=== PATIENT | male | born 1955 | race Two or more races ===

== ENCOUNTER 2019-06-28 13:25 | Inpatient (IN) | payer BC ==
[~2019-06-28] VITALS: Ht 160 cm; Wt 78.9 kg
[2019-06-28] VITALS (7 sets, daily range): BP systolic 96–132; BP diastolic 60–82
[2019-06-28 14:18] LABS: BASO % 0 % (0-3); EOS # 0.1 x10^3/uL (0.0-0.7); EOS % 1 % (0-3); HEMATOCRIT 40.1 % (39.0-53.0); HEMOGLOBIN 13.4 g/dL (13.0-17.5); LYMPH % 8 % (24-48); MEAN CORPUSCULAR HEMOGLOBIN 30 pg (25-35); MEAN CORPUSCULAR HGB CONC 33 g/dL (31-37); MEAN CORPUSCULAR VOLUME 91 fL (79-100); MONO # 0.3 x10^3/uL (0.0-1.1); MONO % 2 % (0-9); NEUT # 10.5 x10^3/uL (1.8-7.7); NEUT % 88 % (31-73); PLATELET COUNT 426 x10^3/uL (140-400); RED BLOOD COUNT 4.42 x10^6/uL (4.30-5.70); RED CELL DISTRIBUTION WIDTH 13.5 % (11.5-14.5); WHITE BLOOD COUNT 11.9 x10^3/uL (4.0-11.0)
[2019-06-28 14:23] LABS: BILIRUBIN,URINE NEGATIVE (NEG); CLARITY,URINE CLEAR; COLOR,URINE AMBER; NITRITE,URINE NEGATIVE (NEG); PH,URINE 5.5; PROTEIN,URINE 100 mg/dL (NEG-TRACE)
[2019-06-28 14:27] LABS: PROTHROMBIN TIME PATIENT 15.9 SEC (11.7-14.0)
[2019-06-28 14:33] LABS: AMORPHOUS SEDIMENT,UR PRESENT /HPF; HYALINE CASTS, URINE FEW /HPF; SQUAMOUS EPITHELIAL CELL,UR FEW /LPF
[2019-06-28 14:34] LABS: GRANULAR CASTS,URINE MODERATE /HPF
[2019-06-28 14:35] LABS: BACTERIA,URINE FEW /HPF (0-FEW)
[2019-06-28 14:42] LABS: CALCIUM 9.1 mg/dL (8.5-10.1); CREATININE 2.1 mg/dL (0.7-1.3); GFR 31.9; POTASSIUM 3.9 mmol/L (3.5-5.1)
[2019-06-28 14:54] LABS: ALBUMIN 2.7 g/dL (3.4-5.0); ALBUMIN/GLOBULIN RATIO 0.5 (1.0-1.7); TOTAL BILIRUBIN 0.9 mg/dL (0.2-1.0); TOTAL PROTEIN 8.5 g/dL (6.4-8.2)
[2019-06-28] MEDS ORDERED: ONDANSETRON PF 4 MG/2 ML VIAL. IV ONE (15:00)
[2019-06-28] MEDS ORDERED: IV NORMAL SALINE 1000ML BAG 1,000 ML IV ONE ×2 (15:00→15:15)
[2019-06-28] MEDS ORDERED: fentaNYL PF VIAL 100 MCG/2 ML VIAL IVP ONE ×2 (15:00→17:00)
[2019-06-28] MEDS ORDERED: VANCOMYCIN 1GM IVPB FOR OMNI 250 ML IV ONE (15:15)
[2019-06-28] MEDS ORDERED: PIPERACILLIN/TAZOBACTAM 3.375 GM in IV NORMAL SALINE 50ML 50 ML IV ONE (15:15)
--- NOTE | 2019-06-28 15:17 | PHYS DOC ---
Past Medical History Past Medical History: Hypertension Past Surgical History: No Surgical History Alcohol Use: None Drug Use: None Adult General Chief Complaint Chief Complaint: ABDOMINAL PAIN HPI HPI Patient is a 63 year old male with history of hypertension who presents with complaining of abdominal pain. Patient complaining of constant and sharp lower abdominal pain for the last 2 weeks that getting worse with movement. Patient denies nausea and vomiting, diarrhea and constipation, urinary symptoms, fever and chills, abdominal distention, anorexia, history of abdominal pain. Review of Systems Review of Systems Constitutional: Denies fever or chills [] Eyes: Denies change in visual acuity, redness, or eye pain [] HENT: Denies nasal congestion or sore throat [] Respiratory: Denies cough or shortness of breath [] Cardiovascular: No additional information not addressed in HPI [] GI: Reports abdominal pain, denies nausea, vomiting, bloody stools or diarrhea [] : Denies dysuria or hematuria [] Musculoskeletal: Denies back pain or joint pain [] Integument: Denies rash or skin lesions [] Neurologic: Denies headache, focal weakness or sensory changes [] Endocrine: Denies polyuria or polydipsia [] All other systems were reviewed and found to be within normal limits, except as documented in this note. Current Medications Current Medications Allergies Allergies Allergies Coded Allergies Type Severity Reaction Last Updated Verified No Known Drug Allergies 06/28/19 No Physical Exam Physical Exam Constitutional: Well developed, well nourished, moderately distress, non-toxic appearance. [] HENT: Normocephalic, atraumatic, dry oral mucosa Eyes: PERRLA, EOMI, conjunctiva normal, no discharge. [] Neck: Normal range of motion, no tenderness, supple, no stridor. [] Cardiovascular: Tachycardia, systolic murmur [] Lungs & Thorax: Bilateral breath sounds clear to auscultation [] Abdomen: Mildly distended abdomen, increased bowel sounds, generalized t enderness with maximum tenderness in right lower quadrant with rebound tenderness. Skin: Warm, dry, no erythema, no rash. [] Back: No tenderness, no CVA tenderness. [] Extremities: No tenderness, no cyanosis, no clubbing, ROM intact, no edema. [] Neurologic: Alert and oriented X 3, normal motor function, normal sensory function, no focal deficits noted. [] Psychologic: Affect normal, judgement normal, mood normal. [] Current Patient Data Vital Signs Vital Signs Date Time Temp Pulse Resp B/P (MAP) Pulse Ox O2 Delivery O2 Flow Rate FiO2 06/28/19 14:45 104 17 102/60 (74) 97 Room Air 06/28/19 13:30 99.0 99.0 Lab Values Laboratory Tests Test 06/28/19 13:36 06/28/19 13:47 Urine Color Angela Urine Clarity Clear Urine pH 5.5 Urine Specific [place] 1.025 Urine Protein 100 mg/dL (NEG-TRACE) Urine Glucose (UA) Negative mg/dL (NEG) Urine Ketones (Stick) Negative mg/dL (NEG) Urine Blood Small (NEG) Urine Nitrite Negative (NEG) Urine Bilirubin Negative (NEG) Urine Urobilinogen Dipstick 1.0 mg/dL (0.2 mg/dL) Urine Leukocyte Esterase Trace (NEG) Urine RBC 3-5 /HPF (0-2) Urine WBC 1-4 /HPF (0-4) Urine Squamous Epithelial Cells Few /LPF Urine Amorphous Sediment Present /HPF Urine Bacteria Few /HPF (0-FEW) Urine Hyaline Casts Few /HPF Urine Granular Casts Moderate /HPF Urine Mucus Marked /LPF White Blood Count 11.9 x10^3/uL (4.0-11.0) H Red Blood Count 4.42 x10^6/uL (4.30-5.70) Hemoglobin 13.4 g/dL (13.0-17.5) Hematocrit 40.1 % (39.0-53.0) Mean Corpuscular Volume 91 fL (79-100) Mean Corpuscular Hemoglobin 30 pg (25-35) Mean Corpuscular Hemoglobin Concent 33 g/dL (31-37) Red Cell Distribution Width 13.5 % (11.5-14.5) Platelet Count 426 x10^3/uL (140-400) H Neutrophils (%) (Auto) 88 % (31-73) H Lymphocytes (%) (Auto) 8 % (24-48) L Monocytes (%) (Auto) 2 % (0-9) Eosinophils (%) (Auto) 1 % (0-3) Basophils (%) (Auto) 0 % (0-3) Neutrophils # (Auto) 10.5 x10^3/uL (1.8-7.7) H Lymphocytes # (Auto) 1.0 x10^3/uL (1.0-4.8) Monocytes # (Auto) 0.3 x10^3/uL (0.0-1.1) Eosinophils # (Auto) 0.1 x10^3/uL (0.0-0.7) Basophils # (Auto) 0.0 x10^3/uL (0.0-0.2) Segmented Neutrophils % 58 % (35-66) Band Neutrophils % 32 % (0-9) H Lymphocytes % 8 % (24-48) L Monocytes % 2 % (0-10) Dohle Bodies Present Platelet Estimate Increased (ADEQUATE) Prothrombin Time 15.9 SEC (11.7-14.0) H Prothrombin Time INR 1.3 (0.8-1.1) H Activated Partial Thromboplast Time 30 SEC (24-38) Sodium Level 133 mmol/L (136-145) L Potassium Level 3.9 mmol/L (3.5-5.1) Chloride Level 93 mmol/L (98-107) L Carbon Dioxide Level 29 mmol/L (21-32) Anion Gap 11 (6-14) Blood Urea Nitrogen 30 mg/dL (8-26) H Creatinine 2.1 mg/dL (0.7-1.3) H Estimated GFR (Cockcroft-Gault) 31.9 BUN/Creatinine Ratio 14 (6-20) Glucose Level 164 mg/dL (70-99) H Lactic Acid Level 7.2 mmol/L (0.4-2.0) *H Calcium Level 9.1 mg/dL (8.5-10.1) Total Bilirubin 0.9 mg/dL (0.2-1.0) Aspartate Amino Transferase (AST) 31 U/L (15-37) Alanine Aminotransferase (ALT) 35 U/L (16-63) Alkaline Phosphatase 202 U/L (46-116) H Troponin I Quantitative < 0.017 ng/mL (0.000-0.055) AP-Vwh-M-Type Natriuretic Peptide 343 pg/mL (0-124) H Total Protein 8.5 g/dL (6.4-8.2) H Albumin 2.7 g/dL (3.4-5.0) L Albumin/Globulin Ratio 0.5 (1.0-1.7) L Lipase 284 U/L (73-393) Laboratory Tests 06/28/19 13:47 Laboratory Tests 06/28/19 13:47 EKG EKG EKG interpreted by me. EKG at 1401 showed sinus tachycardia at rate of 109, normal WA and QT intervals, no acute ST and T-wave elevation. Radiology/Procedures Radiology/Procedures [][facility] [address] [place] [address] IMAGING REPORT Signed PATIENT: JUSTUS JAMESACCOUNT: [id number] : 1955 LOCATION: [facility]TH AGE: 63 SEX: M EXAM STATUS: ADM IN ORD. PHYSICIAN: BRITTA NIETO MD REASON: abdominal pain, X 2 WEEKS WORSE TODDAY PROCEDURE: CT ABD PEL W/ORAL CONTRST ONLY CT ABD PEL W/ORAL CONTRST ONLY dated 06/28/2019 3:27 PM Indication: Abdominal pain for 2 weeks, worse today. Comparison: No comparison is available. Technique: CT images were made following oral contrast ingestion. No IV contrast was given. One or more of the following individualized dose reduction techniques were utilized for this examination: 1. Automated exposure control 2. Adjustment of the mA and/or kV according to patient size 3. Use of iterative reconstruction technique Findings: There is a small right-sided pleural effusion. The lung bases otherwise are clear. The most superior portion of the liver was not entirely included on the exam, but no abnormality is seen within the liver or spleen. Evaluation is limited somewhat by lack of IV contrast. There is a trace of fluid around the liver. There appears to be a small gallstone in the gallbladder. The kidneys show no mass or obstruction. A small cyst is seen in the lower right kidney. The adrenal glands are not enlarged. The pancreas appears normal. No retroperitoneal or mesenteric adenopathy is seen. There is an inflammatory process in the right lower quadrant. This is in the region of the cecum and descending colon. There may be an intramural fluid collection along the margin of the cecum measuring about 6.0 cm AP, 3.8 cm mediolaterally, and 6.4 cm craniocaudally. There is a dense calcification just inferior to this measuring about 2.1 x 1.3 cm. There is some surrounding fat and soft tissue density. The appendix is not clearly discerned separate from this region. There is no bowel obstruction. Images through the pelvis show no abnormality of the distal ureters or bladder. The bladder was not well-distended. No pelvic or inguinal adenopathy is seen. There are fat-containing inguinal hernias bilaterally. There is no separate pelvic mass. A small amount of free fluid is seen on the right. There is no localized collection such as an abscess. No other inflammatory process is seen. IMPRESSION: There is an inflammatory process in the right lower quadrant centered around a large calcification. This is apparently near the cecum. There may be an intramural fluid collection along the right colon wall, possibly indicating an abscess. Findings are most likely related to ruptured appendicitis, although other etiologies are possible. Results were relayed to the ER physician. Electronically signed by: Urmila Silver Jr., MD (06/28/2019 4:07 PM) [facility] [place] DICTATED and SIGNED BY: URMILA SILVER Jr, MD DATE: 06/28/19 0023 Course & Med Decision Making Course & Med Decision Making Pertinent Labs and Imaging studies reviewed. (See chart for details) Evaluation of patient in ER showed 63-year-old male patient with complaining of lower abdominal pain for 2 weeks. Patient had temperature of 99.9, mild tachycardia, generalized abdominal tenderness with more in right lower quadrant tenderness and rebound tenderness of right lower quadrant. CT of abdomen and pelvis showed right lower quadrant abscess and intramural air. On-call surgeon Dr. Umaña consulted at 1614 and plan to take patient to OR. Patient had lactic acid of more than 7 and treated with sepsis protocol with IV fluid and antibiotic. Patient had 2 doses of fentanyl with improvement of his pain. Patient requiring admission for further evaluation and treatment. Discussed with Dr. Kenney who is in agreement with admission. Discussed findings and plan with patient and family, who acknowledge understanding and agreement. Dragon Disclaimer Dragon Disclaimer This electronic medical record was generated, in whole or in part, using a voice recognition dictation system. Departure Departure Impression: Primary Impression: Acute abdomen Additional Impressions: Intra-abdominal abscess Severe sepsis Acute renal insufficiency Disposition: 09 ADMITTED INPATIENT (At 1503) Admitting Physician: [facility] (Dr. Kenney accepted admission at 1502) Condition: GUARDED Referrals: MARELY JARRELL APRN (PCP) Critical Care Time Critical care time was [] minutes exclusive of procedures. Date and Time of Reassessment Date: Jun 28, 2019 Time: 16:30 Fluid Challenge Is the fluid challenge complet: Yes IBW Target Volume Used: Yes BMI > 30: Yes Vital Signs Vital Signs: Vital Signs Date Time Temp Pulse Resp B/P (MAP) Pulse Ox O2 Delivery O2 Flow Rate FiO2 06/28/19 14:45 104 17 102/60 (74) 97 Room Air 06/28/19 13:30 99.0 99.0 Temperature Source: Oral Respirations Respiratory Pattern: Normal Cardiovascular Pulse Rhythm: Regular Heart: Nml rate, reg. rhythm Lung Sounds Breath Sounds: Clear Capillary Refil Capillary Refill: Rt Hand < 3 seconds Peripheral Pulse Pulse Location: Radial Pulse Strength: Normal (2+) Pulse Assessment Method: NIBP Integumentary Skin Moisture: Dry Problem Qualifiers BRITTA NIETO MD Jun 28, 2019 15:17
[2019-06-28 15:40] LABS: % BANDS 32 % (0-9); % LYMPHS 8 % (24-48); % MONOS 2 % (0-10); % SEGS 58 % (35-66); PLT ESTIMATE INCREASED (ADEQUATE)
[2019-06-28] MEDS ORDERED: IOHEXOL 240 MG/ML 50ML VIAL. IV ONE (15:45)
[2019-06-28] MEDS ORDERED: CONTRAST GIVEN. MC PRN (15:45)
--- NOTE | 2019-06-28 16:10 | RAD ---
CT ABD PEL W/ORAL CONTRST ONLY dated 06/28/2019 3:27 PM Indication: Abdominal pain for 2 weeks, worse today. Comparison: No comparison is available. Technique: CT images were made following oral contrast ingestion. No IV contrast was given. One or more of the following individualized dose reduction techniques were utilized for this examination: 1. Automated exposure control 2. Adjustment of the mA and/or kV according to patient size 3. Use of iterative reconstruction technique Findings: There is a small right-sided pleural effusion. The lung bases otherwise are clear. The most superior portion of the liver was not entirely included on the exam, but no abnormality is seen within the liver or spleen. Evaluation is limited somewhat by lack of IV contrast. There is a trace of fluid around the liver. There appears to be a small gallstone in the gallbladder. The kidneys show no mass or obstruction. A small cyst is seen in the lower right kidney. The adrenal glands are not enlarged. The pancreas appears normal. No retroperitoneal or mesenteric adenopathy is seen. There is an inflammatory process in the right lower quadrant. This is in the region of the cecum and descending colon. There may be an intramural fluid collection along the margin of the cecum measuring about 6.0 cm AP, 3.8 cm mediolaterally, and 6.4 cm craniocaudally. There is a dense calcification just inferior to this measuring about 2.1 x 1.3 cm. There is some surrounding fat and soft tissue density. The appendix is not clearly discerned separate from this region. There is no bowel obstruction. Images through the pelvis show no abnormality of the distal ureters or bladder. The bladder was not well-distended. No pelvic or inguinal adenopathy is seen. There are fat-containing inguinal hernias bilaterally. There is no separate pelvic mass. A small amount of free fluid is seen on the right. There is no localized collection such as an abscess. No other inflammatory process is seen. IMPRESSION: There is an inflammatory process in the right lower quadrant centered around a large calcification. This is apparently near the cecum. There may be an intramural fluid collection along the right colon wall, possibly indicating an abscess. Findings are most likely related to ruptured appendicitis, although other etiologies are possible. Results were relayed to the ER physician. Electronically signed by: Iker Silver Jr., MD (06/28/2019 4:07 PM) [facility] [place]
[2019-06-28] MEDS ORDERED: ROCURONIUM 50 MG/5 ML VIAL. ONE (16:46)
[2019-06-28] MEDS ORDERED: fentaNYL PF VIAL 100 MCG/2 ML VIAL ONE ×3 (16:46→20:27)
[2019-06-28] MEDS ORDERED: SUCCINYLCHOLINE 200 MG/10 ML VIAL. ONE (16:46)
[2019-06-28] MEDS ORDERED: PROPOFOL 20 ML IV ONE (16:46)
[2019-06-28] MEDS ORDERED: LIDOCAINE 2% PF 5 ML VIAL. ONE (16:46)
--- NOTE | 2019-06-28 17:28 | PDOC2 ---
CONSULT Date of Consult Date of Consult DATE: 06/28/19 TIME: 17:24 Reason for Consult Reason for Consult: Abdominal pain Referring Physician Referring Physician: Pablito Identification/Chief Complaint Chief Complaint Abdominal pain for 2 weeks Source Source: Chart review, Patient History of Present Illness Reason for Visit: 63-year-old male whose complaint of abdominal pain for proximally 2 weeks unrelenting becoming worse that's why came to the emergency department today. He denies any nausea vomiting fevers or chills but worsening of his abdominal pain. States he's had normal bowel movements. Past Medical History Cardiovascular: HTN Past Surgical History Past Surgical History: Other (back surgery) Family History Family History: Family History Unknown Social History No ALCOHOL: rare Drugs: None Lives: with Family Current Problem List Problem List Problems Medical Problems: (1) Acute abdomen Status: Acute (2) Acute renal insufficiency Status: Acute (3) Intra-abdominal abscess Status: Acute (4) Severe sepsis Status: Acute Current Medications Current Medications Current Medications Sodium Chloride 1,000 ml @ 1,000 mls/hr 1X ONCE IV Last administered on 06/28/19at 14:59; Start 06/28/19 at 15:00; Stop 06/28/19 at 15:59; Status DC Fentanyl Citrate (Fentanyl 2ml Vial) 50 mcg 1X ONCE IVP Last administered on 06/28/19at 15:00; Start 06/28/19 at 15:00; Stop 06/28/19 at 15:01; Status DC Ondansetron HCl (Zofran) 4 mg 1X ONCE IV Last administered on 06/28/19at 14:59; Start 06/28/19 at 15:00; Stop 06/28/19 at 15:01; Status DC Sodium Chloride 1,000 ml @ 1,000 mls/hr 1X ONCE IV Last administered on 06/28/19at 16:32; Start 06/28/19 at 15:15; Stop 06/28/19 at 16:14; Status DC Piperacillin Sod/ Tazobactam Sod 3.375 gm/Sodium Chloride 50 ml @ 100 mls/hr 1X ONCE IV Last administered on 06/28/19at 15:20; Start 06/28/19 at 15:15; Stop 06/28/19 at 15:44; Status DC Vancomycin HCl 250 ml @ 250 mls/hr 1X ONCE IV Last administered on 06/28/19at 16:29; Start 06/28/19 at 15:15; Stop 06/28/19 at 16:14; Status DC Iohexol (Omnipaque 240 Mg/ml) 50 ml 1X ONCE IV Last administered on 06/28/19at 15:20; Start 06/28/19 at 15:45; Stop 06/28/19 at 15:46; Status DC Info (CONTRAST GIVEN -- Rx MONITORING) 1 each PRN DAILY PRN MC SEE COMMENTS; Start 06/28/19 at 15:45; Stop 06/30/19 at 15:44 Sodium Chloride 1,000 ml @ 150 mls/hr Q6H40M IV ; Start 06/28/19 at 16:30; Stop 06/29/19 at 16:29 Propofol 20 ml @ As Directed STK-MED ONCE IV ; Start 06/28/19 at 16:46; Stop 06/28/19 at 16:46; Status DC Lidocaine HCl (Lidocaine Pf 2% Vial) 5 ml STK-MED ONCE .ROUTE ; Start 06/28/19 at 16:46; Stop 06/28/19 at 16:46; Status DC Fentanyl Citrate (Fentanyl 2ml Vial) 100 mcg STK-MED ONCE .ROUTE ; Start 06/28/19 at 16:46; Stop 06/28/19 at 16:46; Status DC Succinylcholine Chloride (Anectine) 200 mg STK-MED ONCE .ROUTE ; Start 06/28/19 at 16:46; Stop 06/28/19 at 16:46; Status DC Rocuronium [place] (Zemuron) 50 mg STK-MED ONCE .ROUTE ; Start 06/28/19 at 16:46; Stop 06/28/19 at 16:46; Status DC Fentanyl Citrate (Fentanyl 2ml Vial) 50 mcg 1X ONCE IVP Last administered on 06/28/19at 16:49; Start 06/28/19 at 17:00; Stop 06/28/19 at 17:01; Status DC Bupivacaine HCl/ Epinephrine Bitart (Sensorcaine-Epi 0.25%-1:779304 Mpf) 30 ml 1X ONCE INJ ; Start 06/28/19 at 18:00; Stop 06/28/19 at 18:01 Allergies Allergies: Coded Allergies: No Known Drug Allergies (Unverified , 06/28/19) ROS Gastrointestinal: Yes Abdominal Pain Physical Exam General: Alert, Oriented X3, Cooperative, moderate distress HEENT: PERRLA, EOMI Lungs: Clear to auscultation, Normal air movement Heart: Regular rate, No murmurs Abdomen: Soft, Other (diffusely tender worse in the right lower quadrant hypoactive bowel sounds mildly distended) Extremities: No edema Skin: No significant lesion Neuro: Normal speech Psych/Mental Status: Mental status NL Vitals VITALS Vital Signs Date Time Temp Pulse Resp B/P (MAP) Pulse Ox O2 Delivery O2 Flow Rate FiO2 06/28/19 16:49 17 96 Room Air 06/28/19 15:00 100 106/64 (78) 06/28/19 13:30 99.0 99.0 Labs Labs Laboratory Tests Test 06/28/19 13:36 06/28/19 13:47 Urine Color Angela Urine Clarity Clear Urine pH 5.5 Urine Specific [place] 1.025 Urine Protein 100 mg/dL (NEG-TRACE) Urine Glucose (UA) Negative mg/dL (NEG) Urine Ketones (Stick) Negative mg/dL (NEG) Urine Blood Small (NEG) Urine Nitrite Negative (NEG) Urine Bilirubin Negative (NEG) Urine Urobilinogen Dipstick 1.0 mg/dL (0.2 mg/dL) Urine Leukocyte Esterase Trace (NEG) Urine RBC 3-5 /HPF (0-2) Urine WBC 1-4 /HPF (0-4) Urine Squamous Epithelial Cells Few /LPF Urine Amorphous Sediment Present /HPF Urine Bacteria Few /HPF (0-FEW) Urine Hyaline Casts Few /HPF Urine Granular Casts Moderate /HPF Urine Mucus Marked /LPF White Blood Count 11.9 x10^3/uL (4.0-11.0) Red Blood Count 4.42 x10^6/uL (4.30-5.70) Hemoglobin 13.4 g/dL (13.0-17.5) Hematocrit 40.1 % (39.0-53.0) Mean Corpuscular Volume 91 fL (79-100) Mean Corpuscular Hemoglobin 30 pg (25-35) Mean Corpuscular Hemoglobin Concent 33 g/dL (31-37) Red Cell Distribution Width 13.5 % (11.5-14.5) Platelet Count 426 x10^3/uL (140-400) Neutrophils (%) (Auto) 88 % (31-73) Lymphocytes (%) (Auto) 8 % (24-48) Monocytes (%) (Auto) 2 % (0-9) Eosinophils (%) (Auto) 1 % (0-3) Basophils (%) (Auto) 0 % (0-3) Neutrophils # (Auto) 10.5 x10^3/uL (1.8-7.7) Lymphocytes # (Auto) 1.0 x10^3/uL (1.0-4.8) Monocytes # (Auto) 0.3 x10^3/uL (0.0-1.1) Eosinophils # (Auto) 0.1 x10^3/uL (0.0-0.7) Basophils # (Auto) 0.0 x10^3/uL (0.0-0.2) Segmented Neutrophils % 58 % (35-66) Band Neutrophils % 32 % (0-9) Lymphocytes % 8 % (24-48) Monocytes % 2 % (0-10) Dohle Bodies Present Platelet Estimate Increased (ADEQUATE) Prothrombin Time 15.9 SEC (11.7-14.0) Prothromb Time International Ratio 1.3 (0.8-1.1) Activated Partial Thromboplast Time 30 SEC (24-38) Sodium Level 133 mmol/L (136-145) Potassium Level 3.9 mmol/L (3.5-5.1) Chloride Level 93 mmol/L (98-107) Carbon Dioxide Level 29 mmol/L (21-32) Anion Gap 11 (6-14) Blood Urea Nitrogen 30 mg/dL (8-26) Creatinine 2.1 mg/dL (0.7-1.3) Estimated GFR (Cockcroft-Gault) 31.9 BUN/Creatinine Ratio 14 (6-20) Glucose Level 164 mg/dL (70-99) Lactic Acid Level 7.2 mmol/L (0.4-2.0) Calcium Level 9.1 mg/dL (8.5-10.1) Total Bilirubin 0.9 mg/dL (0.2-1.0) Aspartate Amino Transf (AST/SGOT) 31 U/L (15-37) Alanine Aminotransferase (ALT/SGPT) 35 U/L (16-63) Alkaline Phosphatase 202 U/L (46-116) Troponin I Quantitative < 0.017 ng/mL (0.000-0.055) JL-Xrt-F-Type Natriuretic Peptide 343 pg/mL (0-124) Total Protein 8.5 g/dL (6.4-8.2) Albumin 2.7 g/dL (3.4-5.0) Albumin/Globulin Ratio 0.5 (1.0-1.7) Lipase 284 U/L (73-393) Laboratory Tests Test 06/28/19 13:36 06/28/19 13:47 Urine Color Angela Urine Clarity Clear Urine pH 5.5 Urine Specific [place] 1.025 Urine Protein 100 mg/dL (NEG-TRACE) Urine Glucose (UA) Negative mg/dL (NEG) Urine Ketones (Stick) Negative mg/dL (NEG) Urine Blood Small (NEG) Urine Nitrite Negative (NEG) Urine Bilirubin Negative (NEG) Urine Urobilinogen Dipstick 1.0 mg/dL (0.2 mg/dL) Urine Leukocyte Esterase Trace (NEG) Urine RBC 3-5 /HPF (0-2) Urine WBC 1-4 /HPF (0-4) Urine Squamous Epithelial Cells Few /LPF Urine Amorphous Sediment Present /HPF Urine Bacteria Few /HPF (0-FEW) Urine Hyaline Casts Few /HPF Urine Granular Casts Moderate /HPF Urine Mucus Marked /LPF White Blood Count 11.9 x10^3/uL (4.0-11.0) Red Blood Count 4.42 x10^6/uL (4.30-5.70) Hemoglobin 13.4 g/dL (13.0-17.5) Hematocrit 40.1 % (39.0-53.0) Mean Corpuscular Volume 91 fL (79-100) Mean Corpuscular Hemoglobin 30 pg (25-35) Mean Corpuscular Hemoglobin Concent 33 g/dL (31-37) Red Cell Distribution Width 13.5 % (11.5-14.5) Platelet Count 426 x10^3/uL (140-400) Neutrophils (%) (Auto) 88 % (31-73) Lymphocytes (%) (Auto) 8 % (24-48) Monocytes (%) (Auto) 2 % (0-9) Eosinophils (%) (Auto) 1 % (0-3) Basophils (%) (Auto) 0 % (0-3) Neutrophils # (Auto) 10.5 x10^3/uL (1.8-7.7) Lymphocytes # (Auto) 1.0 x10^3/uL (1.0-4.8) Monocytes # (Auto) 0.3 x10^3/uL (0.0-1.1) Eosinophils # (Auto) 0.1 x10^3/uL (0.0-0.7) Basophils # (Auto) 0.0 x10^3/uL (0.0-0.2) Segmented Neutrophils % 58 % (35-66) Band Neutrophils % 32 % (0-9) Lymphocytes % 8 % (24-48) Monocytes % 2 % (0-10) Dohle Bodies Present Platelet Estimate Increased (ADEQUATE) Prothrombin Time 15.9 SEC (11.7-14.0) Prothromb Time International Ratio 1.3 (0.8-1.1) Activated Partial Thromboplast Time 30 SEC (24-38) Sodium Level 133 mmol/L (136-145) Potassium Level 3.9 mmol/L (3.5-5.1) Chloride Level 93 mmol/L (98-107) Carbon Dioxide Level 29 mmol/L (21-32) Anion Gap 11 (6-14) Blood Urea Nitrogen 30 mg/dL (8-26) Creatinine 2.1 mg/dL (0.7-1.3) Estimated GFR (Cockcroft-Gault) 31.9 BUN/Creatinine Ratio 14 (6-20) Glucose Level 164 mg/dL (70-99) Lactic Acid Level 7.2 mmol/L (0.4-2.0) Calcium Level 9.1 mg/dL (8.5-10.1) Total Bilirubin 0.9 mg/dL (0.2-1.0) Aspartate Amino Transf (AST/SGOT) 31 U/L (15-37) Alanine Aminotransferase (ALT/SGPT) 35 U/L (16-63) Alkaline Phosphatase 202 U/L (46-116) Troponin I Quantitative < 0.017 ng/mL (0.000-0.055) CB-Fre-F-Type Natriuretic Peptide 343 pg/mL (0-124) Total Protein 8.5 g/dL (6.4-8.2) Albumin 2.7 g/dL (3.4-5.0) Albumin/Globulin Ratio 0.5 (1.0-1.7) Lipase 284 U/L (73-393) Images Images CT scan of the abdomen and pelvis showing marked inflammatory changes in the right lower quadrant most likely related to a perforated appendix. Of note was a large calcification in the right lower quadrant possibly fecalith. CT scan did not show fluid collection consistent with a drainable abscess. Assessment/Plan Assessment/Plan Acute perforated appendix with sepsis Plan laparoscopic appendectomy possible open appendectomy ARELI OBRIEN MD Jun 28, 2019 17:28
[2019-06-28] MEDS ORDERED: ONDANSETRON PF 4 MG/2 ML VIAL. ONE (17:52)
[2019-06-28] MEDS ORDERED: PHENYLEPHRINE in 0.9% NACL PF 1 MG/10 ML SYRINGE. IV ONE (17:52)
[2019-06-28] MEDS ORDERED: DEXAMETHASONE SOD PHOS 4 MG/ML VIAL ONE (17:52)
[2019-06-28] MEDS ORDERED: BUPIVACAINE-EPI 0.25%-1:200000 MPF 30 ML VIAL. INJ ONE (18:00)
[2019-06-28] MEDS ORDERED: NEOSTIGMINE METHYLSULFATE 5 MG/5 ML SYRINGE. ONE (18:04)
[2019-06-28] MEDS ORDERED: GLYCOPYRROLATE 1 MG/5 ML VIAL. ONE (18:05)
[2019-06-28] MEDS ORDERED: IV RINGERS,LACTATED 1000ML 1,000 ML IV SCH (18:22)
[2019-06-28] MEDS ORDERED: fentaNYL PF VIAL 100 MCG/2 ML VIAL IV PRN (18:30)
[2019-06-28] MEDS ORDERED: PROCHLORPERAZINE 10 MG/2 ML VIAL. IV PRN (18:30)
[2019-06-28] MEDS ORDERED: ONDANSETRON PF 4 MG/2 ML VIAL. IV PRN (18:30)
[2019-06-28] MEDS ORDERED: MORPHINE SULFATE 2 MG/ML VIAL. IV PRN (18:30)
[2019-06-28] MEDS ORDERED: 0.9 % SODIUM CHLORIDE 10 ML DISP.SYRIN. IV PRN (19:45)
--- NOTE | 2019-06-28 19:45 | PDOC4 ---
Operative Note Operative Note Date: 06/28/2019 Preoperative diagnosis: Perforated appendicitis Postoperative diagnosis: Perforated appendix and perforated cecum from foreign body Procedure: Diagnostic laparoscopy converted to open laparotomy with resection of cecum and primary anastomosis Specimen: Cecum and terminal ileum appendix and cultures Surgeon: Leeroy Dictation: Patient is a 63-year-old male is better the hospital through the emergency department with abdominal pain for [address] scan showing signs consistent with acute appendicitis with perforation and phlegmon. Procedure of laparoscopic appendectomy was explained to the patient in detail all risks benefits were also discussed including bleeding infection injury to intra- abdominal contents possibly necessitating further open operations alternatives to this procedure also discussed with the patient who seemed to understand and gave both verbal and written consent to have the procedure performed. Patient was taken to the operating room placed in the supine position general anesthesia was initiated once patient was sleep and intubated his abdomen was prepped and draped usual sterile fashion using ChloraPrep and area just below the umbilicus was injected with quarter percent Marcaine with epinephrine incision was made with 11 blade scalpel varies needle was placed within the abdomen creating pneumoperitoneum once this was complete 11 mm port was placed and 5 mill meter camera was placed within the abdomen and inspected was noted there was quite a few loops of dilated small bowel and free cloudy ascites within the abdomen. A 5 mm port was placed in the right upper quadrant a 5 mm port was placed in the high in the midline and one on the mid left abdomen. Working through these ports the appendix was visualized which appeared to be a necrotic stump with pus and feculent material within the abdomen this was all suctioned from the abdomen is also noted that the cecum looked to be compromised with possible perforation within the cecum was at this point is felt to convert to open laparotomy midline incision was made with electrocautery this carried down through the subcutaneous anus tissue using electrocautery divided hemostasis fashion was opened and the abdomen entered there was quite a bit of purulent ascites this was all suctioned from the abdomen. The cecum was visualized definitely had a perforation and appears that a foreign body either a fruit pit or calcified fecalith had perforated through the cecum and was in the abdomen this was removed the white line of Toldt was taken down with electrocautery freeing up the right colon to allow for a resection of the cecum and terminal ileum. The distal small bowel was stapled and transected with a TOSHA stapler the proximal right colon was stapled and transected just beyond the cecum. A [id number] stapled anastomosis was performed with the small bowel and right colon. The enterotomy of the small bowel and colon were closed with a running interlocking 3-0 Vicryl and further closed with 3-0 Vicryl Lembert sutures. The abdomen was irrigated with copious amounts of normal saline and suctioned dry. A 19 Niuean KATHRYN drain was placed in the right lower quadrant along the right lateral gutter of the abdomen and brought out through a separate stab incision in the right lower quadrant this was sewn in place with 2-0 silk sutures. Fascia was then closed with running oh looped PDS skin was closed with kojo leaving a Navdeep drain within the subcutaneous space. The wound was then dressed with 4 x 4's Medipore tape. Patient was awakened and extubated in the operating room taken to recovery in stable condition all sponge instrument needle counts listed as correct estimated blood loss 100 mL ARELI OBRIEN MD Jun 28, 2019 19:44
[2019-06-28] MEDS: fentaNYL PF VIAL 100 MCG/2 ML VIAL IV PRN ×4 (20:07→20:38)
[2019-06-28] MEDS: IV NORMAL SALINE 1000ML BAG 1,000 ML IV SCH ×2 (21:00→23:10)
[2019-06-28] MEDS: IV DEXTROSE 5%-LACT RINGERS 1,000 ML IV SCH (21:52)
[2019-06-28] MEDS: MORPHINE SULFATE 2 MG/ML VIAL. IV PRN (21:59)
[2019-06-28] MEDS: HYDROmorphone 2 MG/ML VIAL IV PRN (22:41)
[2019-06-29] VITALS (9 sets, daily range): BP systolic 105–144; BP diastolic 58–82
[2019-06-29] MEDS ORDERED: LISI-130 PO
[2019-06-29] MEDS: HYDROmorphone 2 MG/ML VIAL IV PRN ×2 (01:25→04:56)
[2019-06-29] MEDS: IV DEXTROSE 5%-LACT RINGERS 1,000 ML IV SCH (04:56)
[2019-06-29 05:20] LABS: BASO % 0 % (0-3); EOS % 0 % (0-3); HEMATOCRIT 35.1 % (39.0-53.0); HEMOGLOBIN 11.7 g/dL (13.0-17.5); LYMPH # 0.5 x10^3/uL (1.0-4.8); LYMPH % 3 % (24-48); MEAN CORPUSCULAR HEMOGLOBIN 30 pg (25-35); MEAN CORPUSCULAR HGB CONC 33 g/dL (31-37); MEAN CORPUSCULAR VOLUME 90 fL (79-100); MONO # 0.6 x10^3/uL (0.0-1.1); MONO % 3 % (0-9); NEUT # 16.3 x10^3/uL (1.8-7.7); NEUT % 94 % (31-73); PLATELET COUNT 366 x10^3/uL (140-400); RED BLOOD COUNT 3.89 x10^6/uL (4.30-5.70); RED CELL DISTRIBUTION WIDTH 13.5 % (11.5-14.5); WHITE BLOOD COUNT 17.4 x10^3/uL (4.0-11.0)
[2019-06-29] MEDS: IV NORMAL SALINE 1000ML BAG 1,000 ML IV SCH ×3 (05:50→14:48)
[2019-06-29] MEDS ORDERED: TEMAZEPAM 7.5 MG CAPSULE PO PRN (07:30)
[2019-06-29] MEDS ORDERED: CALCIUM CARBONATE 500 MG TAB.CHEW PO PRN (07:30)
[2019-06-29] MEDS: oxyCODONE/APAP 5/325 1 TAB TABLET PO PRN (08:39)
--- NOTE | 2019-06-29 09:32 | PDOC1 ---
History and Physical Date of Admission Date of Admission DATE: 06/29/19 TIME: 09:28 Identification/Chief Complaint Chief Complaint abd pain, now post lap appy for perf appy Source Source: Caregiver, Chart review, Patient History of Present Illness History of Present Illness 63 HIsapnic male but can speak some mauritanian, no past medical hx, no home meds to reconcile. last hospitalization was 1997, comes in for perf appy after suffering for 2 week hx abd pain, HE underwent lap appy sunday DR Umaña, now NGT< post op pain, LEukocytosis, no fevers, on flagyl IV per GS and still NPO at bedside HE wants to walk, eager to get better soon Past Medical History Cardiovascular: No pertinent hx Pulmonary: No pertinent hx GI: No pertinent hx Heme/Onc: No pertinent hx Hepatobiliary: No pertinent hx Psych: No pertinent hx Rheumatologic: No pertinent hx Infectious disease: No pertinent hx ENT: No pertinent hx Renal/: No pertinent hx Endocrine: No pertinent hx Dermatology: No pertinent hx Past Surgical History Past Surgical History: Appendectomy, Other (back surgery) Family History Family History: Family History Unknown Social History Smoke: No ALCOHOL: rare Drugs: None Current Problem List Problem List Problems Medical Problems: (1) Acute abdomen Status: Acute (2) Acute renal insufficiency Status: Acute (3) Intra-abdominal abscess Status: Acute (4) Severe sepsis Status: Acute Current Medications Current Medications Current Medications Sodium Chloride 1,000 ml @ 1,000 mls/hr 1X ONCE IV Last administered on 06/28/19at 14:59; Start 06/28/19 at 15:00; Stop 06/28/19 at 15:59; Status DC Fentanyl Citrate (Fentanyl 2ml Vial) 50 mcg 1X ONCE IVP Last administered on 06/28/19at 15:00; Start 06/28/19 at 15:00; Stop 06/28/19 at 15:01; Status DC Ondansetron HCl (Zofran) 4 mg 1X ONCE IV Last administered on 06/28/19at 14:59; Start 06/28/19 at 15:00; Stop 06/28/19 at 15:01; Status DC Sodium Chloride 1,000 ml @ 1,000 mls/hr 1X ONCE IV Last administered on 06/28/19at 16:32; Start 06/28/19 at 15:15; Stop 06/28/19 at 16:14; Status DC Piperacillin Sod/ Tazobactam Sod 3.375 gm/Sodium Chloride 50 ml @ 100 mls/hr 1X ONCE IV Last administered on 06/28/19at 15:20; Start 06/28/19 at 15:15; Stop 06/28/19 at 15:44; Status DC Vancomycin HCl 250 ml @ 250 mls/hr 1X ONCE IV Last administered on 06/28/19at 16:29; Start 06/28/19 at 15:15; Stop 06/28/19 at 16:14; Status DC Iohexol (Omnipaque 240 Mg/ml) 50 ml 1X ONCE IV Last administered on 06/28/19at 15:20; Start 06/28/19 at 15:45; Stop 06/28/19 at 15:46; Status DC Info (CONTRAST GIVEN -- Rx MONITORING) 1 each PRN DAILY PRN MC SEE COMMENTS; S tart 06/28/19 at 15:45; Stop 06/30/19 at 15:44 Sodium Chloride 1,000 ml @ 150 mls/hr Q6H40M IV Last administered on 06/29/19at 08:41; Start 06/28/19 at 16:30; Stop 06/29/19 at 16:29 Propofol 20 ml @ As Directed STK-MED ONCE IV ; Start 06/28/19 at 16:46; Stop 06/28/19 at 16:46; Status DC Lidocaine HCl (Lidocaine Pf 2% Vial) 5 ml STK-MED ONCE .ROUTE ; Start 06/28/19 at 16:46; Stop 06/28/19 at 16:46; Status DC Fentanyl Citrate (Fentanyl 2ml Vial) 100 mcg STK-MED ONCE .ROUTE ; Start 06/28/19 at 16:46; Stop 06/28/19 at 16:46; Status DC Succinylcholine Chloride (Anectine) 200 mg STK-MED ONCE .ROUTE ; Start 06/28/19 at 16:46; Stop 06/28/19 at 16:46; Status DC Rocuronium Norton (Zemuron) 50 mg STK-MED ONCE .ROUTE ; Start 06/28/19 at 16:46; Stop 06/28/19 at 16:46; Status DC Fentanyl Citrate (Fentanyl 2ml Vial) 50 mcg 1X ONCE IVP Last administered on 06/28/19at 16:49; Start 06/28/19 at 17:00; Stop 06/28/19 at 17:01; Status DC Bupivacaine HCl/ Epinephrine Bitart (Sensorcaine-Epi 0.25%-1:193246 Mpf) 30 ml 1X ONCE INJ Last administered on 06/28/19at 17:56; Start 06/28/19 at 18:00; Stop 06/28/19 at 18:01; Status DC Ondansetron HCl (Zofran) 4 mg STK-MED ONCE .ROUTE ; Start 06/28/19 at 17:52; Stop 06/28/19 at 17:53; Status DC Phenylephrine HCl (PHENYLEPHRINE in 0.9% NACL PF) 1 mg STK-MED ONCE IV ; Start 06/28/19 at 17:52; Stop 06/28/19 at 17:53; Status DC Dexamethasone Sodium Phosphate (Decadron) 4 mg STK-MED ONCE .ROUTE ; Start 06/28/19 at 17:52; Stop 06/28/19 at 17:53; Status DC Neostigmine Methylsulfate (Neostigmine Methylsulfate) 5 mg STK-MED ONCE .ROUTE ; Start 06/28/19 at 18:04; Stop 06/28/19 at 18:05; Status DC Glycopyrrolate (Robinul) 1 mg STK-MED ONCE .ROUTE ; Start 06/28/19 at 18:05; Stop 06/28/19 at 18:05; Status DC Ondansetron HCl (Zofran) 4 mg PRN Q6HRS PRN IV NAUSEA/VOMITING Last administered on 06/28/19at 22:40; Start 06/28/19 at 18:30; Stop 06/29/19 at 18:29 Fentanyl Citrate (Fentanyl 2ml Vial) 25 mcg PRN Q5MIN PRN IV MILD PAIN 1-3; Start 06/28/19 at 18:30; Stop 06/29/19 at 09:27; Status DC Fentanyl Citrate (Fentanyl 2ml Vial) 50 mcg PRN Q5MIN PRN IV MODERATE TO SEVERE PAIN Last administered on 06/28/19at 20:38; Start 06/28/19 at 18:30; Stop 06/29/19 at 09:27; Status DC Morphine Sulfate (Morphine Sulfate) 1 mg PRN Q10MIN PRN IV SEVERE PAIN 7-10; Start 06/28/19 at 18:30; Stop 06/29/19 at 09:27; Status DC Ringer's Solution 1,000 ml @ 30 mls/hr Q24H IV Last administered on 06/28/19at 20:10; Start 06/28/19 at 18:22; Stop 06/29/19 at 06:21; Status DC Hydromorphone HCl (Dilaudid) 0.5 mg PRN Q10MIN PRN IV SEV PAIN, Second choice Last administered on 06/29/19 04:56; Start 06/28/19 at 18:30; Stop 06/29/19 at 09:27; Status DC Prochlorperazine Edisylate (Compazine) 5 mg PACU PRN PRN IV NAUSEA, MRX1; Start 06/28/19 at 18:30; Stop 06/29/19 at 18:29 Sodium Chloride (Normal Saline Flush) 3 ml QSHIFT PRN IV AFTER MEDS AND BLOOD DRAWS; Start 06/28/19 at 19:45 Morphine Sulfate (Morphine Sulfate) 2 mg PRN Q3HRS PRN IV PAIN Last administered on 06/28/19at 21:59; Start 06/28/19 at 19:45 Oxycodone/ Acetaminophen (Percocet 5/325) 1 tab PRN Q4HRS PRN PO MILD PAIN, 1ST CHOICE; Start 06/28/19 at 19:45 Oxycodone/ Acetaminophen (Percocet 5/325) 2 tab PRN Q4HRS PRN PO MODERATE PAIN, SEVERE PAIN Last administered on 06/29/19at 08:39; Start 06/28/19 at 19:45 Ondansetron HCl (Zofran) 4 mg PRN Q6HRS PRN IV NAUSEA, 1ST CHOICE; Start 06/28/19 at 19:45 Dextrose/Lactated Ringer's 1,000 ml @ 150 mls/hr Q6H40M IV Last administered on 06/29/19at 04:56; Start 06/28/19 at 19:45; Stop 06/29/19 at 07:26; Status DC Metronidazole 100 ml @ 100 mls/hr Q8HRS IV Last administered on 06/29/19at 05:56; Start 06/28/19 at 21:00 Fentanyl Citrate (Fentanyl 2ml Vial) 100 mcg STK-MED ONCE .ROUTE ; Start 06/28/19 at 20:02; Stop 06/28/19 at 20:02; Status DC Fentanyl Citrate (Fentanyl 2ml Vial) 100 mcg STK-MED ONCE .ROUTE ; Start 06/28/19 at 20:27; Stop 06/28/19 at 20:27; Status DC Calcium Carbonate/ Glycine (Tums) 500 mg PRN AFTMEALHC PRN PO INDIGESTION; Start 06/29/19 at 07:30 Temazepam (Restoril) 7.5 mg PRN QHS PRN PO INSOMNIA; Start 06/29/19 at 07:30 Active Scripts Active Reported Lisinopril 40 Mg Tablet 1 Tab PO DAILY Allergies Allergies: Coded Allergies: No Known Drug Allergies (Unverified , 06/28/19) ROS Review of System post op pain all else is neg Physical Exam General: Alert, Oriented X3, Cooperative, No acute distress HEENT: Atraumatic, PERRLA, EOMI, Other (NGT in place) Lungs: Clear to auscultation, Normal air movement Heart: S1S2, RRR, no thrills, no rubs, no gallops, no murmurs Cardiovascular: S1, S2 Abdomen: Soft, Other (midline dressingm, dry, post op soreness) Male Genitals Exam: normal genitalia, normal prostate Rectal Exam: not examined PELVIC: Nml ext genitalia Extremities: No clubbing, No cyanosis, No edema, Normal pulses, No tenderness/swelling Skin: No rashes, No breakdown, No significant lesion Neuro: Normal gait, Normal speech, Strength at 5/5 X4 ext, Normal tone, Sensation intact, Cranial nerves 3-12 NL, Reflexes 2+ Psych/Mental Status: Mental status NL, Mood NL Vitals Vitals Vital Signs Date Time Temp Pulse Resp B/P (MAP) Pulse Ox O2 Delivery O2 Flow Rate FiO2 06/29/19 08:39 Nasal Cannula 2.0 06/29/19 07:00 97.6 84 18 113/79 (90) 98 97.6 Labs Labs Laboratory Tests Test 06/28/19 13:36 06/28/19 13:47 06/28/19 20:11 06/28/19 20:40 Urine Color Angela Urine Clarity Clear Urine pH 5.5 Urine Specific [place] 1.025 Urine Protein 100 mg/dL (NEG-TRACE) Urine Glucose (UA) Negative mg/dL (NEG) Urine Ketones (Stick) Negative mg/dL (NEG) Urine Blood Small (NEG) Urine Nitrite Negative (NEG) Urine Bilirubin Negative (NEG) Urine Urobilinogen Dipstick 1.0 mg/dL (0.2 mg/dL) Urine Leukocyte Esterase Trace (NEG) Urine RBC 3-5 /HPF (0-2) Urine WBC 1-4 /HPF (0-4) Urine Squamous Epithelial Cells Few /LPF Urine Amorphous Sediment Present /HPF Urine Bacteria Few /HPF (0-FEW) Urine Hyaline Casts Few /HPF Urine Granular Casts Moderate /HPF Urine Mucus Marked /LPF White Blood Count 11.9 x10^3/uL (4.0-11.0) Red Blood Count 4.42 x10^6/uL (4.30-5.70) Hemoglobin 13.4 g/dL (13.0-17.5) Hematocrit 40.1 % (39.0-53.0) Mean Corpuscular Volume 91 fL (79-100) Mean Corpuscular Hemoglobin 30 pg (25-35) Mean Corpuscular Hemoglobin Concent 33 g/dL (31-37) Red Cell Distribution Width 13.5 % (11.5-14.5) Platelet Count 426 x10^3/uL (140-400) Neutrophils (%) (Auto) 88 % (31-73) Lymphocytes (%) (Auto) 8 % (24-48) Monocytes (%) (Auto) 2 % (0-9) Eosinophils (%) (Auto) 1 % (0-3) Basophils (%) (Auto) 0 % (0-3) Neutrophils # (Auto) 10.5 x10^3/uL (1.8-7.7) Lymphocytes # (Auto) 1.0 x10^3/uL (1.0-4.8) Monocytes # (Auto) 0.3 x10^3/uL (0.0-1.1) Eosinophils # (Auto) 0.1 x10^3/uL (0.0-0.7) Basophils # (Auto) 0.0 x10^3/uL (0.0-0.2) Segmented Neutrophils % 58 % (35-66) Band Neutrophils % 32 % (0-9) Lymphocytes % 8 % (24-48) Monocytes % 2 % (0-10) Dohle Bodies Present Platelet Estimate Increased (ADEQUATE) Prothrombin Time 15.9 SEC (11.7-14.0) Prothromb Time International Ratio 1.3 (0.8-1.1) Activated Partial Thromboplast Time 30 SEC (24-38) Sodium Level 133 mmol/L (136-145) Potassium Level 3.9 mmol/L (3.5-5.1) Chloride Level 93 mmol/L (98-107) Carbon Dioxide Level 29 mmol/L (21-32) Anion Gap 11 (6-14) Blood Urea Nitrogen 30 mg/dL (8-26) Creatinine 2.1 mg/dL (0.7-1.3) Estimated GFR (Cockcroft-Gault) 31.9 BUN/Creatinine Ratio 14 (6-20) Glucose Level 164 mg/dL (70-99) Lactic Acid Level 7.2 mmol/L (0.4-2.0) 1.4 mmol/L (0.4-2.0) Calcium Level 9.1 mg/dL (8.5-10.1) Total Bilirubin 0.9 mg/dL (0.2-1.0) Aspartate Amino Transf (AST/SGOT) 31 U/L (15-37) Alanine Aminotransferase (ALT/SGPT) 35 U/L (16-63) Alkaline Phosphatase 202 U/L (46-116) Troponin I Quantitative < 0.017 ng/mL (0.000-0.055) SR-Tin-J-Type Natriuretic Peptide 343 pg/mL (0-124) Total Protein 8.5 g/dL (6.4-8.2) Albumin 2.7 g/dL (3.4-5.0) Albumin/Globulin Ratio 0.5 (1.0-1.7) Lipase 284 U/L (73-393) Glucose (Fingerstick) 128 mg/dL (70-99) Test 06/29/19 04:00 White Blood Count 17.4 x10^3/uL (4.0-11.0) Red Blood Count 3.89 x10^6/uL (4.30-5.70) Hemoglobin 11.7 g/dL (13.0-17.5) Hematocrit 35.1 % (39.0-53.0) Mean Corpuscular Volume 90 fL (79-100) Mean Corpuscular Hemoglobin 30 pg (25-35) Mean Corpuscular Hemoglobin Concent 33 g/dL (31-37) Red Cell Distribution Width 13.5 % (11.5-14.5) Platelet Count 366 x10^3/uL (140-400) Neutrophils (%) (Auto) 94 % (31-73) Lymphocytes (%) (Auto) 3 % (24-48) Monocytes (%) (Auto) 3 % (0-9) Eosinophils (%) (Auto) 0 % (0-3) Basophils (%) (Auto) 0 % (0-3) Neutrophils # (Auto) 16.3 x10^3/uL (1.8-7.7) Lymphocytes # (Auto) 0.5 x10^3/uL (1.0-4.8) Monocytes # (Auto) 0.6 x10^3/uL (0.0-1.1) Eosinophils # (Auto) 0.0 x10^3/uL (0.0-0.7) Basophils # (Auto) 0.0 x10^3/uL (0.0-0.2) Laboratory Tests Test 06/28/19 13:36 06/28/19 13:47 06/28/19 20:11 06/28/19 20:40 Urine Color Angela Urine Clarity Clear Urine pH 5.5 Urine Specific [place] 1.025 Urine Protein 100 mg/dL (NEG-TRACE) Urine Glucose (UA) Negative mg/dL (NEG) Urine Ketones (Stick) Negative mg/dL (NEG) Urine Blood Small (NEG) Urine Nitrite Negative (NEG) Urine Bilirubin Negative (NEG) Urine Urobilinogen Dipstick 1.0 mg/dL (0.2 mg/dL) Urine Leukocyte Esterase Trace (NEG) Urine RBC 3-5 /HPF (0-2) Urine WBC 1-4 /HPF (0-4) Urine Squamous Epithelial Cells Few /LPF Urine Amorphous Sediment Present /HPF Urine Bacteria Few /HPF (0-FEW) Urine Hyaline Casts Few /HPF Urine Granular Casts Moderate /HPF Urine Mucus Marked /LPF White Blood Count 11.9 x10^3/uL (4.0-11.0) Red Blood Count 4.42 x10^6/uL (4.30-5.70) Hemoglobin 13.4 g/dL (13.0-17.5) Hematocrit 40.1 % (39.0-53.0) Mean Corpuscular Volume 91 fL (79-100) Mean Corpuscular Hemoglobin 30 pg (25-35) Mean Corpuscular Hemoglobin Concent 33 g/dL (31-37) Red Cell Distribution Width 13.5 % (11.5-14.5) Platelet Count 426 x10^3/uL (140-400) Neutrophils (%) (Auto) 88 % (31-73) Lymphocytes (%) (Auto) 8 % (24-48) Monocytes (%) (Auto) 2 % (0-9) Eosinophils (%) (Auto) 1 % (0-3) Basophils (%) (Auto) 0 % (0-3) Neutrophils # (Auto) 10.5 x10^3/uL (1.8-7.7) Lymphocytes # (Auto) 1.0 x10^3/uL (1.0-4.8) Monocytes # (Auto) 0.3 x10^3/uL (0.0-1.1) Eosinophils # (Auto) 0.1 x10^3/uL (0.0-0.7) Basophils # (Auto) 0.0 x10^3/uL (0.0-0.2) Segmented Neutrophils % 58 % (35-66) Band Neutrophils % 32 % (0-9) Lymphocytes % 8 % (24-48) Monocytes % 2 % (0-10) Dohle Bodies Present Platelet Estimate Increased (ADEQUATE) Prothrombin Time 15.9 SEC (11.7-14.0) Prothromb Time International Ratio 1.3 (0.8-1.1) Activated Partial Thromboplast Time 30 SEC (24-38) Sodium Level 133 mmol/L (136-145) Potassium Level 3.9 mmol/L (3.5-5.1) Chloride Level 93 mmol/L (98-107) Carbon Dioxide Level 29 mmol/L (21-32) Anion Gap 11 (6-14) Blood Urea Nitrogen 30 mg/dL (8-26) Creatinine 2.1 mg/dL (0.7-1.3) Estimated GFR (Cockcroft-Gault) 31.9 BUN/Creatinine Ratio 14 (6-20) Glucose Level 164 mg/dL (70-99) Lactic Acid Level 7.2 mmol/L (0.4-2.0) 1.4 mmol/L (0.4-2.0) Calcium Level 9.1 mg/dL (8.5-10.1) Total Bilirubin 0.9 mg/dL (0.2-1.0) Aspartate Amino Transf (AST/SGOT) 31 U/L (15-37) Alanine Aminotransferase (ALT/SGPT) 35 U/L (16-63) Alkaline Phosphatase 202 U/L (46-116) Troponin I Quantitative < 0.017 ng/mL (0.000-0.055) FS-Vox-O-Type Natriuretic Peptide 343 pg/mL (0-124) Total Protein 8.5 g/dL (6.4-8.2) Albumin 2.7 g/dL (3.4-5.0) Albumin/Globulin Ratio 0.5 (1.0-1.7) Lipase 284 U/L (73-393) Glucose (Fingerstick) 128 mg/dL (70-99) Test 06/29/19 04:00 White Blood Count 17.4 x10^3/uL (4.0-11.0) Red Blood Count 3.89 x10^6/uL (4.30-5.70) Hemoglobin 11.7 g/dL (13.0-17.5) Hematocrit 35.1 % (39.0-53.0) Mean Corpuscular Volume 90 fL (79-100) Mean Corpuscular Hemoglobin 30 pg (25-35) Mean Corpuscular Hemoglobin Concent 33 g/dL (31-37) Red Cell Distribution Width 13.5 % (11.5-14.5) Platelet Count 366 x10^3/uL (140-400) Neutrophils (%) (Auto) 94 % (31-73) Lymphocytes (%) (Auto) 3 % (24-48) Monocytes (%) (Auto) 3 % (0-9) Eosinophils (%) (Auto) 0 % (0-3) Basophils (%) (Auto) 0 % (0-3) Neutrophils # (Auto) 16.3 x10^3/uL (1.8-7.7) Lymphocytes # (Auto) 0.5 x10^3/uL (1.0-4.8) Monocytes # (Auto) 0.6 x10^3/uL (0.0-1.1) Eosinophils # (Auto) 0.0 x10^3/uL (0.0-0.7) Basophils # (Auto) 0.0 x10^3/uL (0.0-0.2) VTE Prophylaxis Ordered VTE Prophylaxis Devices: Yes VTE Pharmacological Prophylaxi: Yes Assessment/Plan Assessment/Plan s.p perf appy LEukocytosis NO past medical ,elevated BP, no dx htn PLAN: NPO, NGT per GS Flagyl started per GS PAin control CAN ambulate CAn transfer to 4 N clonidine prn EILEEN PETTY MD Jun 29, 2019 09:32
--- NOTE | 2019-06-29 09:56 | PDOC ---
SURGICAL PROGRESS NOTE Subjective Patient doing well this morning complains of some abdominal soreness no nausea Vital Signs Vital Signs Date Time Temp Pulse Resp B/P (MAP) Pulse Ox O2 Delivery O2 Flow Rate FiO2 06/29/19 08:39 Nasal Cannula 2.0 06/29/19 07:00 97.6 84 18 113/79 (90) 98 97.6 I&O Intake and Output 06/29/19 07:00 Intake Total 4300 ml Output Total 840 ml Balance 3460 ml Intake Oral 0 ml IV Total 4300 ml Output Urine Total 550 ml Gastric Drainage Total 0 ml Drainage Total 190 ml Estimated Blood Loss 100 ml PATIENT HAS A MENON: Yes General: Alert, Oriented X3, Cooperative, mild distress Abdomen: Soft, Other (mildly distended mild incisional tenderness KATHRYN drain was serosanguineous output) Labs Laboratory Tests Test 06/28/19 13:36 06/28/19 13:47 06/28/19 20:11 06/28/19 20:40 Urine Color Angela Urine Clarity Clear Urine pH 5.5 Urine Specific [place] 1.025 Urine Protein 100 mg/dL (NEG-TRACE) Urine Glucose (UA) Negative mg/dL (NEG) Urine Ketones (Stick) Negative mg/dL (NEG) Urine Blood Small (NEG) Urine Nitrite Negative (NEG) Urine Bilirubin Negative (NEG) Urine Urobilinogen Dipstick 1.0 mg/dL (0.2 mg/dL) Urine Leukocyte Esterase Trace (NEG) Urine RBC 3-5 /HPF (0-2) Urine WBC 1-4 /HPF (0-4) Urine Squamous Epithelial Cells Few /LPF Urine Amorphous Sediment Present /HPF Urine Bacteria Few /HPF (0-FEW) Urine Hyaline Casts Few /HPF Urine Granular Casts Moderate /HPF Urine Mucus Marked /LPF White Blood Count 11.9 x10^3/uL (4.0-11.0) Red Blood Count 4.42 x10^6/uL (4.30-5.70) Hemoglobin 13.4 g/dL (13.0-17.5) Hematocrit 40.1 % (39.0-53.0) Mean Corpuscular Volume 91 fL (79-100) Mean Corpuscular Hemoglobin 30 pg (25-35) Mean Corpuscular Hemoglobin Concent 33 g/dL (31-37) Red Cell Distribution Width 13.5 % (11.5-14.5) Platelet Count 426 x10^3/uL (140-400) Neutrophils (%) (Auto) 88 % (31-73) Lymphocytes (%) (Auto) 8 % (24-48) Monocytes (%) (Auto) 2 % (0-9) Eosinophils (%) (Auto) 1 % (0-3) Basophils (%) (Auto) 0 % (0-3) Neutrophils # (Auto) 10.5 x10^3/uL (1.8-7.7) Lymphocytes # (Auto) 1.0 x10^3/uL (1.0-4.8) Monocytes # (Auto) 0.3 x10^3/uL (0.0-1.1) Eosinophils # (Auto) 0.1 x10^3/uL (0.0-0.7) Basophils # (Auto) 0.0 x10^3/uL (0.0-0.2) Segmented Neutrophils % 58 % (35-66) Band Neutrophils % 32 % (0-9) Lymphocytes % 8 % (24-48) Monocytes % 2 % (0-10) Dohle Bodies Present Platelet Estimate Increased (ADEQUATE) Prothrombin Time 15.9 SEC (11.7-14.0) Prothromb Time International Ratio 1.3 (0.8-1.1) Activated Partial Thromboplast Time 30 SEC (24-38) Sodium Level 133 mmol/L (136-145) Potassium Level 3.9 mmol/L (3.5-5.1) Chloride Level 93 mmol/L (98-107) Carbon Dioxide Level 29 mmol/L (21-32) Anion Gap 11 (6-14) Blood Urea Nitrogen 30 mg/dL (8-26) Creatinine 2.1 mg/dL (0.7-1.3) Estimated GFR (Cockcroft-Gault) 31.9 BUN/Creatinine Ratio 14 (6-20) Glucose Level 164 mg/dL (70-99) Lactic Acid Level 7.2 mmol/L (0.4-2.0) 1.4 mmol/L (0.4-2.0) Calcium Level 9.1 mg/dL (8.5-10.1) Total Bilirubin 0.9 mg/dL (0.2-1.0) Aspartate Amino Transf (AST/SGOT) 31 U/L (15-37) Alanine Aminotransferase (ALT/SGPT) 35 U/L (16-63) Alkaline Phosphatase 202 U/L (46-116) Troponin I Quantitative < 0.017 ng/mL (0.000-0.055) EU-Iqk-M-Type Natriuretic Peptide 343 pg/mL (0-124) Total Protein 8.5 g/dL (6.4-8.2) Albumin 2.7 g/dL (3.4-5.0) Albumin/Globulin Ratio 0.5 (1.0-1.7) Lipase 284 U/L (73-393) Glucose (Fingerstick) 128 mg/dL (70-99) Test 06/29/19 04:00 White Blood Count 17.4 x10^3/uL (4.0-11.0) Red Blood Count 3.89 x10^6/uL (4.30-5.70) Hemoglobin 11.7 g/dL (13.0-17.5) Hematocrit 35.1 % (39.0-53.0) Mean Corpuscular Volume 90 fL (79-100) Mean Corpuscular Hemoglobin 30 pg (25-35) Mean Corpuscular Hemoglobin Concent 33 g/dL (31-37) Red Cell Distribution Width 13.5 % (11.5-14.5) Platelet Count 366 x10^3/uL (140-400) Neutrophils (%) (Auto) 94 % (31-73) Lymphocytes (%) (Auto) 3 % (24-48) Monocytes (%) (Auto) 3 % (0-9) Eosinophils (%) (Auto) 0 % (0-3) Basophils (%) (Auto) 0 % (0-3) Neutrophils # (Auto) 16.3 x10^3/uL (1.8-7.7) Lymphocytes # (Auto) 0.5 x10^3/uL (1.0-4.8) Monocytes # (Auto) 0.6 x10^3/uL (0.0-1.1) Eosinophils # (Auto) 0.0 x10^3/uL (0.0-0.7) Basophils # (Auto) 0.0 x10^3/uL (0.0-0.2) Laboratory Tests Test 06/28/19 13:36 06/28/19 13:47 06/28/19 20:11 06/28/19 20:40 Urine Color Angela Urine Clarity Clear Urine pH 5.5 Urine Specific [place] 1.025 Urine Protein 100 mg/dL (NEG-TRACE) Urine Glucose (UA) Negative mg/dL (NEG) Urine Ketones (Stick) Negative mg/dL (NEG) Urine Blood Small (NEG) Urine Nitrite Negative (NEG) Urine Bilirubin Negative (NEG) Urine Urobilinogen Dipstick 1.0 mg/dL (0.2 mg/dL) Urine Leukocyte Esterase Trace (NEG) Urine RBC 3-5 /HPF (0-2) Urine WBC 1-4 /HPF (0-4) Urine Squamous Epithelial Cells Few /LPF Urine Amorphous Sediment Present /HPF Urine Bacteria Few /HPF (0-FEW) Urine Hyaline Casts Few /HPF Urine Granular Casts Moderate /HPF Urine Mucus Marked /LPF White Blood Count 11.9 x10^3/uL (4.0-11.0) Red Blood Count 4.42 x10^6/uL (4.30-5.70) Hemoglobin 13.4 g/dL (13.0-17.5) Hematocrit 40.1 % (39.0-53.0) Mean Corpuscular Volume 91 fL (79-100) Mean Corpuscular Hemoglobin 30 pg (25-35) Mean Corpuscular Hemoglobin Concent 33 g/dL (31-37) Red Cell Distribution Width 13.5 % (11.5-14.5) Platelet Count 426 x10^3/uL (140-400) Neutrophils (%) (Auto) 88 % (31-73) Lymphocytes (%) (Auto) 8 % (24-48) Monocytes (%) (Auto) 2 % (0-9) Eosinophils (%) (Auto) 1 % (0-3) Basophils (%) (Auto) 0 % (0-3) Neutrophils # (Auto) 10.5 x10^3/uL (1.8-7.7) Lymphocytes # (Auto) 1.0 x10^3/uL (1.0-4.8) Monocytes # (Auto) 0.3 x10^3/uL (0.0-1.1) Eosinophils # (Auto) 0.1 x10^3/uL (0.0-0.7) Basophils # (Auto) 0.0 x10^3/uL (0.0-0.2) Segmented Neutrophils % 58 % (35-66) Band Neutrophils % 32 % (0-9) Lymphocytes % 8 % (24-48) Monocytes % 2 % (0-10) Dohle Bodies Present Platelet Estimate Increased (ADEQUATE) Prothrombin Time 15.9 SEC (11.7-14.0) Prothromb Time International Ratio 1.3 (0.8-1.1) Activated Partial Thromboplast Time 30 SEC (24-38) Sodium Level 133 mmol/L (136-145) Potassium Level 3.9 mmol/L (3.5-5.1) Chloride Level 93 mmol/L (98-107) Carbon Dioxide Level 29 mmol/L (21-32) Anion Gap 11 (6-14) Blood Urea Nitrogen 30 mg/dL (8-26) Creatinine 2.1 mg/dL (0.7-1.3) Estimated GFR (Cockcroft-Gault) 31.9 BUN/Creatinine Ratio 14 (6-20) Glucose Level 164 mg/dL (70-99) Lactic Acid Level 7.2 mmol/L (0.4-2.0) 1.4 mmol/L (0.4-2.0) Calcium Level 9.1 mg/dL (8.5-10.1) Total Bilirubin 0.9 mg/dL (0.2-1.0) Aspartate Amino Transf (AST/SGOT) 31 U/L (15-37) Alanine Aminotransferase (ALT/SGPT) 35 U/L (16-63) Alkaline Phosphatase 202 U/L (46-116) Troponin I Quantitative < 0.017 ng/mL (0.000-0.055) XZ-Bup-Z-Type Natriuretic Peptide 343 pg/mL (0-124) Total Protein 8.5 g/dL (6.4-8.2) Albumin 2.7 g/dL (3.4-5.0) Albumin/Globulin Ratio 0.5 (1.0-1.7) Lipase 284 U/L (73-393) Glucose (Fingerstick) 128 mg/dL (70-99) Test 06/29/19 04:00 White Blood Count 17.4 x10^3/uL (4.0-11.0) Red Blood Count 3.89 x10^6/uL (4.30-5.70) Hemoglobin 11.7 g/dL (13.0-17.5) Hematocrit 35.1 % (39.0-53.0) Mean Corpuscular Volume 90 fL (79-100) Mean Corpuscular Hemoglobin 30 pg (25-35) Mean Corpuscular Hemoglobin Concent 33 g/dL (31-37) Red Cell Distribution Width 13.5 % (11.5-14.5) Platelet Count 366 x10^3/uL (140-400) Neutrophils (%) (Auto) 94 % (31-73) Lymphocytes (%) (Auto) 3 % (24-48) Monocytes (%) (Auto) 3 % (0-9) Eosinophils (%) (Auto) 0 % (0-3) Basophils (%) (Auto) 0 % (0-3) Neutrophils # (Auto) 16.3 x10^3/uL (1.8-7.7) Lymphocytes # (Auto) 0.5 x10^3/uL (1.0-4.8) Monocytes # (Auto) 0.6 x10^3/uL (0.0-1.1) Eosinophils # (Auto) 0.0 x10^3/uL (0.0-0.7) Basophils # (Auto) 0.0 x10^3/uL (0.0-0.2) Problem List Problems Medical Problems: (1) Acute abdomen Status: Acute (2) Acute renal insufficiency Status: Acute (3) Intra-abdominal abscess Status: Acute (4) Severe sepsis Status: Acute Assessment/Plan Status post expiratory laparotomy with cecal resection for perforation. Much improved this morning normal heart rate afebrile better urine output Continue supportive care IV antibiotics maintain NG tube and Menon catheter for fluid management. ARELI OBRIEN MD Jun 29, 2019 09:56
[2019-06-29] MEDS: KETOROLAC 15 MG/ML VIAL. IVP SCH ×3 (11:40→23:50)
[2019-06-30 03:00] VITALS: BP 130/85
[2019-06-30 05:23] LABS: BASO % 0 % (0-3); EOS % 0 % (0-3); HEMATOCRIT 32.7 % (39.0-53.0); HEMOGLOBIN 10.8 g/dL (13.0-17.5); LYMPH # 0.5 x10^3/uL (1.0-4.8); LYMPH % 3 % (24-48); MEAN CORPUSCULAR HEMOGLOBIN 30 pg (25-35); MEAN CORPUSCULAR HGB CONC 33 g/dL (31-37); MEAN CORPUSCULAR VOLUME 90 fL (79-100); MONO # 0.7 x10^3/uL (0.0-1.1); MONO % 4 % (0-9); NEUT # 17.6 x10^3/uL (1.8-7.7); NEUT % 94 % (31-73); PLATELET COUNT 359 x10^3/uL (140-400); RED BLOOD COUNT 3.63 x10^6/uL (4.30-5.70); RED CELL DISTRIBUTION WIDTH 13.5 % (11.5-14.5); WHITE BLOOD COUNT 18.8 x10^3/uL (4.0-11.0)
[2019-06-30] MEDS: KETOROLAC 15 MG/ML VIAL. IVP SCH ×3 (05:46→18:00)
[2019-06-30 06:13] LABS: CALCIUM 8.2 mg/dL (8.5-10.1); CREATININE 1.4 mg/dL (0.7-1.3); GFR 50.9; POTASSIUM 4.8 mmol/L (3.5-5.1)
--- NOTE | 2019-06-30 06:55 | EKG ---
[facility] [address] [place] [address] Test Date: 2019-06-28 Test Time: 14:01:00 Pat Name: JUSTUS JAMESDepartment: Room: 442 Gender: M [employer] Consultant: : [id number] Requested By: FUAD GARCIA Order Number: [id number] Reading MD: Jeff Garg MD Measurements Intervals [place] Rate: 108 P: -10 DE: 136 QRS: 4 QRSD: 82 T: 15 QT: 296 QTc: 400 Interpretive Statements SINUS TACHYCARDIA NON-SPECIFIC ST/T CHANGES Electronically Signed On 07-01-2019 14:14:22 [employer] by Jeff Garg MD
[2019-06-30 07:00] VITALS: BP 155/72
--- NOTE | 2019-06-30 08:36 | PDOC ---
SONIA PEACE OCCUPATIONAL HEALTH NURSE SUPERVISOR 06/30/19 0836: SURGICAL PROGRESS NOTE Subjective up to chair pain about a 6 no flatus some bloating Vital Signs Vital Signs Date Time Temp Pulse Resp B/P (MAP) Pulse Ox O2 Delivery O2 Flow Rate FiO2 06/30/19 07:00 97.8 77 16 155/72 (99) 94 Room Air 97.8 06/29/19 15:00 2.5 I&O Intake and Output 06/30/19 07:00 Intake Total 2420 ml Output Total 1900 ml Balance 520 ml Intake Oral 120 ml IV Total 2300 ml Output Urine Total 1750 ml Gastric Drainage Total 120 ml Drainage Total 30 ml PATIENT HAS A SHEPARD: Yes (dc today) General: Alert, Oriented X3, Cooperative HEENT: Other (ng in place) Abdomen: Soft, Other (distended, drain serosang, dressing dry) Labs Laboratory Tests Test 06/28/19 13:36 06/28/19 13:47 06/28/19 20:11 06/28/19 20:40 Urine Color Angela Urine Clarity Clear Urine pH 5.5 Urine Specific [place] 1.025 Urine Protein 100 mg/dL (NEG-TRACE) Urine Glucose (UA) Negative mg/dL (NEG) Urine Ketones (Stick) Negative mg/dL (NEG) Urine Blood Small (NEG) Urine Nitrite Negative (NEG) Urine Bilirubin Negative (NEG) Urine Urobilinogen Dipstick 1.0 mg/dL (0.2 mg/dL) Urine Leukocyte Esterase Trace (NEG) Urine RBC 3-5 /HPF (0-2) Urine WBC 1-4 /HPF (0-4) Urine Squamous Epithelial Cells Few /LPF Urine Amorphous Sediment Present /HPF Urine Bacteria Few /HPF (0-FEW) Urine Hyaline Casts Few /HPF Urine Granular Casts Moderate /HPF Urine Mucus Marked /LPF White Blood Count 11.9 x10^3/uL (4.0-11.0) Red Blood Count 4.42 x10^6/uL (4.30-5.70) Hemoglobin 13.4 g/dL (13.0-17.5) Hematocrit 40.1 % (39.0-53.0) Mean Corpuscular Volume 91 fL (79-100) Mean Corpuscular Hemoglobin 30 pg (25-35) Mean Corpuscular Hemoglobin Concent 33 g/dL (31-37) Red Cell Distribution Width 13.5 % (11.5-14.5) Platelet Count 426 x10^3/uL (140-400) Neutrophils (%) (Auto) 88 % (31-73) Lymphocytes (%) (Auto) 8 % (24-48) Monocytes (%) (Auto) 2 % (0-9) Eosinophils (%) (Auto) 1 % (0-3) Basophils (%) (Auto) 0 % (0-3) Neutrophils # (Auto) 10.5 x10^3/uL (1.8-7.7) Lymphocytes # (Auto) 1.0 x10^3/uL (1.0-4.8) Monocytes # (Auto) 0.3 x10^3/uL (0.0-1.1) Eosinophils # (Auto) 0.1 x10^3/uL (0.0-0.7) Basophils # (Auto) 0.0 x10^3/uL (0.0-0.2) Segmented Neutrophils % 58 % (35-66) Band Neutrophils % 32 % (0-9) Lymphocytes % 8 % (24-48) Monocytes % 2 % (0-10) Dohle Bodies Present Platelet Estimate Increased (ADEQUATE) Prothrombin Time 15.9 SEC (11.7-14.0) Prothromb Time International Ratio 1.3 (0.8-1.1) Activated Partial Thromboplast Time 30 SEC (24-38) Sodium Level 133 mmol/L (136-145) Potassium Level 3.9 mmol/L (3.5-5.1) Chloride Level 93 mmol/L (98-107) Carbon Dioxide Level 29 mmol/L (21-32) Anion Gap 11 (6-14) Blood Urea Nitrogen 30 mg/dL (8-26) Creatinine 2.1 mg/dL (0.7-1.3) Estimated GFR (Cockcroft-Gault) 31.9 BUN/Creatinine Ratio 14 (6-20) Glucose Level 164 mg/dL (70-99) Lactic Acid Level 7.2 mmol/L (0.4-2.0) 1.4 mmol/L (0.4-2.0) Calcium Level 9.1 mg/dL (8.5-10.1) Total Bilirubin 0.9 mg/dL (0.2-1.0) Aspartate Amino Transf (AST/SGOT) 31 U/L (15-37) Alanine Aminotransferase (ALT/SGPT) 35 U/L (16-63) Alkaline Phosphatase 202 U/L (46-116) Troponin I Quantitative < 0.017 ng/mL (0.000-0.055) BI-Dxm-V-Type Natriuretic Peptide 343 pg/mL (0-124) Total Protein 8.5 g/dL (6.4-8.2) Albumin 2.7 g/dL (3.4-5.0) Albumin/Globulin Ratio 0.5 (1.0-1.7) Lipase 284 U/L (73-393) Glucose (Fingerstick) 128 mg/dL (70-99) Test 06/29/19 04:00 06/30/19 04:50 White Blood Count 17.4 x10^3/uL (4.0-11.0) 18.8 x10^3/uL (4.0-11.0) Red Blood Count 3.89 x10^6/uL (4.30-5.70) 3.63 x10^6/uL (4.30-5.70) Hemoglobin 11.7 g/dL (13.0-17.5) 10.8 g/dL (13.0-17.5) Hematocrit 35.1 % (39.0-53.0) 32.7 % (39.0-53.0) Mean Corpuscular Volume 90 fL (79-100) 90 fL (79-100) Mean Corpuscular Hemoglobin 30 pg (25-35) 30 pg (25-35) Mean Corpuscular Hemoglobin Concent 33 g/dL (31-37) 33 g/dL (31-37) Red Cell Distribution Width 13.5 % (11.5-14.5) 13.5 % (11.5-14.5) Platelet Count 366 x10^3/uL (140-400) 359 x10^3/uL (140-400) Neutrophils (%) (Auto) 94 % (31-73) 94 % (31-73) Lymphocytes (%) (Auto) 3 % (24-48) 3 % (24-48) Monocytes (%) (Auto) 3 % (0-9) 4 % (0-9) Eosinophils (%) (Auto) 0 % (0-3) 0 % (0-3) Basophils (%) (Auto) 0 % (0-3) 0 % (0-3) Neutrophils # (Auto) 16.3 x10^3/uL (1.8-7.7) 17.6 x10^3/uL (1.8-7.7) Lymphocytes # (Auto) 0.5 x10^3/uL (1.0-4.8) 0.5 x10^3/uL (1.0-4.8) Monocytes # (Auto) 0.6 x10^3/uL (0.0-1.1) 0.7 x10^3/uL (0.0-1.1) Eosinophils # (Auto) 0.0 x10^3/uL (0.0-0.7) 0.0 x10^3/uL (0.0-0.7) Basophils # (Auto) 0.0 x10^3/uL (0.0-0.2) 0.0 x10^3/uL (0.0-0.2) Sodium Level 133 mmol/L (136-145) Potassium Level 4.8 mmol/L (3.5-5.1) Chloride Level 104 mmol/L (98-107) Carbon Dioxide Level 24 mmol/L (21-32) Anion Gap 5 (6-14) Blood Urea Nitrogen 36 mg/dL (8-26) Creatinine 1.4 mg/dL (0.7-1.3) Estimated GFR (Cockcroft-Gault) 50.9 Glucose Level 117 mg/dL (70-99) Calcium Level 8.2 mg/dL (8.5-10.1) Laboratory Tests Test 06/30/19 04:50 White Blood Count 18.8 x10^3/uL (4.0-11.0) Red Blood Count 3.63 x10^6/uL (4.30-5.70) Hemoglobin 10.8 g/dL (13.0-17.5) Hematocrit 32.7 % (39.0-53.0) Mean Corpuscular Volume 90 fL (79-100) Mean Corpuscular Hemoglobin 30 pg (25-35) Mean Corpuscular Hemoglobin Concent 33 g/dL (31-37) Red Cell Distribution Width 13.5 % (11.5-14.5) Platelet Count 359 x10^3/uL (140-400) Neutrophils (%) (Auto) 94 % (31-73) Lymphocytes (%) (Auto) 3 % (24-48) Monocytes (%) (Auto) 4 % (0-9) Eosinophils (%) (Auto) 0 % (0-3) Basophils (%) (Auto) 0 % (0-3) Neutrophils # (Auto) 17.6 x10^3/uL (1.8-7.7) Lymphocytes # (Auto) 0.5 x10^3/uL (1.0-4.8) Monocytes # (Auto) 0.7 x10^3/uL (0.0-1.1) Eosinophils # (Auto) 0.0 x10^3/uL (0.0-0.7) Basophils # (Auto) 0.0 x10^3/uL (0.0-0.2) Sodium Level 133 mmol/L (136-145) Potassium Level 4.8 mmol/L (3.5-5.1) Chloride Level 104 mmol/L (98-107) Carbon Dioxide Level 24 mmol/L (21-32) Anion Gap 5 (6-14) Blood Urea Nitrogen 36 mg/dL (8-26) Creatinine 1.4 mg/dL (0.7-1.3) Estimated GFR (Cockcroft-Gault) 50.9 Glucose Level 117 mg/dL (70-99) Calcium Level 8.2 mg/dL (8.5-10.1) Problem List Problems Medical Problems: (1) Acute abdomen Status: Acute (2) Acute renal insufficiency Status: Acute (3) Intra-abdominal abscess Status: Acute (4) Severe sepsis Status: Acute Assessment/Plan POD# 2 xlap, cecal resection dc shepard--cr improved, good UOP add lovenox continue NG--await improved bowel function ARELI OBRIEN MD 06/30/19 1017: SURGICAL PROGRESS NOTE Assessment/Plan Patient doing well. Agree with D/C shepard and NGT. Would not adv diet at this time. Agree with Benita's assessment and plan. SONIA PEACE APRN Jun 30, 2019 08:36 ARELI OBRIEN MD Jun 30, 2019 10:17
[2019-06-30] MEDS: MORPHINE SULFATE 2 MG/ML VIAL. IV PRN (08:49)
[2019-06-30 11:00] VITALS: BP 127/75
[2019-06-30] MEDS: AMINO AC 3%/ELECTROLYTE/GLYCER 1,000 ML IV SCH (11:25)
--- NOTE | 2019-06-30 11:58 | PDOC ---
[employer] PROGRESS NOTE Chief Complaint Chief Complaint Post-op day 2 laparotomy for perforated appendix and cecum Sepsis, resolving Abd pain History of Present Illness History of Present Illness 06/30/19 Pt seen and examined Pt was standing up and appeared in good spirits DW pt and pt's regarding their care DW RN Reviewed pt's chart Vitals/I&O Vitals/I&O: Vital Signs Date Time Temp Pulse Resp B/P (MAP) Pulse Ox O2 Delivery O2 Flow Rate FiO2 06/30/19 09:19 Room Air 06/30/19 07:00 97.8 77 16 155/72 (99) 94 97.8 06/29/19 15:00 2.5 I & O 06/29/19 06/29/19 06/30/19 15:00 23:00 07:00 Intake Total 2420 ml Output Total 300 ml 520 ml 1080 ml Balance -300 ml -520 ml 1340 ml Physical Exam General: Alert, Oriented X3, Cooperative, Other (NG tube on LIS. Robles to bedside drainage) Heart: Regular rate, Normal S1, Normal S2, No murmurs Lungs: Clear Abdomen: Soft, Other (distended. KATHRYN drain to RLQ. Clean, dry, intact ventral dressings) Extremities: No clubbing, No cyanosis, No edema, Normal pulses, No tenderness/swelling Skin: No rashes, No breakdown, No significant lesion Labs Labs: Laboratory Tests Test 06/30/19 04:50 White Blood Count 18.8 x10^3/uL (4.0-11.0) Red Blood Count 3.63 x10^6/uL (4.30-5.70) Hemoglobin 10.8 g/dL (13.0-17.5) Hematocrit 32.7 % (39.0-53.0) Mean Corpuscular Volume 90 fL (79-100) Mean Corpuscular Hemoglobin 30 pg (25-35) Mean Corpuscular Hemoglobin Concent 33 g/dL (31-37) Red Cell Distribution Width 13.5 % (11.5-14.5) Platelet Count 359 x10^3/uL (140-400) Neutrophils (%) (Auto) 94 % (31-73) Lymphocytes (%) (Auto) 3 % (24-48) Monocytes (%) (Auto) 4 % (0-9) Eosinophils (%) (Auto) 0 % (0-3) Basophils (%) (Auto) 0 % (0-3) Neutrophils # (Auto) 17.6 x10^3/uL (1.8-7.7) Lymphocytes # (Auto) 0.5 x10^3/uL (1.0-4.8) Monocytes # (Auto) 0.7 x10^3/uL (0.0-1.1) Eosinophils # (Auto) 0.0 x10^3/uL (0.0-0.7) Basophils # (Auto) 0.0 x10^3/uL (0.0-0.2) Sodium Level 133 mmol/L (136-145) Potassium Level 4.8 mmol/L (3.5-5.1) Chloride Level 104 mmol/L (98-107) Carbon Dioxide Level 24 mmol/L (21-32) Anion Gap 5 (6-14) Blood Urea Nitrogen 36 mg/dL (8-26) Creatinine 1.4 mg/dL (0.7-1.3) Estimated GFR (Cockcroft-Gault) 50.9 Glucose Level 117 mg/dL (70-99) Calcium Level 8.2 mg/dL (8.5-10.1) Review of Systems Review of Systems: Pt denies any headache Pt denies any CP Assessment and Plan Assessmemt and Plan Problems Medical Problems: (1) Acute abdomen Status: Acute (2) Acute renal insufficiency Status: Acute (3) Intra-abdominal abscess Status: Acute (4) Severe sepsis Status: Acute Assessment Post-op day 2 laparotomy for perforated appendix and cecum Sepsis, resolving Abd pain Plan IV Abx NG tube on LIS Robles to bedside drain Full code Labs Home meds PRN narcotics and zofran PT/OT DVT Prophylaxis Procalamine 75/hr PPN Appreciate subspecialist input Comment Review of Relevant I have reviewed the following items butch (where applicable) has been applied. Medications: Current Medications Medications (Trade) Dose Ordered Sig/Jamison Route PRN Reason Start Time Stop Time Status Last Admin Dose Admin Amino Acids/ Glycerin/ Electrolytes 1,000 ml @ 80 mls/hr [id number] IV 06/30/19 11:00 06/30/19 11:25 FUAD GARCIA III DO Jun 30, 2019 11:58
[2019-06-30] MEDS: ENOXAPARIN 40 MG/0.4 ML SYRINGE. SQ SCH (12:43)
--- NOTE | 2019-06-30 12:47 | NUR ---
SS following for discharge planning. SS reviewed pt chart. Pt is from home with spouse and is currently on room air. PT/OT ordered and recommended home at discharge. SS will continue to follow for discharge planning.
[2019-06-30 15:00] VITALS: BP 147/78
[2019-06-30 19:42] VITALS: BP 160/89
[2019-06-30 22:27] VITALS: BP 137/81
[2019-07-01] MEDS: KETOROLAC 15 MG/ML VIAL. IVP SCH ×4 (00:26→17:21)
[2019-07-01] MEDS: AMINO AC 3%/ELECTROLYTE/GLYCER 1,000 ML IV SCH ×2 (00:29→11:43)
[2019-07-01 03:30] VITALS: BP 162/90
[2019-07-01 04:50] LABS: BASO % 0 % (0-3); EOS % 0 % (0-3); HEMATOCRIT 33.2 % (39.0-53.0); LYMPH # 0.7 x10^3/uL (1.0-4.8); LYMPH % 4 % (24-48); MEAN CORPUSCULAR HEMOGLOBIN 30 pg (25-35); MEAN CORPUSCULAR HGB CONC 33 g/dL (31-37); MEAN CORPUSCULAR VOLUME 90 fL (79-100); MONO # 0.7 x10^3/uL (0.0-1.1); MONO % 4 % (0-9); NEUT # 16.4 x10^3/uL (1.8-7.7); NEUT % 92 % (31-73); PLATELET COUNT 392 x10^3/uL (140-400); RED BLOOD COUNT 3.69 x10^6/uL (4.30-5.70); RED CELL DISTRIBUTION WIDTH 13.8 % (11.5-14.5)
[2019-07-01 04:59] LABS: CALCIUM 8.2 mg/dL (8.5-10.1); CREATININE 1.2 mg/dL (0.7-1.3); GFR 60.8; POTASSIUM 4.7 mmol/L (3.5-5.1)
[2019-07-01 07:00] VITALS: BP 158/93
[2019-07-01] MEDS: oxyCODONE/APAP 5/325 1 TAB TABLET PO PRN ×2 (09:17→23:32)
--- NOTE | 2019-07-01 09:21 | PDOC ---
SURGICAL PROGRESS NOTE Subjective flatus x 3 no nausea pain managed Vital Signs Vital Signs Date Time Temp Pulse Resp B/P (MAP) Pulse Ox O2 Delivery O2 Flow Rate FiO2 07/01/19 09:17 Room Air 07/01/19 07:00 98.1 74 16 158/93 (114) 97 98.1 I&O Intake and Output 07/01/19 07:00 Output Total 475 ml Balance -475 ml Output Urine Total 400 ml Drainage Total 75 ml General: Alert, Oriented X3, Cooperative Abdomen: Soft, Other (mildly distended, dressing dry, KATHRYN serosang ) Labs Laboratory Tests Test 06/30/19 04:50 07/01/19 04:00 White Blood Count 18.8 x10^3/uL (4.0-11.0) 18.0 x10^3/uL (4.0-11.0) Red Blood Count 3.63 x10^6/uL (4.30-5.70) 3.69 x10^6/uL (4.30-5.70) Hemoglobin 10.8 g/dL (13.0-17.5) 11.0 g/dL (13.0-17.5) Hematocrit 32.7 % (39.0-53.0) 33.2 % (39.0-53.0) Mean Corpuscular Volume 90 fL (79-100) 90 fL (79-100) Mean Corpuscular Hemoglobin 30 pg (25-35) 30 pg (25-35) Mean Corpuscular Hemoglobin Concent 33 g/dL (31-37) 33 g/dL (31-37) Red Cell Distribution Width 13.5 % (11.5-14.5) 13.8 % (11.5-14.5) Platelet Count 359 x10^3/uL (140-400) 392 x10^3/uL (140-400) Neutrophils (%) (Auto) 94 % (31-73) 92 % (31-73) Lymphocytes (%) (Auto) 3 % (24-48) 4 % (24-48) Monocytes (%) (Auto) 4 % (0-9) 4 % (0-9) Eosinophils (%) (Auto) 0 % (0-3) 0 % (0-3) Basophils (%) (Auto) 0 % (0-3) 0 % (0-3) Neutrophils # (Auto) 17.6 x10^3/uL (1.8-7.7) 16.4 x10^3/uL (1.8-7.7) Lymphocytes # (Auto) 0.5 x10^3/uL (1.0-4.8) 0.7 x10^3/uL (1.0-4.8) Monocytes # (Auto) 0.7 x10^3/uL (0.0-1.1) 0.7 x10^3/uL (0.0-1.1) Eosinophils # (Auto) 0.0 x10^3/uL (0.0-0.7) 0.0 x10^3/uL (0.0-0.7) Basophils # (Auto) 0.0 x10^3/uL (0.0-0.2) 0.0 x10^3/uL (0.0-0.2) Sodium Level 133 mmol/L (136-145) 137 mmol/L (136-145) Potassium Level 4.8 mmol/L (3.5-5.1) 4.7 mmol/L (3.5-5.1) Chloride Level 104 mmol/L (98-107) 104 mmol/L (98-107) Carbon Dioxide Level 24 mmol/L (21-32) 27 mmol/L (21-32) Anion Gap 5 (6-14) 6 (6-14) Blood Urea Nitrogen 36 mg/dL (8-26) 40 mg/dL (8-26) Creatinine 1.4 mg/dL (0.7-1.3) 1.2 mg/dL (0.7-1.3) Estimated GFR (Cockcroft-Gault) 50.9 60.8 Glucose Level 117 mg/dL (70-99) 99 mg/dL (70-99) Calcium Level 8.2 mg/dL (8.5-10.1) 8.2 mg/dL (8.5-10.1) Laboratory Tests Test 07/01/19 04:00 White Blood Count 18.0 x10^3/uL (4.0-11.0) Red Blood Count 3.69 x10^6/uL (4.30-5.70) Hemoglobin 11.0 g/dL (13.0-17.5) Hematocrit 33.2 % (39.0-53.0) Mean Corpuscular Volume 90 fL (79-100) Mean Corpuscular Hemoglobin 30 pg (25-35) Mean Corpuscular Hemoglobin Concent 33 g/dL (31-37) Red Cell Distribution Width 13.8 % (11.5-14.5) Platelet Count 392 x10^3/uL (140-400) Neutrophils (%) (Auto) 92 % (31-73) Lymphocytes (%) (Auto) 4 % (24-48) Monocytes (%) (Auto) 4 % (0-9) Eosinophils (%) (Auto) 0 % (0-3) Basophils (%) (Auto) 0 % (0-3) Neutrophils # (Auto) 16.4 x10^3/uL (1.8-7.7) Lymphocytes # (Auto) 0.7 x10^3/uL (1.0-4.8) Monocytes # (Auto) 0.7 x10^3/uL (0.0-1.1) Eosinophils # (Auto) 0.0 x10^3/uL (0.0-0.7) Basophils # (Auto) 0.0 x10^3/uL (0.0-0.2) Sodium Level 137 mmol/L (136-145) Potassium Level 4.7 mmol/L (3.5-5.1) Chloride Level 104 mmol/L (98-107) Carbon Dioxide Level 27 mmol/L (21-32) Anion Gap 6 (6-14) Blood Urea Nitrogen 40 mg/dL (8-26) Creatinine 1.2 mg/dL (0.7-1.3) Estimated GFR (Cockcroft-Gault) 60.8 Glucose Level 99 mg/dL (70-99) Calcium Level 8.2 mg/dL (8.5-10.1) Problem List Problems Medical Problems: (1) Acute abdomen Status: Acute (2) Acute renal insufficiency Status: Acute (3) Intra-abdominal abscess Status: Acute (4) Severe sepsis Status: Acute Assessment/Plan s/p xlap sips of clears, await improved bowel function ambulate SONIA PEACE APRN Jul 01, 2019 09:21
[2019-07-01 11:00] VITALS: BP 134/84
[2019-07-01] MEDS: ENOXAPARIN 40 MG/0.4 ML SYRINGE. SQ SCH (11:46)
--- NOTE | 2019-07-01 12:00 | PDOC ---
PROGRESS NOTES Chief Complaint Chief Complaint Post-op day 2 laparotomy for perforated appendix and cecum Sepsis, resolving Abd pain History of Present Illness History of Present Illness walking well with PT has flatus will try one jello, if OK with get clear tray DW pt and pt's regarding their care DW RN Reviewed pt's chart Vitals Vitals Vital Signs Date Time Temp Pulse Resp B/P (MAP) Pulse Ox O2 Delivery O2 Flow Rate FiO2 07/01/19 10:20 Room Air 07/01/19 07:00 98.1 74 16 158/93 (114) 97 98.1 Physical Exam General: Alert, Oriented X3, Cooperative Heart: Regular rate, Normal S1, Normal S2, No murmurs Lungs: Clear Abdomen: Soft, Other (mildly distended, dressing dry, KATHRYN serosang ) Extremities: No clubbing, No cyanosis, No edema, Normal pulses, No tenderness/swelling Skin: No rashes, No breakdown, No significant lesion Labs LABS Laboratory Tests Test 07/01/19 04:00 White Blood Count 18.0 x10^3/uL (4.0-11.0) Red Blood Count 3.69 x10^6/uL (4.30-5.70) Hemoglobin 11.0 g/dL (13.0-17.5) Hematocrit 33.2 % (39.0-53.0) Mean Corpuscular Volume 90 fL (79-100) Mean Corpuscular Hemoglobin 30 pg (25-35) Mean Corpuscular Hemoglobin Concent 33 g/dL (31-37) Red Cell Distribution Width 13.8 % (11.5-14.5) Platelet Count 392 x10^3/uL (140-400) Neutrophils (%) (Auto) 92 % (31-73) Lymphocytes (%) (Auto) 4 % (24-48) Monocytes (%) (Auto) 4 % (0-9) Eosinophils (%) (Auto) 0 % (0-3) Basophils (%) (Auto) 0 % (0-3) Neutrophils # (Auto) 16.4 x10^3/uL (1.8-7.7) Lymphocytes # (Auto) 0.7 x10^3/uL (1.0-4.8) Monocytes # (Auto) 0.7 x10^3/uL (0.0-1.1) Eosinophils # (Auto) 0.0 x10^3/uL (0.0-0.7) Basophils # (Auto) 0.0 x10^3/uL (0.0-0.2) Sodium Level 137 mmol/L (136-145) Potassium Level 4.7 mmol/L (3.5-5.1) Chloride Level 104 mmol/L (98-107) Carbon Dioxide Level 27 mmol/L (21-32) Anion Gap 6 (6-14) Blood Urea Nitrogen 40 mg/dL (8-26) Creatinine 1.2 mg/dL (0.7-1.3) Estimated GFR (Cockcroft-Gault) 60.8 Glucose Level 99 mg/dL (70-99) Calcium Level 8.2 mg/dL (8.5-10.1) Review of Systems Review of Systems pain OK, slpet OK Assessment and Plan Assessmemt and Plan Problems Medical Problems: (1) Acute abdomen Status: Acute (2) Acute renal insufficiency Status: Acute (3) Intra-abdominal abscess Status: Acute (4) Severe sepsis Status: Acute Comment Review of Relevant I have reviewed the following items butch (where applicable) has been applied. Labs Laboratory Tests Test 06/30/19 04:50 07/01/19 04:00 White Blood Count 18.8 x10^3/uL (4.0-11.0) 18.0 x10^3/uL (4.0-11.0) Red Blood Count 3.63 x10^6/uL (4.30-5.70) 3.69 x10^6/uL (4.30-5.70) Hemoglobin 10.8 g/dL (13.0-17.5) 11.0 g/dL (13.0-17.5) Hematocrit 32.7 % (39.0-53.0) 33.2 % (39.0-53.0) Mean Corpuscular Volume 90 fL (79-100) 90 fL (79-100) Mean Corpuscular Hemoglobin 30 pg (25-35) 30 pg (25-35) Mean Corpuscular Hemoglobin Concent 33 g/dL (31-37) 33 g/dL (31-37) Red Cell Distribution Width 13.5 % (11.5-14.5) 13.8 % (11.5-14.5) Platelet Count 359 x10^3/uL (140-400) 392 x10^3/uL (140-400) Neutrophils (%) (Auto) 94 % (31-73) 92 % (31-73) Lymphocytes (%) (Auto) 3 % (24-48) 4 % (24-48) Monocytes (%) (Auto) 4 % (0-9) 4 % (0-9) Eosinophils (%) (Auto) 0 % (0-3) 0 % (0-3) Basophils (%) (Auto) 0 % (0-3) 0 % (0-3) Neutrophils # (Auto) 17.6 x10^3/uL (1.8-7.7) 16.4 x10^3/uL (1.8-7.7) Lymphocytes # (Auto) 0.5 x10^3/uL (1.0-4.8) 0.7 x10^3/uL (1.0-4.8) Monocytes # (Auto) 0.7 x10^3/uL (0.0-1.1) 0.7 x10^3/uL (0.0-1.1) Eosinophils # (Auto) 0.0 x10^3/uL (0.0-0.7) 0.0 x10^3/uL (0.0-0.7) Basophils # (Auto) 0.0 x10^3/uL (0.0-0.2) 0.0 x10^3/uL (0.0-0.2) Sodium Level 133 mmol/L (136-145) 137 mmol/L (136-145) Potassium Level 4.8 mmol/L (3.5-5.1) 4.7 mmol/L (3.5-5.1) Chloride Level 104 mmol/L (98-107) 104 mmol/L (98-107) Carbon Dioxide Level 24 mmol/L (21-32) 27 mmol/L (21-32) Anion Gap 5 (6-14) 6 (6-14) Blood Urea Nitrogen 36 mg/dL (8-26) 40 mg/dL (8-26) Creatinine 1.4 mg/dL (0.7-1.3) 1.2 mg/dL (0.7-1.3) Estimated GFR (Cockcroft-Gault) 50.9 60.8 Glucose Level 117 mg/dL (70-99) 99 mg/dL (70-99) Calcium Level 8.2 mg/dL (8.5-10.1) 8.2 mg/dL (8.5-10.1) Laboratory Tests Test 07/01/19 04:00 White Blood Count 18.0 x10^3/uL (4.0-11.0) Red Blood Count 3.69 x10^6/uL (4.30-5.70) Hemoglobin 11.0 g/dL (13.0-17.5) Hematocrit 33.2 % (39.0-53.0) Mean Corpuscular Volume 90 fL (79-100) Mean Corpuscular Hemoglobin 30 pg (25-35) Mean Corpuscular Hemoglobin Concent 33 g/dL (31-37) Red Cell Distribution Width 13.8 % (11.5-14.5) Platelet Count 392 x10^3/uL (140-400) Neutrophils (%) (Auto) 92 % (31-73) Lymphocytes (%) (Auto) 4 % (24-48) Monocytes (%) (Auto) 4 % (0-9) Eosinophils (%) (Auto) 0 % (0-3) Basophils (%) (Auto) 0 % (0-3) Neutrophils # (Auto) 16.4 x10^3/uL (1.8-7.7) Lymphocytes # (Auto) 0.7 x10^3/uL (1.0-4.8) Monocytes # (Auto) 0.7 x10^3/uL (0.0-1.1) Eosinophils # (Auto) 0.0 x10^3/uL (0.0-0.7) Basophils # (Auto) 0.0 x10^3/uL (0.0-0.2) Sodium Level 137 mmol/L (136-145) Potassium Level 4.7 mmol/L (3.5-5.1) Chloride Level 104 mmol/L (98-107) Carbon Dioxide Level 27 mmol/L (21-32) Anion Gap 6 (6-14) Blood Urea Nitrogen 40 mg/dL (8-26) Creatinine 1.2 mg/dL (0.7-1.3) Estimated GFR (Cockcroft-Gault) 60.8 Glucose Level 99 mg/dL (70-99) Calcium Level 8.2 mg/dL (8.5-10.1) Microbiology 06/28/19 Blood Culture - Preliminary, Resulted NO GROWTH AFTER 2 DAYS Medications Current Medications Sodium Chloride 1,000 ml @ 1,000 mls/hr 1X ONCE IV Last administered on 06/28/19at 14:59; Start 06/28/19 at 15:00; Stop 06/28/19 at 15:59; Status DC Fentanyl Citrate (Fentanyl 2ml Vial) 50 mcg 1X ONCE IVP Last administered on 06/28/19at 15:00; Start 06/28/19 at 15:00; Stop 06/28/19 at 15:01; Status DC Ondansetron HCl (Zofran) 4 mg 1X ONCE IV Last administered on 06/28/19at 14:59; Start 06/28/19 at 15:00; Stop 06/28/19 at 15:01; Status DC Sodium Chloride 1,000 ml @ 1,000 mls/hr 1X ONCE IV Last administered on 06/28/19at 16:32; Start 06/28/19 at 15:15; Stop 06/28/19 at 16:14; Status DC Piperacillin Sod/ Tazobactam Sod 3.375 gm/Sodium Chloride 50 ml @ 100 mls/hr 1X ONCE IV Last administered on 06/28/19at 15:20; Start 06/28/19 at 15:15; Stop 06/28/19 at 15:44; Status DC Vancomycin HCl 250 ml @ 250 mls/hr 1X ONCE IV Last administered on 06/28/19at 16:29; Start 06/28/19 at 15:15; Stop 06/28/19 at 16:14; Status DC Iohexol (Omnipaque 240 Mg/ml) 50 ml 1X ONCE IV Last administered on 06/28/19at 15:20; Start 06/28/19 at 15:45; Stop 06/28/19 at 15:46; Status DC Info (CONTRAST GIVEN -- Rx MONITORING) 1 each PRN DAILY PRN MC SEE COMMENTS; Start 06/28/19 at 15:45; Stop 06/30/19 at 15:44; Status DC Sodium Chloride 1,000 ml @ 150 mls/hr Q6H40M IV Last administered on 06/29/19at 14:48; Start 06/28/19 at 16:30; Stop 06/29/19 at 16:29; Status DC Propofol 20 ml @ As Directed STK-MED ONCE IV ; Start 06/28/19 at 16:46; Stop 06/28/19 at 16:46; Status DC Lidocaine HCl (Lidocaine Pf 2% Vial) 5 ml STK-MED ONCE .ROUTE ; Start 06/28/19 at 16:46; Stop 06/28/19 at 16:46; Status DC Fentanyl Citrate (Fentanyl 2ml Vial) 100 mcg STK-MED ONCE .ROUTE ; Start 06/28/19 at 16:46; Stop 06/28/19 at 16:46; Status DC Succinylcholine Chloride (Anectine) 200 mg STK-MED ONCE .ROUTE ; Start 06/28/19 at 16:46; Stop 06/28/19 at 16:46; Status DC Rocuronium Locke (Zemuron) 50 mg STK-MED ONCE .ROUTE ; Start 06/28/19 at 16:46; Stop 06/28/19 at 16:46; Status DC Fentanyl Citrate (Fentanyl 2ml Vial) 50 mcg 1X ONCE IVP Last administered on 06/28/19at 16:49; Start 06/28/19 at 17:00; Stop 06/28/19 at 17:01; Status DC Bupivacaine HCl/ Epinephrine Bitart (Sensorcaine-Epi 0.25%-1:067370 Mpf) 30 ml 1X ONCE INJ Last administered on 06/28/19at 17:56; Start 06/28/19 at 18:00; Stop 06/28/19 at 18:01; Status DC Ondansetron HCl (Zofran) 4 mg STK-MED ONCE .ROUTE ; Start 06/28/19 at 17:52; Stop 06/28/19 at 17:53; Status DC Phenylephrine HCl (PHENYLEPHRINE in 0.9% NACL PF) 1 mg STK-MED ONCE IV ; Start 06/28/19 at 17:52; Stop 06/28/19 at 17:53; Status DC Dexamethasone Sodium Phosphate (Decadron) 4 mg STK-MED ONCE .ROUTE ; Start 06/28/19 at 17:52; Stop 06/28/19 at 17:53; Status DC Neostigmine Methylsulfate (Neostigmine Methylsulfate) 5 mg STK-MED ONCE .ROUTE ; Start 06/28/19 at 18:04; Stop 06/28/19 at 18:05; Status DC Glycopyrrolate (Robinul) 1 mg STK-MED ONCE .ROUTE ; Start 06/28/19 at 18:05; Stop 06/28/19 at 18:05; Status DC Ondansetron HCl (Zofran) 4 mg PRN Q6HRS PRN IV NAUSEA/VOMITING Last administered on 06/28/19at 22:40; Start 06/28/19 at 18:30; Stop 06/29/19 at 18:29; Status DC Fentanyl Citrate (Fentanyl 2ml Vial) 25 mcg PRN Q5MIN PRN IV MILD PAIN 1-3; Start 06/28/19 at 18:30; Stop 06/29/19 at 09:27; Status DC Fentanyl Citrate (Fentanyl 2ml Vial) 50 mcg PRN Q5MIN PRN IV MODERATE TO SEVERE PAIN Last administered on 06/28/19at 20:38; Start 06/28/19 at 18:30; Stop 06/29/19 at 09:27; Status DC Morphine Sulfate (Morphine Sulfate) 1 mg PRN Q10MIN PRN IV SEVERE PAIN 7-10; Start 06/28/19 at 18:30; Stop 06/29/19 at 09:27; Status DC Ringer's Solution 1,000 ml @ 30 mls/hr Q24H IV Last administered on 06/28/19at 20:10; Start 06/28/19 at 18:22; Stop 06/29/19 at 06:21; Status DC Hydromorphone HCl (Dilaudid) 0.5 mg PRN Q10MIN PRN IV SEV PAIN, Second choice Last administered on 06/29/19at 04:56; Start 06/28/19 at 18:30; Stop 06/29/19 at 09:27; Status DC Prochlorperazine Edisylate (Compazine) 5 mg PACU PRN PRN IV NAUSEA, MRX1; Start 06/28/19 at 18:30; Stop 06/29/19 at 18:29; Status DC Sodium Chloride (Normal Saline Flush) 3 ml QSHIFT PRN IV AFTER MEDS AND BLOOD DRAWS; Start 06/28/19 at 19:45 Morphine Sulfate (Morphine Sulfate) 2 mg PRN Q3HRS PRN IV PAIN Last administered on 06/30/19at 08:49; Start 06/28/19 at 19:45 Oxycodone/ Acetaminophen (Percocet 5/325) 1 tab PRN Q4HRS PRN PO MILD PAIN, 1ST CHOICE Last administered on 07/01/19at 09:17; Start 06/28/19 at 19:45 Oxycodone/ Acetaminophen (Percocet 5/325) 2 tab PRN Q4HRS PRN PO MODERATE PAIN, SEVERE PAIN Last administered on 06/29/19at 08:39; Start 06/28/19 at 19:45 Ondansetron HCl (Zofran) 4 mg PRN Q6HRS PRN IV NAUSEA, 1ST CHOICE; Start 06/28/19 at 19:45 Dextrose/Lactated Ringer's 1,000 ml @ 150 mls/hr Q6H40M IV Last administered on 06/29/19at 04:56; Start 06/28/19 at 19:45; Stop 06/29/19 at 07:26; Status DC Metronidazole 100 ml @ 100 mls/hr Q8HRS IV Last administered on 07/01/19at 06 :02; Start 06/28/19 at 21:00 Fentanyl Citrate (Fentanyl 2ml Vial) 100 mcg STK-MED ONCE .ROUTE ; Start 06/28/19 at 20:02; Stop 06/28/19 at 20:02; Status DC Fentanyl Citrate (Fentanyl 2ml Vial) 100 mcg STK-MED ONCE .ROUTE ; Start 06/28/19 at 20:27; Stop 06/28/19 at 20:27; Status DC Calcium Carbonate/ Glycine (Tums) 500 mg PRN AFTMEALHC PRN PO INDIGESTION; Start 06/29/19 at 07:30 Temazepam (Restoril) 7.5 mg PRN QHS PRN PO INSOMNIA; Start 06/29/19 at 07:30 Ketorolac Tromethamine (Toradol 15mg Vial) 15 mg Q6HRS IVP Last administered on 07/01/19at 11:43; Start 06/29/19 at 10:30; Stop 07/04/19 at 10:29 Enoxaparin Sodium (Lovenox 40mg Syringe) 40 mg Q24H SQ Last administered on 07/01/19at 11:46; Start 06/30/19 at 12:00 Amino Acids/ Glycerin/ Electrolytes 1,000 ml @ 80 mls/hr [id number] IV Last administered on 07/01/19at 11:43; Start 06/30/19 at 11:00 Active Scripts Active Reported Lisinopril 40 Mg Tablet 1 Tab PO DAILY Vitals/I & O Vital Sign - Last 24 Hours 06/30/19 06/30/19 06/30/19 06/30/19 15:00 19:42 20:00 22:27 Temp 97.8 98.0 98.2 97.8 98.0 98.2 Pulse 73 72 73 Resp 16 18 16 B/P (MAP) 147/78 (101) 160/89 (112) 137/81 (99) Pulse Ox 92 94 96 O2 Delivery Room Air Room Air Room Air Room Air 07/01/19 07/01/19 07/01/19 07/01/19 03:30 07:00 09:17 09:18 Temp 98.1 98.1 98.1 98.1 Pulse 70 74 Resp 18 16 B/P (MAP) 162/90 (114) 158/93 (114) Pulse Ox 96 97 O2 Delivery Room Air Room Air Room Air Room Air 07/01/19 10:20 O2 Delivery Room Air Intake and Output 06/30/19 06/30/19 07/01/19 15:00 23:00 07:00 Output Total 75 ml 400 ml Balance -75 ml -400 ml MIKE BEAL MD Jul 01, 2019 12:00
[2019-07-01 15:00] VITALS: BP 125/83
[2019-07-01 19:00] VITALS: BP 151/84
[2019-07-01 23:00] VITALS: BP 154/93
[2019-07-02] MEDS: KETOROLAC 15 MG/ML VIAL. IVP SCH ×5 (00:10→23:54)
[2019-07-02] MEDS: AMINO AC 3%/ELECTROLYTE/GLYCER 1,000 ML IV SCH (00:30)
[2019-07-02 03:00] VITALS: BP_SYST 161; BP_SYST 95; BP_DIAS 48; BP_DIAS 96
[2019-07-02 03:07] LABS: BASO # 0.1 x10^3/uL (0.0-0.2); BASO % 1 % (0-3); EOS # 0.1 x10^3/uL (0.0-0.7); EOS % 0 % (0-3); HEMATOCRIT 36.4 % (39.0-53.0); HEMOGLOBIN 12.3 g/dL (13.0-17.5); LYMPH # 0.8 x10^3/uL (1.0-4.8); LYMPH % 4 % (24-48); MEAN CORPUSCULAR HEMOGLOBIN 30 pg (25-35); MEAN CORPUSCULAR HGB CONC 34 g/dL (31-37); MEAN CORPUSCULAR VOLUME 89 fL (79-100); MONO % 6 % (0-9); NEUT # 15.7 x10^3/uL (1.8-7.7); NEUT % 89 % (31-73); PLATELET COUNT 473 x10^3/uL (140-400); RED BLOOD COUNT 4.08 x10^6/uL (4.30-5.70); WHITE BLOOD COUNT 17.6 x10^3/uL (4.0-11.0)
[2019-07-02 03:15] LABS: CALCIUM 8.6 mg/dL (8.5-10.1); CREATININE 1.4 mg/dL (0.7-1.3); GFR 50.9
[2019-07-02 07:00] VITALS: BP 138/84
--- NOTE | 2019-07-02 07:08 | NUR ---
cleared eMAR from material handler 2nd shift. and there is a new bottle of ppn hanging so no need for this bottle at this time
[2019-07-02 11:00] VITALS: BP 164/97
[2019-07-02] MEDS ORDERED: IV NORMAL SALINE 1000ML BAG 1,000 ML IV ONE (11:00)
[2019-07-02] MEDS: ENOXAPARIN 40 MG/0.4 ML SYRINGE. SQ SCH (11:46)
--- NOTE | 2019-07-02 12:04 | PDOC ---
PROGRESS NOTES Chief Complaint Chief Complaint Post-op laparotomy for perforated appendix and cecum Sepsis, resolving Abd pain and distention, post op ileus History of Present Illness History of Present Illness walking well with PT has flatus will try one jello again, still distended, has had more gas passed overnight, no stool, but he says he hasnt eaten anything to make stool DW pt and pt's regarding their care DW RN Reviewed pt's chart Vitals Vitals Vital Signs Date Time Temp Pulse Resp B/P (MAP) Pulse Ox O2 Delivery O2 Flow Rate FiO2 07/02/19 11:00 97.2 76 18 164/97 (119) 95 Room Air 97.2 Physical Exam General: Alert, Oriented X3, Cooperative Heart: Regular rate, Normal S1, Normal S2, No murmurs Lungs: Clear Abdomen: Soft, Other (mildly distended, dressing dry, KATHRYN serosang ) Extremities: No clubbing, No cyanosis, No edema, Normal pulses, No tend erness/swelling Skin: No rashes, No breakdown, No significant lesion Labs LABS Laboratory Tests Test 07/02/19 02:45 White Blood Count 17.6 x10^3/uL (4.0-11.0) Red Blood Count 4.08 x10^6/uL (4.30-5.70) Hemoglobin 12.3 g/dL (13.0-17.5) Hematocrit 36.4 % (39.0-53.0) Mean Corpuscular Volume 89 fL (79-100) Mean Corpuscular Hemoglobin 30 pg (25-35) Mean Corpuscular Hemoglobin Concent 34 g/dL (31-37) Red Cell Distribution Width 14.0 % (11.5-14.5) Platelet Count 473 x10^3/uL (140-400) Neutrophils (%) (Auto) 89 % (31-73) Lymphocytes (%) (Auto) 4 % (24-48) Monocytes (%) (Auto) 6 % (0-9) Eosinophils (%) (Auto) 0 % (0-3) Basophils (%) (Auto) 1 % (0-3) Neutrophils # (Auto) 15.7 x10^3/uL (1.8-7.7) Lymphocytes # (Auto) 0.8 x10^3/uL (1.0-4.8) Monocytes # (Auto) 1.0 x10^3/uL (0.0-1.1) Eosinophils # (Auto) 0.1 x10^3/uL (0.0-0.7) Basophils # (Auto) 0.1 x10^3/uL (0.0-0.2) Sodium Level 137 mmol/L (136-145) Potassium Level 5.0 mmol/L (3.5-5.1) Chloride Level 102 mmol/L (98-107) Carbon Dioxide Level 28 mmol/L (21-32) Anion Gap 7 (6-14) Blood Urea Nitrogen 61 mg/dL (8-26) Creatinine 1.4 mg/dL (0.7-1.3) Estimated GFR (Cockcroft-Gault) 50.9 Glucose Level 139 mg/dL (70-99) Calcium Level 8.6 mg/dL (8.5-10.1) Assessment and Plan Assessmemt and Plan Problems Medical Problems: (1) Acute abdomen Status: Acute (2) Acute renal insufficiency Status: Acute (3) Intra-abdominal abscess Status: Acute (4) Severe sepsis Status: Acute Comment Review of Relevant I have reviewed the following items butch (where applicable) has been applied. Labs Laboratory Tests Test 07/01/19 04:00 07/02/19 02:45 White Blood Count 18.0 x10^3/uL (4.0-11.0) 17.6 x10^3/uL (4.0-11.0) Red Blood Count 3.69 x10^6/uL (4.30-5.70) 4.08 x10^6/uL (4.30-5.70) Hemoglobin 11.0 g/dL (13.0-17.5) 12.3 g/dL (13.0-17.5) Hematocrit 33.2 % (39.0-53.0) 36.4 % (39.0-53.0) Mean Corpuscular Volume 90 fL (79-100) 89 fL (79-100) Mean Corpuscular Hemoglobin 30 pg (25-35) 30 pg (25-35) Mean Corpuscular Hemoglobin Concent 33 g/dL (31-37) 34 g/dL (31-37) Red Cell Distribution Width 13.8 % (11.5-14.5) 14.0 % (11.5-14.5) Platelet Count 392 x10^3/uL (140-400) 473 x10^3/uL (140-400) Neutrophils (%) (Auto) 92 % (31-73) 89 % (31-73) Lymphocytes (%) (Auto) 4 % (24-48) 4 % (24-48) Monocytes (%) (Auto) 4 % (0-9) 6 % (0-9) Eosinophils (%) (Auto) 0 % (0-3) 0 % (0-3) Basophils (%) (Auto) 0 % (0-3) 1 % (0-3) Neutrophils # (Auto) 16.4 x10^3/uL (1.8-7.7) 15.7 x10^3/uL (1.8-7.7) Lymphocytes # (Auto) 0.7 x10^3/uL (1.0-4.8) 0.8 x10^3/uL (1.0-4.8) Monocytes # (Auto) 0.7 x10^3/uL (0.0-1.1) 1.0 x10^3/uL (0.0-1.1) Eosinophils # (Auto) 0.0 x10^3/uL (0.0-0.7) 0.1 x10^3/uL (0.0-0.7) Basophils # (Auto) 0.0 x10^3/uL (0.0-0.2) 0.1 x10^3/uL (0.0-0.2) Sodium Level 137 mmol/L (136-145) 137 mmol/L (136-145) Potassium Level 4.7 mmol/L (3.5-5.1) 5.0 mmol/L (3.5-5.1) Chloride Level 104 mmol/L (98-107) 102 mmol/L (98-107) Carbon Dioxide Level 27 mmol/L (21-32) 28 mmol/L (21-32) Anion Gap 6 (6-14) 7 (6-14) Blood Urea Nitrogen 40 mg/dL (8-26) 61 mg/dL (8-26) Creatinine 1.2 mg/dL (0.7-1.3) 1.4 mg/dL (0.7-1.3) Estimated GFR (Cockcroft-Gault) 60.8 50.9 Glucose Level 99 mg/dL (70-99) 139 mg/dL (70-99) Calcium Level 8.2 mg/dL (8.5-10.1) 8.6 mg/dL (8.5-10.1) Laboratory Tests Test 07/02/19 02:45 White Blood Count 17.6 x10^3/uL (4.0-11.0) Red Blood Count 4.08 x10^6/uL (4.30-5.70) Hemoglobin 12.3 g/dL (13.0-17.5) Hematocrit 36.4 % (39.0-53.0) Mean Corpuscular Volume 89 fL (79-100) Mean Corpuscular Hemoglobin 30 pg (25-35) Mean Corpuscular Hemoglobin Concent 34 g/dL (31-37) Red Cell Distribution Width 14.0 % (11.5-14.5) Platelet Count 473 x10^3/uL (140-400) Neutrophils (%) (Auto) 89 % (31-73) Lymphocytes (%) (Auto) 4 % (24-48) Monocytes (%) (Auto) 6 % (0-9) Eosinophils (%) (Auto) 0 % (0-3) Basophils (%) (Auto) 1 % (0-3) Neutrophils # (Auto) 15.7 x10^3/uL (1.8-7.7) Lymphocytes # (Auto) 0.8 x10^3/uL (1.0-4.8) Monocytes # (Auto) 1.0 x10^3/uL (0.0-1.1) Eosinophils # (Auto) 0.1 x10^3/uL (0.0-0.7) Basophils # (Auto) 0.1 x10^3/uL (0.0-0.2) Sodium Level 137 mmol/L (136-145) Potassium Level 5.0 mmol/L (3.5-5.1) Chloride Level 102 mmol/L (98-107) Carbon Dioxide Level 28 mmol/L (21-32) Anion Gap 7 (6-14) Blood Urea Nitrogen 61 mg/dL (8-26) Creatinine 1.4 mg/dL (0.7-1.3) Estimated GFR (Cockcroft-Gault) 50.9 Glucose Level 139 mg/dL (70-99) Calcium Level 8.6 mg/dL (8.5-10.1) Microbiology 06/28/19 Anaerobic/Aerobic Culture, Resulted Pending 06/28/19 Anaerobic Culture Result 1 (JOANN), Resulted Pending 06/28/19 Aerobic Culture, Resulted Pending 06/28/19 Aerobic Culture Result 1 (JOANN), Resulted Pending 06/28/19 Gram Stain - Final, Resulted 06/28/19 Gram Stain Result 1 (JOANN) - Final, Resulted 06/28/19 Gram Stain Result 2 (JOANN) - Final, Resulted 06/28/19 Blood Culture - Preliminary, Resulted NO GROWTH AFTER 3 DAYS 06/28/19 Urine Culture - Final, Complete 06/28/19 Urine Culture Result 1 (JOANN) - Final, Complete Medications Current Medications Sodium Chloride 1,000 ml @ 1,000 mls/hr 1X ONCE IV Last administered on 06/28/19at 14:59; Start 06/28/19 at 15:00; Stop 06/28/19 at 15:59; Status DC Fentanyl Citrate (Fentanyl 2ml Vial) 50 mcg 1X ONCE IVP Last administered on 06/28/19at 15:00; Start 06/28/19 at 15:00; Stop 06/28/19 at 15:01; Status DC Ondansetron HCl (Zofran) 4 mg 1X ONCE IV Last administered on 06/28/19at 14:59; Start 06/28/19 at 15:00; Stop 06/28/19 at 15:01; Status DC Sodium Chloride 1,000 ml @ 1,000 mls/hr 1X ONCE IV Last administered on 06/28/19at 16:32; Start 06/28/19 at 15:15; Stop 06/28/19 at 16:14; Status DC Piperacillin Sod/ Tazobactam Sod 3.375 gm/Sodium Chloride 50 ml @ 100 mls/hr 1X ONCE IV Last administered on 06/28/19at 15:20; Start 06/28/19 at 15:15; Stop 06/28/19 at 15:44; Status DC Vancomycin HCl 250 ml @ 250 mls/hr 1X ONCE IV Last administered on 06/28/19at 16:29; Start 06/28/19 at 15:15; Stop 06/28/19 at 16:14; Status DC Iohexol (Omnipaque 240 Mg/ml) 50 ml 1X ONCE IV Last administered on 06/28/19at 15:20; Start 06/28/19 at 15:45; Stop 06/28/19 at 15:46; Status DC Info (CONTRAST GIVEN -- Rx MONITORING) 1 each PRN DAILY PRN MC SEE COMMENTS; Start 06/28/19 at 15:45; Stop 06/30/19 at 15:44; Status DC Sodium Chloride 1,000 ml @ 150 mls/hr Q6H40M IV Last administered on 06/29/19at 14:48; Start 06/28/19 at 16:30; Stop 06/29/19 at 16:29; Status DC Propofol 20 ml @ As Directed STK-MED ONCE IV ; Start 06/28/19 at 16:46; Stop 06/28/19 at 16:46; Status DC Lidocaine HCl (Lidocaine Pf 2% Vial) 5 ml STK-MED ONCE .ROUTE ; Start 06/28/19 at 16:46; Stop 06/28/19 at 16:46; Status DC Fentanyl Citrate (Fentanyl 2ml Vial) 100 mcg STK-MED ONCE .ROUTE ; Start 06/28/19 at 16:46; Stop 06/28/19 at 16:46; Status DC Succinylcholine Chloride (Anectine) 200 mg STK-MED ONCE .ROUTE ; Start 06/28/19 at 16:46; Stop 06/28/19 at 16:46; Status DC Rocuronium [place] (Zemuron) 50 mg STK-MED ONCE .ROUTE ; Start 06/28/19 at 16:46; Stop 06/28/19 at 16:46; Status DC Fentanyl Citrate (Fentanyl 2ml Vial) 50 mcg 1X ONCE IVP Last administered on 06/28/19at 16:49; Start 06/28/19 at 17:00; Stop 06/28/19 at 17:01; Status DC Bupivacaine HCl/ Epinephrine Bitart (Sensorcaine-Epi 0.25%-1:526932 Mpf) 30 ml 1X ONCE INJ Last administered on 06/28/19at 17:56; Start 06/28/19 at 18:00; Stop 06/28/19 at 18:01; Status DC Ondansetron HCl (Zofran) 4 mg STK-MED ONCE .ROUTE ; Start 06/28/19 at 17:52; Stop 06/28/19 at 17:53; Status DC Phenylephrine HCl (PHENYLEPHRINE in 0.9% NACL PF) 1 mg STK-MED ONCE IV ; Start 06/28/19 at 17:52; Stop 06/28/19 at 17:53; Status DC Dexamethasone Sodium Phosphate (Decadron) 4 mg STK-MED ONCE .ROUTE ; Start 06/28/19 at 17:52; Stop 06/28/19 at 17:53; Status DC Neostigmine Methylsulfate (Neostigmine Methylsulfate) 5 mg STK-MED ONCE .ROUTE ; Start 06/28/19 at 18:04; Stop 06/28/19 at 18:05; Status DC Glycopyrrolate (Robinul) 1 mg STK-MED ONCE .ROUTE ; Start 06/28/19 at 18:05; Stop 06/28/19 at 18:05; Status DC Ondansetron HCl (Zofran) 4 mg PRN Q6HRS PRN IV NAUSEA/VOMITING Last administered on 06/28/19at 22:40; Start 06/28/19 at 18:30; Stop 06/29/19 at 18:29; Status DC Fentanyl Citrate (Fentanyl 2ml Vial) 25 mcg PRN Q5MIN PRN IV MILD PAIN 1-3; Start 06/28/19 at 18:30; Stop 06/29/19 at 09:27; Status DC Fentanyl Citrate (Fentanyl 2ml Vial) 50 mcg PRN Q5MIN PRN IV MODERATE TO SEVERE PAIN Last administered on 06/28/19at 20:38; Start 06/28/19 at 18:30; Stop 06/29/19 at 09:27; Status DC Morphine Sulfate (Morphine Sulfate) 1 mg PRN Q10MIN PRN IV SEVERE PAIN 7-10; Start 06/28/19 at 18:30; Stop 06/29/19 at 09:27; Status DC Ringer's Solution 1,000 ml @ 30 mls/hr Q24H IV Last administered on 06/28/19at 20:10; Start 06/28/19 at 18:22; Stop 06/29/19 at 06:21; Status DC Hydromorphone HCl (Dilaudid) 0.5 mg PRN Q10MIN PRN IV SEV PAIN, Second choice Last administered on 06/29/19at 04:56; Start 06/28/19 at 18:30; Stop 06/29/19 at 09:27; Status DC Prochlorperazine Edisylate (Compazine) 5 mg PACU PRN PRN IV NAUSEA, MRX1; St art 06/28/19 at 18:30; Stop 06/29/19 at 18:29; Status DC Sodium Chloride (Normal Saline Flush) 3 ml QSHIFT PRN IV AFTER MEDS AND BLOOD DRAWS; Start 06/28/19 at 19:45 Morphine Sulfate (Morphine Sulfate) 2 mg PRN Q3HRS PRN IV PAIN Last administered on 06/30/19at 08:49; Start 06/28/19 at 19:45 Oxycodone/ Acetaminophen (Percocet 5/325) 1 tab PRN Q4HRS PRN PO MILD PAIN, 1ST CHOICE Last administered on 07/01/19at 23:32; Start 06/28/19 at 19:45 Oxycodone/ Acetaminophen (Percocet 5/325) 2 tab PRN Q4HRS PRN PO MODERATE PAIN, SEVERE PAIN Last administered on 06/29/19at 08:39; Start 06/28/19 at 19:45 Ondansetron HCl (Zofran) 4 mg PRN Q6HRS PRN IV NAUSEA, 1ST CHOICE; Start 06/28/19 at 19:45 Dextrose/Lactated Ringer's 1,000 ml @ 150 mls/hr Q6H40M IV Last administered on 06/29/19at 04:56; Start 06/28/19 at 19:45; Stop 06/29/19 at 07:26; Status DC Metronidazole 100 ml @ 100 mls/hr Q8HRS IV Last administered on 07/02/19at 05:59; Start 06/28/19 at 21:00 Fentanyl Citrate (Fentanyl 2ml Vial) 100 mcg STK-MED ONCE .ROUTE ; Start 06/28/19 at 20:02; Stop 06/28/19 at 20:02; Status DC Fentanyl Citrate (Fentanyl 2ml Vial) 100 mcg STK-MED ONCE .ROUTE ; Start 06/28/19 at 20:27; Stop 06/28/19 at 20:27; Status DC Calcium Carbonate/ Glycine (Tums) 500 mg PRN AFTMEALHC PRN PO INDIGESTION; Start 06/29/19 at 07:30 Temazepam (Restoril) 7.5 mg PRN QHS PRN PO INSOMNIA; Start 06/29/19 at 07:30 Ketorolac Tromethamine (Toradol 15mg Vial) 15 mg Q6HRS IVP Last administered on 07/02/19at 11:43; Start 06/29/19 at 10:30; Stop 07/04/19 at 10:29 Enoxaparin Sodium (Lovenox 40mg Syringe) 40 mg Q24H SQ Last administered on 07/02/19at 11:46; Start 06/30/19 at 12:00 Amino Acids/ Glycerin/ Electrolytes 1,000 ml @ 80 mls/hr [id number] IV Last administered on 07/01/19at 11:43; Start 06/30/19 at 11:00 Sodium Chloride 1,000 ml @ 150 mls/hr 1X ONCE IV Last administered on 07/02/19at 11:42; Start 07/02/19 at 11:00; Stop 07/02/19 at 17:39 Active Scripts Active Reported Lisinopril 40 Mg Tablet 1 Tab PO DAILY Vitals/I & O Vital Sign - Last 24 Hours 07/01/19 07/01/19 07/01/19 07/01/19 15:00 19:00 20:10 23:00 Temp 97.7 98.1 97.9 97.7 98.1 97.9 Pulse 73 67 68 Resp 16 16 16 B/P (MAP) 125/83 (97) 151/84 (106) 154/93 (113) Pulse Ox 96 96 96 O2 Delivery Room Air Room Air Room Air Room Air 07/01/19 07/02/19 07/02/19 07/02/19 23:32 00:32 03:00 07:00 Temp 97.7 98.2 97.7 98.2 Pulse 72 84 Resp 20 20 16 16 B/P (MAP) 161/96 (117) 138/84 (102) Pulse Ox 96 97 O2 Delivery Nasal Cannula Room Air Room Air Room Air 07/02/19 07/02/19 07:55 11:00 Temp 97.2 97.2 Pulse 76 Resp 18 B/P (MAP) 164/97 (119) Pulse Ox 95 O2 Delivery Room Air Room Air Intake and Output 07/01/19 07/01/19 07/02/19 15:00 23:00 07:00 Intake Total 1220 ml 340 ml 2020 ml Output Total 190 ml 275 ml 110 ml Balance 1030 ml 65 ml 1910 ml MIKE BEAL MD Jul 02, 2019 12:04
--- NOTE | 2019-07-02 13:05 | NUR ---
SW following for discharge planning. Chart reviewed, discussed with RN. Pt is from home, currently NPO. SW will continue to follow for any discharge planning needs.
--- NOTE | 2019-07-02 15:03 | PDOC ---
SURGICAL PROGRESS NOTE Subjective Patient doing quite well denies any nausea vomiting is passing flatus no bowel movement yet minimal pain Vital Signs Vital Signs Date Time Temp Pulse Resp B/P (MAP) Pulse Ox O2 Delivery O2 Flow Rate FiO2 07/02/19 11:00 97.2 76 18 164/97 (119) 95 Room Air 97.2 I&O Intake and Output 07/02/19 07:00 Intake Total 3580 ml Output Total 575 ml Balance 3005 ml Intake Oral 360 ml IV Total 2260 ml Other 960 ml Output Urine Total 150 ml Stool Total 200 ml Drainage Total 225 ml PATIENT HAS A MENON: No General: Alert, Oriented X3, Cooperative, mild distress Abdomen: Normal bowel sounds, Soft, Other (mild midline incisional tenderness KATHRYN drain intact with cloudy drainage) Labs Laboratory Tests Test 07/01/19 04:00 07/02/19 02:45 White Blood Count 18.0 x10^3/uL (4.0-11.0) 17.6 x10^3/uL (4.0-11.0) Red Blood Count 3.69 x10^6/uL (4.30-5.70) 4.08 x10^6/uL (4.30-5.70) Hemoglobin 11.0 g/dL (13.0-17.5) 12.3 g/dL (13.0-17.5) Hematocrit 33.2 % (39.0-53.0) 36.4 % (39.0-53.0) Mean Corpuscular Volume 90 fL (79-100) 89 fL (79-100) Mean Corpuscular Hemoglobin 30 pg (25-35) 30 pg (25-35) Mean Corpuscular Hemoglobin Concent 33 g/dL (31-37) 34 g/dL (31-37) Red Cell Distribution Width 13.8 % (11.5-14.5) 14.0 % (11.5-14.5) Platelet Count 392 x10^3/uL (140-400) 473 x10^3/uL (140-400) Neutrophils (%) (Auto) 92 % (31-73) 89 % (31-73) Lymphocytes (%) (Auto) 4 % (24-48) 4 % (24-48) Monocytes (%) (Auto) 4 % (0-9) 6 % (0-9) Eosinophils (%) (Auto) 0 % (0-3) 0 % (0-3) Basophils (%) (Auto) 0 % (0-3) 1 % (0-3) Neutrophils # (Auto) 16.4 x10^3/uL (1.8-7.7) 15.7 x10^3/uL (1.8-7.7) Lymphocytes # (Auto) 0.7 x10^3/uL (1.0-4.8) 0.8 x10^3/uL (1.0-4.8) Monocytes # (Auto) 0.7 x10^3/uL (0.0-1.1) 1.0 x10^3/uL (0.0-1.1) Eosinophils # (Auto) 0.0 x10^3/uL (0.0-0.7) 0.1 x10^3/uL (0.0-0.7) Basophils # (Auto) 0.0 x10^3/uL (0.0-0.2) 0.1 x10^3/uL (0.0-0.2) Sodium Level 137 mmol/L (136-145) 137 mmol/L (136-145) Potassium Level 4.7 mmol/L (3.5-5.1) 5.0 mmol/L (3.5-5.1) Chloride Level 104 mmol/L (98-107) 102 mmol/L (98-107) Carbon Dioxide Level 27 mmol/L (21-32) 28 mmol/L (21-32) Anion Gap 6 (6-14) 7 (6-14) Blood Urea Nitrogen 40 mg/dL (8-26) 61 mg/dL (8-26) Creatinine 1.2 mg/dL (0.7-1.3) 1.4 mg/dL (0.7-1.3) Estimated GFR (Cockcroft-Gault) 60.8 50.9 Glucose Level 99 mg/dL (70-99) 139 mg/dL (70-99) Calcium Level 8.2 mg/dL (8.5-10.1) 8.6 mg/dL (8.5-10.1) Laboratory Tests Test 07/02/19 02:45 White Blood Count 17.6 x10^3/uL (4.0-11.0) Red Blood Count 4.08 x10^6/uL (4.30-5.70) Hemoglobin 12.3 g/dL (13.0-17.5) Hematocrit 36.4 % (39.0-53.0) Mean Corpuscular Volume 89 fL (79-100) Mean Corpuscular Hemoglobin 30 pg (25-35) Mean Corpuscular Hemoglobin Concent 34 g/dL (31-37) Red Cell Distribution Width 14.0 % (11.5-14.5) Platelet Count 473 x10^3/uL (140-400) Neutrophils (%) (Auto) 89 % (31-73) Lymphocytes (%) (Auto) 4 % (24-48) Monocytes (%) (Auto) 6 % (0-9) Eosinophils (%) (Auto) 0 % (0-3) Basophils (%) (Auto) 1 % (0-3) Neutrophils # (Auto) 15.7 x10^3/uL (1.8-7.7) Lymphocytes # (Auto) 0.8 x10^3/uL (1.0-4.8) Monocytes # (Auto) 1.0 x10^3/uL (0.0-1.1) Eosinophils # (Auto) 0.1 x10^3/uL (0.0-0.7) Basophils # (Auto) 0.1 x10^3/uL (0.0-0.2) Sodium Level 137 mmol/L (136-145) Potassium Level 5.0 mmol/L (3.5-5.1) Chloride Level 102 mmol/L (98-107) Carbon Dioxide Level 28 mmol/L (21-32) Anion Gap 7 (6-14) Blood Urea Nitrogen 61 mg/dL (8-26) Creatinine 1.4 mg/dL (0.7-1.3) Estimated GFR (Cockcroft-Gault) 50.9 Glucose Level 139 mg/dL (70-99) Calcium Level 8.6 mg/dL (8.5-10.1) Problem List Problems Medical Problems: (1) Acute abdomen Status: Acute (2) Acute renal insufficiency Status: Acute (3) Intra-abdominal abscess Status: Acute (4) Severe sepsis Status: Acute Assessment/Plan Status post right colon resection for perforated cecum and appendicitis Is doing quite well awaiting return of normal bowel function Continue supportive care and antibiotics ARELI OBRIEN MD Jul 02, 2019 15:03
[2019-07-02 15:30] VITALS: BP 150/80
[2019-07-02] MEDS: oxyCODONE/APAP 5/325 1 TAB TABLET PO PRN (16:49)
[2019-07-02 19:00] VITALS: BP 172/94
[2019-07-02] MEDS ORDERED: hydrALAZINE 20 MG/ML VIAL. IVP PRN (21:45)
[2019-07-02 23:00] VITALS: BP 138/76
[2019-07-03] MEDS: AMINO AC 3%/ELECTROLYTE/GLYCER 1,000 ML IV SCH ×4 (01:30→17:41)
[2019-07-03 03:00] VITALS: BP 142/86
[2019-07-03 05:31] LABS: BASO % 0 % (0-3); EOS % 0 % (0-3); HEMATOCRIT 36.1 % (39.0-53.0); HEMOGLOBIN 11.9 g/dL (13.0-17.5); LYMPH # 0.7 x10^3/uL (1.0-4.8); LYMPH % 5 % (24-48); MEAN CORPUSCULAR HEMOGLOBIN 30 pg (25-35); MEAN CORPUSCULAR HGB CONC 33 g/dL (31-37); MEAN CORPUSCULAR VOLUME 90 fL (79-100); MONO # 1.3 x10^3/uL (0.0-1.1); MONO % 9 % (0-9); NEUT # 12.8 x10^3/uL (1.8-7.7); NEUT % 86 % (31-73); PLATELET COUNT 539 x10^3/uL (140-400); RED BLOOD COUNT 4.03 x10^6/uL (4.30-5.70); RED CELL DISTRIBUTION WIDTH 14.3 % (11.5-14.5); WHITE BLOOD COUNT 14.8 x10^3/uL (4.0-11.0)
[2019-07-03 05:49] LABS: CALCIUM 8.6 mg/dL (8.5-10.1); CREATININE 1.3 mg/dL (0.7-1.3); GFR 55.4; POTASSIUM 4.5 mmol/L (3.5-5.1)
[2019-07-03] MEDS: KETOROLAC 15 MG/ML VIAL. IVP SCH ×4 (05:50→23:34)
[2019-07-03 07:00] VITALS: BP 146/86
--- NOTE | 2019-07-03 09:57 | PDOC ---
[facility] [employer] 07/03/19 0957: SURGICAL PROGRESS NOTE Subjective emesis x 1 last night does feel bloated small stool this AM Vital Signs Vital Signs Date Time Temp Pulse Resp B/P (MAP) Pulse Ox O2 Delivery O2 Flow Rate FiO2 07/03/19 07:00 97.8 94 18 146/86 (106) 96 Room Air 97.8 07/02/19 20:20 2.0 I&O Intake and Output 07/03/19 07:00 Intake Total 1710 ml Output Total 500 ml Balance 1210 ml Intake Oral 1610 ml IV Total 100 ml Output Urine Total 450 ml Drainage Total 50 ml General: Alert, Oriented X3, Cooperative Abdomen: Soft, Other (distended, incision intact some drainage from mariam, drain sero cloudy) Labs Laboratory Tests Test 07/02/19 02:45 07/03/19 04:22 White Blood Count 17.6 x10^3/uL (4.0-11.0) 14.8 x10^3/uL (4.0-11.0) Red Blood Count 4.08 x10^6/uL (4.30-5.70) 4.03 x10^6/uL (4.30-5.70) Hemoglobin 12.3 g/dL (13.0-17.5) 11.9 g/dL (13.0-17.5) Hematocrit 36.4 % (39.0-53.0) 36.1 % (39.0-53.0) Mean Corpuscular Volume 89 fL (79-100) 90 fL (79-100) Mean Corpuscular Hemoglobin 30 pg (25-35) 30 pg (25-35) Mean Corpuscular Hemoglobin Concent 34 g/dL (31-37) 33 g/dL (31-37) Red Cell Distribution Width 14.0 % (11.5-14.5) 14.3 % (11.5-14.5) Platelet Count 473 x10^3/uL (140-400) 539 x10^3/uL (140-400) Neutrophils (%) (Auto) 89 % (31-73) 86 % (31-73) Lymphocytes (%) (Auto) 4 % (24-48) 5 % (24-48) Monocytes (%) (Auto) 6 % (0-9) 9 % (0-9) Eosinophils (%) (Auto) 0 % (0-3) 0 % (0-3) Basophils (%) (Auto) 1 % (0-3) 0 % (0-3) Neutrophils # (Auto) 15.7 x10^3/uL (1.8-7.7) 12.8 x10^3/uL (1.8-7.7) Lymphocytes # (Auto) 0.8 x10^3/uL (1.0-4.8) 0.7 x10^3/uL (1.0-4.8) Monocytes # (Auto) 1.0 x10^3/uL (0.0-1.1) 1.3 x10^3/uL (0.0-1.1) Eosinophils # (Auto) 0.1 x10^3/uL (0.0-0.7) 0.0 x10^3/uL (0.0-0.7) Basophils # (Auto) 0.1 x10^3/uL (0.0-0.2) 0.0 x10^3/uL (0.0-0.2) Sodium Level 137 mmol/L (136-145) 139 mmol/L (136-145) Potassium Level 5.0 mmol/L (3.5-5.1) 4.5 mmol/L (3.5-5.1) Chloride Level 102 mmol/L (98-107) 104 mmol/L (98-107) Carbon Dioxide Level 28 mmol/L (21-32) 29 mmol/L (21-32) Anion Gap 7 (6-14) 6 (6-14) Blood Urea Nitrogen 61 mg/dL (8-26) 68 mg/dL (8-26) Creatinine 1.4 mg/dL (0.7-1.3) 1.3 mg/dL (0.7-1.3) Estimated GFR (Cockcroft-Gault) 50.9 55.4 Glucose Level 139 mg/dL (70-99) 147 mg/dL (70-99) Calcium Level 8.6 mg/dL (8.5-10.1) 8.6 mg/dL (8.5-10.1) Laboratory Tests Test 07/03/19 04:22 White Blood Count 14.8 x10^3/uL (4.0-11.0) Red Blood Count 4.03 x10^6/uL (4.30-5.70) Hemoglobin 11.9 g/dL (13.0-17.5) Hematocrit 36.1 % (39.0-53.0) Mean Corpuscular Volume 90 fL (79-100) Mean Corpuscular Hemoglobin 30 pg (25-35) Mean Corpuscular Hemoglobin Concent 33 g/dL (31-37) Red Cell Distribution Width 14.3 % (11.5-14.5) Platelet Count 539 x10^3/uL (140-400) Neutrophils (%) (Auto) 86 % (31-73) Lymphocytes (%) (Auto) 5 % (24-48) Monocytes (%) (Auto) 9 % (0-9) Eosinophils (%) (Auto) 0 % (0-3) Basophils (%) (Auto) 0 % (0-3) Neutrophils # (Auto) 12.8 x10^3/uL (1.8-7.7) Lymphocytes # (Auto) 0.7 x10^3/uL (1.0-4.8) Monocytes # (Auto) 1.3 x10^3/uL (0.0-1.1) Eosinophils # (Auto) 0.0 x10^3/uL (0.0-0.7) Basophils # (Auto) 0.0 x10^3/uL (0.0-0.2) Sodium Level 139 mmol/L (136-145) Potassium Level 4.5 mmol/L (3.5-5.1) Chloride Level 104 mmol/L (98-107) Carbon Dioxide Level 29 mmol/L (21-32) Anion Gap 6 (6-14) Blood Urea Nitrogen 68 mg/dL (8-26) Creatinine 1.3 mg/dL (0.7-1.3) Estimated GFR (Cockcroft-Gault) 55.4 Glucose Level 147 mg/dL (70-99) Calcium Level 8.6 mg/dL (8.5-10.1) Problem List Problems Medical Problems: (1) Acute abdomen Status: Acute (2) Acute renal insufficiency Status: Acute (3) Intra-abdominal abscess Status: Acute (4) Severe sepsis Status: Acute Assessment/Plan npo, bowel rest OBRIEN,ARELI W MD 07/03/19 1313: SURGICAL PROGRESS NOTE Assessment/Plan Bowel function slowed will revert back to nothing by mouth for 24 hours see if he improves agree with Jazmin assessment and plan SONIA PEACE APRN Jul 03, 2019 09:57 ARELI OBRIEN MD Jul 03, 2019 13:13
[2019-07-03 11:00] VITALS: BP 144/84
[2019-07-03] MEDS: ONDANSETRON PF 4 MG/2 ML VIAL. IV PRN ×2 (11:40→17:48)
--- NOTE | 2019-07-03 11:40 | PDOC ---
PROGRESS NOTES Chief Complaint Chief Complaint Post-op laparotomy for perforated appendix and cecum Sepsis, resolving Abd pain and distention, post op ileus History of Present Illness History of Present Illness no abd pain, distended, has vomited, now NPO, will start biotene for symptoms improvement, he is in good spirits despite lack of improvement in gut function, had a very small bowel movement this AM, DW pt and pt's regarding their care DW RN Reviewed pt's chart Vitals Vitals Vital Signs Date Time Temp Pulse Resp B/P (MAP) Pulse Ox O2 Delivery O2 Flow Rate FiO2 07/03/19 07:30 Room Air 07/03/19 07:00 97.8 94 18 146/86 (106) 96 97.8 07/02/19 20:20 2.0 Physical Exam General: Alert, Oriented X3, Cooperative Heart: Regular rate, Normal S1, Normal S2, No murmurs Lungs: Clear Abdomen: Other (distended, some sounds but underactive, and sounds are distant in abd) Extremities: No clubbing, No cyanosis, No edema, Normal pulses, No tenderness/swelling Skin: No rashes, No breakdown, No significant lesion Labs LABS Laboratory Tests Test 07/03/19 04:22 White Blood Count 14.8 x10^3/uL (4.0-11.0) Red Blood Count 4.03 x10^6/uL (4.30-5.70) Hemoglobin 11.9 g/dL (13.0-17.5) Hematocrit 36.1 % (39.0-53.0) Mean Corpuscular Volume 90 fL (79-100) Mean Corpuscular Hemoglobin 30 pg (25-35) Mean Corpuscular Hemoglobin Concent 33 g/dL (31-37) Red Cell Distribution Width 14.3 % (11.5-14.5) Platelet Count 539 x10^3/uL (140-400) Neutrophils (%) (Auto) 86 % (31-73) Lymphocytes (%) (Auto) 5 % (24-48) Monocytes (%) (Auto) 9 % (0-9) Eosinophils (%) (Auto) 0 % (0-3) Basophils (%) (Auto) 0 % (0-3) Neutrophils # (Auto) 12.8 x10^3/uL (1.8-7.7) Lymphocytes # (Auto) 0.7 x10^3/uL (1.0-4.8) Monocytes # (Auto) 1.3 x10^3/uL (0.0-1.1) Eosinophils # (Auto) 0.0 x10^3/uL (0.0-0.7) Basophils # (Auto) 0.0 x10^3/uL (0.0-0.2) Sodium Level 139 mmol/L (136-145) Potassium Level 4.5 mmol/L (3.5-5.1) Chloride Level 104 mmol/L (98-107) Carbon Dioxide Level 29 mmol/L (21-32) Anion Gap 6 (6-14) Blood Urea Nitrogen 68 mg/dL (8-26) Creatinine 1.3 mg/dL (0.7-1.3) Estimated GFR (Cockcroft-Gault) 55.4 Glucose Level 147 mg/dL (70-99) Calcium Level 8.6 mg/dL (8.5-10.1) Assessment and Plan Assessmemt and Plan Problems Medical Problems: (1) Acute abdomen Status: Acute (2) Acute renal insufficiency Status: Acute (3) Intra-abdominal abscess Status: Acute (4) Severe sepsis Status: Acute Comment Review of Relevant I have reviewed the following items butch (where applicable) has been applied. Labs Laboratory Tests Test 07/02/19 02:45 07/03/19 04:22 White Blood Count 17.6 x10^3/uL (4.0-11.0) 14.8 x10^3/uL (4.0-11.0) Red Blood Count 4.08 x10^6/uL (4.30-5.70) 4.03 x10^6/uL (4.30-5.70) Hemoglobin 12.3 g/dL (13.0-17.5) 11.9 g/dL (13.0-17.5) Hematocrit 36.4 % (39.0-53.0) 36.1 % (39.0-53.0) Mean Corpuscular Volume 89 fL (79-100) 90 fL (79-100) Mean Corpuscular Hemoglobin 30 pg (25-35) 30 pg (25-35) Mean Corpuscular Hemoglobin Concent 34 g/dL (31-37) 33 g/dL (31-37) Red Cell Distribution Width 14.0 % (11.5-14.5) 14.3 % (11.5-14.5) Platelet Count 473 x10^3/uL (140-400) 539 x10^3/uL (140-400) Neutrophils (%) (Auto) 89 % (31-73) 86 % (31-73) Lymphocytes (%) (Auto) 4 % (24-48) 5 % (24-48) Monocytes (%) (Auto) 6 % (0-9) 9 % (0-9) Eosinophils (%) (Auto) 0 % (0-3) 0 % (0-3) Basophils (%) (Auto) 1 % (0-3) 0 % (0-3) Neutrophils # (Auto) 15.7 x10^3/uL (1.8-7.7) 12.8 x10^3/uL (1.8-7.7) Lymphocytes # (Auto) 0.8 x10^3/uL (1.0-4.8) 0.7 x10^3/uL (1.0-4.8) Monocytes # (Auto) 1.0 x10^3/uL (0.0-1.1) 1.3 x10^3/uL (0.0-1.1) Eosinophils # (Auto) 0.1 x10^3/uL (0.0-0.7) 0.0 x10^3/uL (0.0-0.7) Basophils # (Auto) 0.1 x10^3/uL (0.0-0.2) 0.0 x10^3/uL (0.0-0.2) Sodium Level 137 mmol/L (136-145) 139 mmol/L (136-145) Potassium Level 5.0 mmol/L (3.5-5.1) 4.5 mmol/L (3.5-5.1) Chloride Level 102 mmol/L (98-107) 104 mmol/L (98-107) Carbon Dioxide Level 28 mmol/L (21-32) 29 mmol/L (21-32) Anion Gap 7 (6-14) 6 (6-14) Blood Urea Nitrogen 61 mg/dL (8-26) 68 mg/dL (8-26) Creatinine 1.4 mg/dL (0.7-1.3) 1.3 mg/dL (0.7-1.3) Estimated GFR (Cockcroft-Gault) 50.9 55.4 Glucose Level 139 mg/dL (70-99) 147 mg/dL (70-99) Calcium Level 8.6 mg/dL (8.5-10.1) 8.6 mg/dL (8.5-10.1) Laboratory Tests Test 07/03/19 04:22 White Blood Count 14.8 x10^3/uL (4.0-11.0) Red Blood Count 4.03 x10^6/uL (4.30-5.70) Hemoglobin 11.9 g/dL (13.0-17.5) Hematocrit 36.1 % (39.0-53.0) Mean Corpuscular Volume 90 fL (79-100) Mean Corpuscular Hemoglobin 30 pg (25-35) Mean Corpuscular Hemoglobin Concent 33 g/dL (31-37) Red Cell Distribution Width 14.3 % (11.5-14.5) Platelet Count 539 x10^3/uL (140-400) Neutrophils (%) (Auto) 86 % (31-73) Lymphocytes (%) (Auto) 5 % (24-48) Monocytes (%) (Auto) 9 % (0-9) Eosinophils (%) (Auto) 0 % (0-3) Basophils (%) (Auto) 0 % (0-3) Neutrophils # (Auto) 12.8 x10^3/uL (1.8-7.7) Lymphocytes # (Auto) 0.7 x10^3/uL (1.0-4.8) Monocytes # (Auto) 1.3 x10^3/uL (0.0-1.1) Eosinophils # (Auto) 0.0 x10^3/uL (0.0-0.7) Basophils # (Auto) 0.0 x10^3/uL (0.0-0.2) Sodium Level 139 mmol/L (136-145) Potassium Level 4.5 mmol/L (3.5-5.1) Chloride Level 104 mmol/L (98-107) Carbon Dioxide Level 29 mmol/L (21-32) Anion Gap 6 (6-14) Blood Urea Nitrogen 68 mg/dL (8-26) Creatinine 1.3 mg/dL (0.7-1.3) Estimated GFR (Cockcroft-Gault) 55.4 Glucose Level 147 mg/dL (70-99) Calcium Level 8.6 mg/dL (8.5-10.1) Microbiology 06/28/19 Anaerobic/Aerobic Culture, Resulted Pending 06/28/19 Anaerobic Culture Result 1 (JOANN), Resulted Pending 06/28/19 Aerobic Culture - Preliminary, Resulted 06/28/19 Aerobic Culture Result 1 (JOANN) - Preliminary, Resulted 06/28/19 Gram Stain - Final, Resulted 06/28/19 Gram Stain Result 1 (JOANN) - Final, Resulted 06/28/19 Gram Stain Result 2 (JOANN) - Final, Resulted 06/28/19 Blood Culture - Preliminary, Resulted NO GROWTH AFTER 4 DAYS 06/28/19 Urine Culture - Final, Complete 06/28/19 Urine Culture Result 1 (JOANN) - Final, Complete Medications Current Medications Sodium Chloride 1,000 ml @ 1,000 mls/hr 1X ONCE IV Last administered on 06/28/19at 14:59; Start 06/28/19 at 15:00; Stop 06/28/19 at 15:59; Status DC Fentanyl Citrate (Fentanyl 2ml Vial) 50 mcg 1X ONCE IVP Last administered on 06/28/19at 15:00; Start 06/28/19 at 15:00; Stop 06/28/19 at 15:01; Status DC Ondansetron HCl (Zofran) 4 mg 1X ONCE IV Last administered on 06/28/19at 14:59; Start 06/28/19 at 15:00; Stop 06/28/19 at 15:01; Status DC Sodium Chloride 1,000 ml @ 1,000 mls/hr 1X ONCE IV Last administered on 06/28/19at 16:32; Start 06/28/19 at 15:15; Stop 06/28/19 at 16:14; Status DC Piperacillin Sod/ Tazobactam Sod 3.375 gm/Sodium Chloride 50 ml @ 100 mls/hr 1X ONCE IV Last administered on 06/28/19at 15:20; Start 06/28/19 at 15:15; Stop 06/28/19 at 15:44; Status DC Vancomycin HCl 250 ml @ 250 mls/hr 1X ONCE IV Last administered on 06/28/19at 16:29; Start 06/28/19 at 15:15; Stop 06/28/19 at 16:14; Status DC Iohexol (Omnipaque 240 Mg/ml) 50 ml 1X ONCE IV Last administered on 06/28/19at 15:20; Start 06/28/19 at 15:45; Stop 06/28/19 at 15:46; Status DC Info (CONTRAST GIVEN -- Rx MONITORING) 1 each PRN DAILY PRN MC SEE COMMENTS; Start 06/28/19 at 15:45; Stop 06/30/19 at 15:44; Status DC Sodium Chloride 1,000 ml @ 150 mls/hr Q6H40M IV Last administered on 06/29/19at 14:48; Start 06/28/19 at 16:30; Stop 06/29/19 at 16:29; Status DC Propofol 20 ml @ As Directed STK-MED ONCE IV ; Start 06/28/19 at 16:46; Stop 06/28/19 at 16:46; Status DC Lidocaine HCl (Lidocaine Pf 2% Vial) 5 ml STK-MED ONCE .ROUTE ; Start 06/28/19 at 16:46; Stop 06/28/19 at 16:46; Status DC Fentanyl Citrate (Fentanyl 2ml Vial) 100 mcg STK-MED ONCE .ROUTE ; Start 06/28/19 at 16:46; Stop 06/28/19 at 16:46; Status DC Succinylcholine Chloride (Anectine) 200 mg STK-MED ONCE .ROUTE ; Start 06/28/19 at 16:46; Stop 06/28/19 at 16:46; Status DC Rocuronium [place] (Zemuron) 50 mg STK-MED ONCE .ROUTE ; Start 06/28/19 at 16:46; Stop 06/28/19 at 16:46; Status DC Fentanyl Citrate (Fentanyl 2ml Vial) 50 mcg 1X ONCE IVP Last administered on 06/28/19at 16:49; Start 06/28/19 at 17:00; Stop 06/28/19 at 17:01; Status DC Bupivacaine HCl/ Epinephrine Bitart (Sensorcaine-Epi 0.25%-1:122433 Mpf) 30 ml 1X ONCE INJ Last administered on 06/28/19at 17:56; Start 06/28/19 at 18:00; Stop 06/28/19 at 18:01; Status DC Ondansetron HCl (Zofran) 4 mg STK-MED ONCE .ROUTE ; Start 06/28/19 at 17:52; Stop 06/28/19 at 17:53; Status DC Phenylephrine HCl (PHENYLEPHRINE in 0.9% NACL PF) 1 mg STK-MED ONCE IV ; Start 06/28/19 at 17:52; Stop 06/28/19 at 17:53; Status DC Dexamethasone Sodium Phosphate (Decadron) 4 mg STK-MED ONCE .ROUTE ; Start 06/28/19 at 17:52; Stop 06/28/19 at 17:53; Status DC Neostigmine Methylsulfate (Neostigmine Methylsulfate) 5 mg STK-MED ONCE .ROUTE ; Start 06/28/19 at 18:04; Stop 06/28/19 at 18:05; Status DC Glycopyrrolate (Robinul) 1 mg STK-MED ONCE .ROUTE ; Start 06/28/19 at 18:05; Stop 06/28/19 at 18:05; Status DC Ondansetron HCl (Zofran) 4 mg PRN Q6HRS PRN IV NAUSEA/VOMITING Last administered on 06/28/19at 22:40; Start 06/28/19 at 18:30; Stop 06/29/19 at 18:29; Status DC Fentanyl Citrate (Fentanyl 2ml Vial) 25 mcg PRN Q5MIN PRN IV MILD PAIN 1-3; Start 06/28/19 at 18:30; Stop 06/29/19 at 09:27; Status DC Fentanyl Citrate (Fentanyl 2ml Vial) 50 mcg PRN Q5MIN PRN IV MODERATE TO SEVERE PAIN Last administered on 06/28/19at 20:38; Start 06/28/19 at 18:30; Stop 06/29/19 at 09:27; Status DC Morphine Sulfate (Morphine Sulfate) 1 mg PRN Q10MIN PRN IV SEVERE PAIN 7-10; Start 06/28/19 at 18:30; Stop 06/29/19 at 09:27; Status DC Ringer's Solution 1,000 ml @ 30 mls/hr Q24H IV Last administered on 06/28/19at 20:10; Start 06/28/19 at 18:22; Stop 06/29/19 at 06:21; Status DC Hydromorphone HCl (Dilaudid) 0.5 mg PRN Q10MIN PRN IV SEV PAIN, Second choice Last administered on 06/29/19 04:56; Start 06/28/19 at 18:30; Stop 06/29/19 at 09:27; Status DC Prochlorperazine Edisylate (Compazine) 5 mg PACU PRN PRN IV NAUSEA, MRX1; St art 06/28/19 at 18:30; Stop 06/29/19 at 18:29; Status DC Sodium Chloride (Normal Saline Flush) 3 ml QSHIFT PRN IV AFTER MEDS AND BLOOD DRAWS; Start 06/28/19 at 19:45 Morphine Sulfate (Morphine Sulfate) 2 mg PRN Q3HRS PRN IV PAIN Last administered on 06/30/19 08:49; Start 06/28/19 at 19:45 Oxycodone/ Acetaminophen (Percocet 5/325) 1 tab PRN Q4HRS PRN PO MILD PAIN, 1ST CHOICE Last administered on 07/02/19at 16:49; Start 06/28/19 at 19:45 Oxycodone/ Acetaminophen (Percocet 5/325) 2 tab PRN Q4HRS PRN PO MODERATE PAIN, SEVERE PAIN Last administered on 06/29/19at 08:39; Start 06/28/19 at 19:45 Ondansetron HCl (Zofran) 4 mg PRN Q6HRS PRN IV NAUSEA, 1ST CHOICE; Start 06/28/19 at 19:45 Dextrose/Lactated Ringer's 1,000 ml @ 150 mls/hr Q6H40M IV Last administered on 06/29/19 04:56; Start 06/28/19 at 19:45; Stop 06/29/19 at 07:26; Status DC Metronidazole 100 ml @ 100 mls/hr Q8HRS IV Last administered on 07/03/19at 05:50; Start 06/28/19 at 21:00 Fentanyl Citrate (Fentanyl 2ml Vial) 100 mcg STK-MED ONCE .ROUTE ; Start 06/28/19 at 20:02; Stop 06/28/19 at 20:02; Status DC Fentanyl Citrate (Fentanyl 2ml Vial) 100 mcg STK-MED ONCE .ROUTE ; Start 06/28/19 at 20:27; Stop 06/28/19 at 20:27; Status DC Calcium Carbonate/ Glycine (Tums) 500 mg PRN AFTMEALHC PRN PO INDIGESTION; Start 06/29/19 at 07:30 Temazepam (Restoril) 7.5 mg PRN QHS PRN PO INSOMNIA; Start 06/29/19 at 07:30 Ketorolac Tromethamine (Toradol 15mg Vial) 15 mg Q6HRS IVP Last administered on 07/03/19at 05:50; Start 06/29/19 at 10:30; Stop 07/04/19 at 10:29 Enoxaparin Sodium (Lovenox 40mg Syringe) 40 mg Q24H SQ Last administered on 07/02/19at 11:46; Start 06/30/19 at 12:00 Amino Acids/ Glycerin/ Electrolytes 1,000 ml @ 80 mls/hr [id number] IV Last administered on 07/03/19at 03:03; Start 06/30/19 at 11:00 Sodium Chloride 1,000 ml @ 150 mls/hr 1X ONCE IV Last administered on 07/02/19at 11:42; Start 07/02/19 at 11:00; Stop 07/02/19 at 17:39; Status DC Hydralazine HCl (Apresoline Inj) 10 mg PRN Q4HRS PRN IVP ELEVATED BP, SEE COMMENTS Last administered on 07/02/19at 21:52; Start 07/02/19 at 21:45 Active Scripts Active Reported Lisinopril 40 Mg Tablet 1 Tab PO DAILY Vitals/I & O Vital Sign - Last 24 Hours 07/02/19 07/02/19 07/02/19 07/02/19 15:30 16:49 18:00 19:00 Temp 98.2 98.1 98.2 98.1 Pulse 78 68 Resp 18 20 B/P (MAP) 150/80 (103) 172/94 (120) Pulse Ox 96 96 O2 Delivery Room Air Room Air Room Air Room Air 07/02/19 07/02/19 07/02/19 07/03/19 20:20 21:52 23:00 03:00 Temp 97.9 97.6 97.9 97.6 Pulse 70 85 89 Resp 20 22 B/P (MAP) 178/92 138/76 (96) 142/86 (104) Pulse Ox 94 96 O2 Delivery Room Air Room Air Room Air O2 Flow Rate 2.0 07/03/19 07/03/19 07:00 07:30 Temp 97.8 97.8 Pulse 94 Resp 18 B/P (MAP) 146/86 (106) Pulse Ox 96 O2 Delivery Room Air Room Air Intake and Output 07/02/19 07/02/19 07/03/19 15:00 23:00 07:00 Intake Total 60 ml 1050 ml 600 ml Output Total 300 ml 200 ml Balance 60 ml 750 ml 400 ml MIKE BEAL MD Jul 03, 2019 11:40
[2019-07-03] MEDS: ENOXAPARIN 40 MG/0.4 ML SYRINGE. SQ SCH (11:42)
[2019-07-03] MEDS ORDERED: SALIVA STIMULANT AGENT 44ML SPRAY BOTTLE. PO PRN ×2 (11:45)
--- NOTE | 2019-07-03 14:07 | PATHOLOGY ---
[facility] Accession Number: [id number] . 01 Material submitted: . cecum - APPENDIX, CECUM FOREIGN BODY . 01 Clinical history: . Possible ruptured appendix versus fruit pit . 02 Diagnosis: Appendix, cecum, and portion of terminal ileum, right hemicolectomy and appendectomy: - Acute appendicitis and periappendicitis with two areas of perforation with associated acute abscess. 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 - Adenomatous polyp, cecum, 0.5 cm. - Six regional lymph nodes with no evidence of carcinoma. - Foreign body consistent with possible fruit pit. (SKM:rainer; 07/03/2019) S 07/03/2019 0912 Local . 02 Electronically signed: . Ezra Shelley MD, Pathologist NPI- [id number] . 01 Gross description: . The specimen is received in formalin, labeled "Emanuel Moreno Vallesteros, appendix, cecum, foreign body". Received is a right hemicolectomy specimen consisting of a segment of small bowel measuring 7.5 cm in length by 2.2 cm in diameter attached to a segment of cecum measuring 7.8 cm in length by 5.5 cm in diameter. Both margins are stapled closed. The serosal surface of the small bowel is pink-tim in appearance. The serosal surface of the colon is pink-jimenez to dusky jimenez-brown in appearance and covered and a slight amount of overlying exudate. The appendix is identified, which is severely perforated and necrotic in appearance, measuring 8.5 cm in length by up to 3.5 cm with a large amount of exudate surrounding the perforation, which measures 3.0 x 2.5 cm. At the distal tip of the appendix, there is a second area of perforation. The attached pericolic and mesenteric fat measures up to 4.3 cm in thickness. The specimen is opened along the antimesenteric line to reveal light tim mucosa within the small bowel, with a moderate amount of Peyer's patches identified ranging in size from 0.1 to 0.5 cm. The ileocecal valve is pink-tim to light tim and grossly unremarkable. The colonic mucosa is light tim with moderate mucosal folds. The mucosa surrounding the appendiceal orifice is inflamed and slightly granular in appearance. A single pink-tim polyp is identified adjacent to the appendiceal orifice measuring 0.5 cm in maximum dimensions. Sectioning through the appendix reveals a dilated lumen surrounded by necrotic-appearing appendiceal wall. Sectioning through the attached pericolic fat reveals six readily identifiable lymph nodes ranging in size from 0.5 to 0.7 cm in maximum dimensions. The specimen is submitted representatively as follows: . A1 proximal margin, en face A2 distal margin, en face A3-A5 provider relations representative sections through primary perforation of appendix A6 provider relations representative sections of distal aspect of the appendix through area of perforation, serially sectioned A7-A8 provider relations representative sections of non-perforated appendix A9 small bowel mucosa A10 ileocecal valve A11 colonic polyp A12 uninvolved colonic mucosa A13-A14 provider relations representative section from each lymph node. . Also received within the specimen container is a foreign body, consistent with a possible fruit pit measuring 2.3 x 1.3 x 1.3 cm in greatest dimensions. Gross photographs are taken. (CAA; 07/01/2019) [facility] 07/03/2019 0914 Local . 02 Pathologist provided ICD-10: K65.8, D12.0, K35.80 . 02 CPT . 562012 Specimen Comment: A courtesy copy of this report has been sent to [phone] Specimen Comment: Report sent to Performed at: [facility] [address], [place], [place] [id number] MD Vladimir Mcneil MD Phone: [phone] Performed at: [facility] [address] [place], [place] [id number] MD Gilbert Taylor MD Phone: [phone]
[2019-07-03 15:00] VITALS: BP 142/82
[2019-07-03] MEDS ORDERED: VANCOMYCIN 2 GM in IV NORMAL SALINE 500ML BAG 500 ML IV ONE (15:00)
--- NOTE | 2019-07-03 16:29 | NUR ---
SW following. Pt on full liquid diet, still very distended. PT/OT recommending home. SW will continue to follow.
--- NOTE | 2019-07-03 16:33 | NUR ---
Pt. vomited x 2 per family, emesis not assessed by staff. Pt. given basin and notified to alert staff if he vomited. Abd distended and firm, pt denies pain or SOB. Will continue to monitor.
--- NOTE | 2019-07-03 18:31 | NUR ---
Pt vomited, admitted to self inducing vomiting. 150cc. Pt. educated to not induce vomiting, verbalized understanding.
[2019-07-03 19:00] VITALS: BP 143/72
[2019-07-03 23:00] VITALS: BP 130/72
--- NOTE | 2019-07-03 23:47 | NUR ---
Patient vomited 210 cc, RN will continue to monitor patient closely.
[2019-07-04 03:00] VITALS: BP 154/83
[2019-07-04] MEDS: KETOROLAC 15 MG/ML VIAL. IVP SCH (06:07)
--- NOTE | 2019-07-04 06:20 | NUR ---
Patient vomited 180cc and brown in color.
[2019-07-04 07:00] VITALS: BP 143/86
[2019-07-04 08:39] LABS: BASO % 0 % (0-3); EOS # 0.1 x10^3/uL (0.0-0.7); EOS % 0 % (0-3); HEMATOCRIT 37.3 % (39.0-53.0); HEMOGLOBIN 12.3 g/dL (13.0-17.5); LYMPH # 1.1 x10^3/uL (1.0-4.8); LYMPH % 7 % (24-48); MEAN CORPUSCULAR HEMOGLOBIN 29 pg (25-35); MEAN CORPUSCULAR HGB CONC 33 g/dL (31-37); MEAN CORPUSCULAR VOLUME 89 fL (79-100); MONO # 1.5 x10^3/uL (0.0-1.1); MONO % 9 % (0-9); NEUT # 13.3 x10^3/uL (1.8-7.7); NEUT % 83 % (31-73); PLATELET COUNT 662 x10^3/uL (140-400); RED BLOOD COUNT 4.19 x10^6/uL (4.30-5.70); RED CELL DISTRIBUTION WIDTH 14.3 % (11.5-14.5)
[2019-07-04 08:49] LABS: CALCIUM 8.5 mg/dL (8.5-10.1); CREATININE 1.8 mg/dL (0.7-1.3); GFR 38.1; POTASSIUM 4.4 mmol/L (3.5-5.1)
--- NOTE | 2019-07-04 08:58 | PDOC ---
SURGICAL PROGRESS NOTE Subjective Doing okay does state he feels with bloated passing flatus had a small bowel movement yesterday would like to have something to drink Vital Signs Vital Signs Date Time Temp Pulse Resp B/P (MAP) Pulse Ox O2 Delivery O2 Flow Rate FiO2 07/04/19 07:25 Room Air 07/04/19 07:00 98.1 84 16 143/86 (105) 95 98.1 I&O Intake and Output 07/04/19 07:00 Intake Total 0 ml Output Total 280 ml Balance -280 ml Intake Oral 0 ml Emesis 150 ml Drainage Total 130 ml # Voids 4 PATIENT HAS A MENON: No General: Alert, Oriented X3, Cooperative, mild distress Abdomen: Normal bowel sounds, Soft, Other (moderately distended nontender to palpation KATHRYN drain intact with serosanguineous drainage) Labs Laboratory Tests Test 07/03/19 04:22 07/04/19 08:20 White Blood Count 14.8 x10^3/uL (4.0-11.0) 16.0 x10^3/uL (4.0-11.0) Red Blood Count 4.03 x10^6/uL (4.30-5.70) 4.19 x10^6/uL (4.30-5.70) Hemoglobin 11.9 g/dL (13.0-17.5) 12.3 g/dL (13.0-17.5) Hematocrit 36.1 % (39.0-53.0) 37.3 % (39.0-53.0) Mean Corpuscular Volume 90 fL (79-100) 89 fL (79-100) Mean Corpuscular Hemoglobin 30 pg (25-35) 29 pg (25-35) Mean Corpuscular Hemoglobin Concent 33 g/dL (31-37) 33 g/dL (31-37) Red Cell Distribution Width 14.3 % (11.5-14.5) 14.3 % (11.5-14.5) Platelet Count 539 x10^3/uL (140-400) 662 x10^3/uL (140-400) Neutrophils (%) (Auto) 86 % (31-73) 83 % (31-73) Lymphocytes (%) (Auto) 5 % (24-48) 7 % (24-48) Monocytes (%) (Auto) 9 % (0-9) 9 % (0-9) Eosinophils (%) (Auto) 0 % (0-3) 0 % (0-3) Basophils (%) (Auto) 0 % (0-3) 0 % (0-3) Neutrophils # (Auto) 12.8 x10^3/uL (1.8-7.7) 13.3 x10^3/uL (1.8-7.7) Lymphocytes # (Auto) 0.7 x10^3/uL (1.0-4.8) 1.1 x10^3/uL (1.0-4.8) Monocytes # (Auto) 1.3 x10^3/uL (0.0-1.1) 1.5 x10^3/uL (0.0-1.1) Eosinophils # (Auto) 0.0 x10^3/uL (0.0-0.7) 0.1 x10^3/uL (0.0-0.7) Basophils # (Auto) 0.0 x10^3/uL (0.0-0.2) 0.0 x10^3/uL (0.0-0.2) Sodium Level 139 mmol/L (136-145) 139 mmol/L (136-145) Potassium Level 4.5 mmol/L (3.5-5.1) 4.4 mmol/L (3.5-5.1) Chloride Level 104 mmol/L (98-107) 100 mmol/L (98-107) Carbon Dioxide Level 29 mmol/L (21-32) 33 mmol/L (21-32) Anion Gap 6 (6-14) 6 (6-14) Blood Urea Nitrogen 68 mg/dL (8-26) 92 mg/dL (8-26) Creatinine 1.3 mg/dL (0.7-1.3) 1.8 mg/dL (0.7-1.3) Estimated GFR (Cockcroft-Gault) 55.4 38.1 Glucose Level 147 mg/dL (70-99) 155 mg/dL (70-99) Calcium Level 8.6 mg/dL (8.5-10.1) 8.5 mg/dL (8.5-10.1) Laboratory Tests Test 07/04/19 08:20 White Blood Count 16.0 x10^3/uL (4.0-11.0) Red Blood Count 4.19 x10^6/uL (4.30-5.70) Hemoglobin 12.3 g/dL (13.0-17.5) Hematocrit 37.3 % (39.0-53.0) Mean Corpuscular Volume 89 fL (79-100) Mean Corpuscular Hemoglobin 29 pg (25-35) Mean Corpuscular Hemoglobin Concent 33 g/dL (31-37) Red Cell Distribution Width 14.3 % (11.5-14.5) Platelet Count 662 x10^3/uL (140-400) Neutrophils (%) (Auto) 83 % (31-73) Lymphocytes (%) (Auto) 7 % (24-48) Monocytes (%) (Auto) 9 % (0-9) Eosinophils (%) (Auto) 0 % (0-3) Basophils (%) (Auto) 0 % (0-3) Neutrophils # (Auto) 13.3 x10^3/uL (1.8-7.7) Lymphocytes # (Auto) 1.1 x10^3/uL (1.0-4.8) Monocytes # (Auto) 1.5 x10^3/uL (0.0-1.1) Eosinophils # (Auto) 0.1 x10^3/uL (0.0-0.7) Basophils # (Auto) 0.0 x10^3/uL (0.0-0.2) Sodium Level 139 mmol/L (136-145) Potassium Level 4.4 mmol/L (3.5-5.1) Chloride Level 100 mmol/L (98-107) Carbon Dioxide Level 33 mmol/L (21-32) Anion Gap 6 (6-14) Blood Urea Nitrogen 92 mg/dL (8-26) Creatinine 1.8 mg/dL (0.7-1.3) Estimated GFR (Cockcroft-Gault) 38.1 Glucose Level 155 mg/dL (70-99) Calcium Level 8.5 mg/dL (8.5-10.1) Problem List Problems Medical Problems: (1) Acute abdomen Status: Acute (2) Acute renal insufficiency Status: Acute (3) Intra-abdominal abscess Status: Acute (4) Severe sepsis Status: Acute Assessment/Plan Status post right colon resection for perforated cecum and appendicitis Awaiting return of bowel function Continue supportive care ARELI OBRIEN MD Jul 04, 2019 08:58
[2019-07-04] MEDS: AMINO AC 3%/ELECTROLYTE/GLYCER 1,000 ML IV SCH (10:39)
[2019-07-04 11:00] VITALS: BP 129/70
--- NOTE | 2019-07-04 11:21 | NUR ---
SW following for discharge planning. Chart reviewed. Discussed with RN. Pt is NPO today and has been vomiting. Not ready for discharge at this time. SW will continue to follow.
[2019-07-04] MEDS: ONDANSETRON PF 4 MG/2 ML VIAL. IV PRN (11:25)
[2019-07-04] MEDS: MORPHINE SULFATE 2 MG/ML VIAL. IV PRN ×3 (11:26→20:43)
--- NOTE | 2019-07-04 12:23 | PDOC ---
[facility] PROGRESS NOTE Chief Complaint Chief Complaint Post-op laparotomy for perforated appendix and cecum Sepsis, resolving DEDRICK Abd pain and distention, post op ileus History of Present Illness History of Present Illness 07/04/19 Pt seen and examined DW pt and pt's DW RN Pt is in good spirits and sitting up in bed Reviewed pt's chart 06/30/19 Pt seen and examined DW pt and pt's regarding their care DW RN Reviewed pt's chart Vitals/I&O Vitals/I&O: Vital Signs Date Time Temp Pulse Resp B/P (MAP) Pulse Ox O2 Delivery O2 Flow Rate FiO2 07/04/19 11:26 Room Air 07/04/19 11:00 97.8 76 16 129/70 (89) 91 97.8 l I & O 07/03/19 07/03/19 07/04/19 15:00 23:00 07:00 Intake Total 0 ml Output Total 200 ml 80 ml Balance -200 ml -80 ml Physical Exam General: Alert, Oriented X3, Cooperative, mild distress Heart: Regular rate, Normal S1, Normal S2, No murmurs Lungs: Clear Abdomen: Normal bowel sounds, Soft, Other (moderately distended nontender to palpation KATHRYN drain intact with serosanguineous drainage) Extremities: No clubbing, No cyanosis, No edema, Normal pulses, No tenderness/s welling Skin: No rashes, No breakdown, No significant lesion Labs Labs: Laboratory Tests Test 07/04/19 08:20 White Blood Count 16.0 x10^3/uL (4.0-11.0) Red Blood Count 4.19 x10^6/uL (4.30-5.70) Hemoglobin 12.3 g/dL (13.0-17.5) Hematocrit 37.3 % (39.0-53.0) Mean Corpuscular Volume 89 fL (79-100) Mean Corpuscular Hemoglobin 29 pg (25-35) Mean Corpuscular Hemoglobin Concent 33 g/dL (31-37) Red Cell Distribution Width 14.3 % (11.5-14.5) Platelet Count 662 x10^3/uL (140-400) Neutrophils (%) (Auto) 83 % (31-73) Lymphocytes (%) (Auto) 7 % (24-48) Monocytes (%) (Auto) 9 % (0-9) Eosinophils (%) (Auto) 0 % (0-3) Basophils (%) (Auto) 0 % (0-3) Neutrophils # (Auto) 13.3 x10^3/uL (1.8-7.7) Lymphocytes # (Auto) 1.1 x10^3/uL (1.0-4.8) Monocytes # (Auto) 1.5 x10^3/uL (0.0-1.1) Eosinophils # (Auto) 0.1 x10^3/uL (0.0-0.7) Basophils # (Auto) 0.0 x10^3/uL (0.0-0.2) Sodium Level 139 mmol/L (136-145) Potassium Level 4.4 mmol/L (3.5-5.1) Chloride Level 100 mmol/L (98-107) Carbon Dioxide Level 33 mmol/L (21-32) Anion Gap 6 (6-14) Blood Urea Nitrogen 92 mg/dL (8-26) Creatinine 1.8 mg/dL (0.7-1.3) Estimated GFR (Cockcroft-Gault) 38.1 Glucose Level 155 mg/dL (70-99) Calcium Level 8.5 mg/dL (8.5-10.1) Review of Systems Review of Systems: No c/o of headache No c/o CP Assessment and Plan Assessmemt and Plan Problems Medical Problems: (1) Acute abdomen Status: Acute (2) Acute renal insufficiency Status: Acute (3) Intra-abdominal abscess Status: Acute (4) Severe sepsis Status: Acute Assessment Post-op laparotomy for perforated appendix and cecum Sepsis, resolving DEDRICK Abd pain and distention, post op ileus Plan PPN Continue Flagyl. Adding Cipro Labs DVT prophylaxis Home meds PT/OT Full code Appreciate subspecialist input Comment Review of Relevant I have reviewed the following items butch (where applicable) has been applied. FUAD GARCIA III DO Jul 04, 2019 12:23
[2019-07-04] MEDS: ENOXAPARIN 40 MG/0.4 ML SYRINGE. SQ SCH (13:26)
[2019-07-04 14:52] VITALS: BP 147/83
[2019-07-04 19:30] VITALS: BP 139/83
[2019-07-04] MEDS: CIPROFLOXACIN HCL 250 MG TABLET. PO SCH (21:00)
[2019-07-04 23:27] VITALS: BP 134/80
[2019-07-05 03:18] VITALS: BP 130/88
[2019-07-05] MEDS: AMINO AC 3%/ELECTROLYTE/GLYCER 1,000 ML IV SCH ×3 (03:30→20:08)
[2019-07-05 07:00] VITALS: BP 143/76
[2019-07-05 07:01] LABS: BASO % 0 % (0-3); EOS # 0.1 x10^3/uL (0.0-0.7); EOS % 1 % (0-3); HEMATOCRIT 35.4 % (39.0-53.0); HEMOGLOBIN 11.7 g/dL (13.0-17.5); LYMPH # 1.3 x10^3/uL (1.0-4.8); LYMPH % 9 % (24-48); MEAN CORPUSCULAR HEMOGLOBIN 30 pg (25-35); MEAN CORPUSCULAR HGB CONC 33 g/dL (31-37); MEAN CORPUSCULAR VOLUME 90 fL (79-100); MONO # 1.3 x10^3/uL (0.0-1.1); MONO % 9 % (0-9); NEUT # 11.5 x10^3/uL (1.8-7.7); NEUT % 81 % (31-73); PLATELET COUNT 625 x10^3/uL (140-400); RED BLOOD COUNT 3.93 x10^6/uL (4.30-5.70); RED CELL DISTRIBUTION WIDTH 14.3 % (11.5-14.5); WHITE BLOOD COUNT 14.2 x10^3/uL (4.0-11.0)
[2019-07-05 07:03] LABS: CALCIUM 8.5 mg/dL (8.5-10.1); CREATININE 1.7 mg/dL (0.7-1.3); GFR 40.7; POTASSIUM 4.4 mmol/L (3.5-5.1)
[2019-07-05] MEDS: MORPHINE SULFATE 2 MG/ML VIAL. IV PRN (08:00)
[2019-07-05] MEDS: CIPROFLOXACIN HCL 250 MG TABLET. PO SCH ×2 (08:40→20:08)
--- NOTE | 2019-07-05 09:50 | PDOC ---
SURGICAL PROGRESS NOTE Subjective Pt sitting up in chair, no pain, but bloated Vital Signs Vital Signs Date Time Temp Pulse Resp B/P (MAP) Pulse Ox O2 Delivery O2 Flow Rate FiO2 07/05/19 08:30 Room Air 07/05/19 07:00 97.9 71 18 143/76 (98) 98 97.9 07/04/19 21:15 2.0 I&O Intake and Output 07/05/19 07:00 Intake Total 360 ml Output Total 420 ml Balance -60 ml Intake Oral 360 ml Emesis 390 ml Drainage Total 30 ml # Voids 3 General: Alert, Cooperative, No acute distress Abdomen: Soft, Other (distended, NTTP) Labs Laboratory Tests Test 07/04/19 08:20 07/05/19 05:40 White Blood Count 16.0 x10^3/uL (4.0-11.0) 14.2 x10^3/uL (4.0-11.0) Red Blood Count 4.19 x10^6/uL (4.30-5.70) 3.93 x10^6/uL (4.30-5.70) Hemoglobin 12.3 g/dL (13.0-17.5) 11.7 g/dL (13.0-17.5) Hematocrit 37.3 % (39.0-53.0) 35.4 % (39.0-53.0) Mean Corpuscular Volume 89 fL (79-100) 90 fL (79-100) Mean Corpuscular Hemoglobin 29 pg (25-35) 30 pg (25-35) Mean Corpuscular Hemoglobin Concent 33 g/dL (31-37) 33 g/dL (31-37) Red Cell Distribution Width 14.3 % (11.5-14.5) 14.3 % (11.5-14.5) Platelet Count 662 x10^3/uL (140-400) 625 x10^3/uL (140-400) Neutrophils (%) (Auto) 83 % (31-73) 81 % (31-73) Lymphocytes (%) (Auto) 7 % (24-48) 9 % (24-48) Monocytes (%) (Auto) 9 % (0-9) 9 % (0-9) Eosinophils (%) (Auto) 0 % (0-3) 1 % (0-3) Basophils (%) (Auto) 0 % (0-3) 0 % (0-3) Neutrophils # (Auto) 13.3 x10^3/uL (1.8-7.7) 11.5 x10^3/uL (1.8-7.7) Lymphocytes # (Auto) 1.1 x10^3/uL (1.0-4.8) 1.3 x10^3/uL (1.0-4.8) Monocytes # (Auto) 1.5 x10^3/uL (0.0-1.1) 1.3 x10^3/uL (0.0-1.1) Eosinophils # (Auto) 0.1 x10^3/uL (0.0-0.7) 0.1 x10^3/uL (0.0-0.7) Basophils # (Auto) 0.0 x10^3/uL (0.0-0.2) 0.0 x10^3/uL (0.0-0.2) Sodium Level 139 mmol/L (136-145) 139 mmol/L (136-145) Potassium Level 4.4 mmol/L (3.5-5.1) 4.4 mmol/L (3.5-5.1) Chloride Level 100 mmol/L (98-107) 100 mmol/L (98-107) Carbon Dioxide Level 33 mmol/L (21-32) 35 mmol/L (21-32) Anion Gap 6 (6-14) 4 (6-14) Blood Urea Nitrogen 92 mg/dL (8-26) 95 mg/dL (8-26) Creatinine 1.8 mg/dL (0.7-1.3) 1.7 mg/dL (0.7-1.3) Estimated GFR (Cockcroft-Gault) 38.1 40.7 Glucose Level 155 mg/dL (70-99) 131 mg/dL (70-99) Calcium Level 8.5 mg/dL (8.5-10.1) 8.5 mg/dL (8.5-10.1) Laboratory Tests Test 07/05/19 05:40 White Blood Count 14.2 x10^3/uL (4.0-11.0) Red Blood Count 3.93 x10^6/uL (4.30-5.70) Hemoglobin 11.7 g/dL (13.0-17.5) Hematocrit 35.4 % (39.0-53.0) Mean Corpuscular Volume 90 fL (79-100) Mean Corpuscular Hemoglobin 30 pg (25-35) Mean Corpuscular Hemoglobin Concent 33 g/dL (31-37) Red Cell Distribution Width 14.3 % (11.5-14.5) Platelet Count 625 x10^3/uL (140-400) Neutrophils (%) (Auto) 81 % (31-73) Lymphocytes (%) (Auto) 9 % (24-48) Monocytes (%) (Auto) 9 % (0-9) Eosinophils (%) (Auto) 1 % (0-3) Basophils (%) (Auto) 0 % (0-3) Neutrophils # (Auto) 11.5 x10^3/uL (1.8-7.7) Lymphocytes # (Auto) 1.3 x10^3/uL (1.0-4.8) Monocytes # (Auto) 1.3 x10^3/uL (0.0-1.1) Eosinophils # (Auto) 0.1 x10^3/uL (0.0-0.7) Basophils # (Auto) 0.0 x10^3/uL (0.0-0.2) Sodium Level 139 mmol/L (136-145) Potassium Level 4.4 mmol/L (3.5-5.1) Chloride Level 100 mmol/L (98-107) Carbon Dioxide Level 35 mmol/L (21-32) Anion Gap 4 (6-14) Blood Urea Nitrogen 95 mg/dL (8-26) Creatinine 1.7 mg/dL (0.7-1.3) Estimated GFR (Cockcroft-Gault) 40.7 Glucose Level 131 mg/dL (70-99) Calcium Level 8.5 mg/dL (8.5-10.1) Problem List Problems Medical Problems: (1) Acute abdomen Status: Acute (2) Acute renal insufficiency Status: Acute (3) Intra-abdominal abscess Status: Acute (4) Severe sepsis Status: Acute Assessment/Plan s/p right colon will check CT KASANDRA FOX MD Jul 05, 2019 09:50
[2019-07-05 11:00] VITALS: BP 154/87
[2019-07-05] MEDS ORDERED: IOHEXOL 240 MG/ML 50ML VIAL. PO ONE (12:45)
--- NOTE | 2019-07-05 12:48 | RAD ---
Supine abdomen. HISTORY: Distended abdomen Supine view was taken of the abdomen. There are kojo in the skin suggesting recent surgery. The stomach is markedly distended. There are distended loops of small bowel and colon. There is contrast in the right colon. There is a drainage catheter on the right side of the abdomen. IMPRESSION: 1. Gastric distention. 2. Distended colon and small bowel possible ileus. 3. Changes from abdominal surgery. 4. Contrast noted in the right colon. Electronically signed by: Jremain Simmons MD (07/05/2019 12:45 PM) [facility]
[2019-07-05] MEDS ORDERED: CONTRAST GIVEN. MC PRN (13:00)
[2019-07-05] MEDS ORDERED: fentaNYL PF VIAL 100 MCG/2 ML VIAL IVP ONE (13:30)
[2019-07-05] MEDS: ENOXAPARIN 40 MG/0.4 ML SYRINGE. SQ SCH (13:36)
--- NOTE | 2019-07-05 14:09 | RAD ---
Noncontrast CT scan of the abdomen and pelvis compared to similar exam dated June 28, 2019 for bloating, status post right colon pathology. TECHNIQUE: Contiguous helical 5 mm axial images are obtained from the apex of diaphragm to the pelvic floor. Sagittal and coronal reformations are evaluated. FINDINGS: There is a tiny stable pleural effusion on the right, and there is a new small effusion on the left. Atelectasis or infiltrate in the left lung base is new as well. There is contrast within the distal esophagus. The stomach is markedly distended and there are air and fluid-filled loops of small bowel diffusely, with no transition point to suggest bowel obstruction. This likely represents adynamic ileus. There is contrast within a decompressed cecum and ascending colon, and there is some air distributed throughout the remainder of the colon to the level the rectum. There are postsurgical changes of an open laparotomy, and there is a new drain in the right lower quadrant of the abdomen. The previously seen. Cecal fluid collection is resolved, with only a trace residual fluid pocket measuring 1.5 x 2.4 cm. The urinary bladder is fluid distended and grossly unremarkable. No abdominal ascites is seen. No suspicious pelvic, retroperitoneal, or mesenteric adenopathy is evident. The gallbladder is fluid distended and there is at least one small dependent gallstone identified. No pericholecystic fluid. Evaluation of the solid organs of the abdomen is limited by lack of IV contrast, however no morphologic anomalies of the liver, pancreas, bilateral adrenal glands, spleen, or left kidney are identified. There is a partially exophytic cystic abnormality involving the inferior pole the right kidney which is incompletely evaluated on this noncontrast exam. Consider renal ultrasound on elective basis for further evaluation. There is straightening of the normal lumbar lordosis and there is grade 1 anterolisthesis of L4 and L5. There are bilateral pars defects at this level. There is been posterior decompression at L5 as well. No suspicious osteoblastic or osteolytic bone lesions are identified. IMPRESSION: 1. New small left pleural effusion and new atelectasis or infiltrate in the left lung base. 2. Gastric and small bowel dilatation diffusely most consistent with adynamic ileus. This patient may benefit from gastric decompression with an NG tube. 3. Interval laparotomy with evacuation of a right lower quadrant abscess, and placement of a percutaneous drain. There is a trace residual fluid pocket measuring 1.5 x 2.4 cm, lying immediately adjacent to the percutaneous drain. 4. Cholelithiasis without CT evidence of acute cholecystitis. 5. Exophytic right renal cyst, incompletely evaluated on this noncontrast exam. Consider further evaluation with elective renal ultrasound for definitive assessment. 6. 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 PQRS Compliance Statement: One or more of the following individualized dose reduction techniques were utilized for this examination: 1. Automated exposure control 2. Adjustment of the mA and/or kV according to patient size 3. Use of iterative reconstruction technique Electronically signed by: Yaniv Mccann MD (07/05/2019 2:06 PM) [facility]
--- NOTE | 2019-07-05 14:37 | PDOC ---
PROGRESS NOTES Chief Complaint Chief Complaint Post-op laparotomy for perforated appendix and cecum Sepsis, resolving DEDRICK Abd pain and distention, post op ileus History of Present Illness History of Present Illness 07/05 - distended CT showed ileus mult other problems Vitals Vitals Vital Signs Date Time Temp Pulse Resp B/P (MAP) Pulse Ox O2 Delivery O2 Flow Rate FiO2 07/05/19 13:35 Room Air 07/05/19 11:00 97.6 73 18 154/87 (109) 94 97.6 07/04/19 21:15 2.0 Physical Exam General: Alert, Cooperative, No acute distress Heart: Regular rate, Normal S1, Normal S2, No murmurs Lungs: Clear Abdomen: Soft, Other (distended, NTTP) Extremities: No clubbing, No cyanosis, No edema, Normal pulses, No tenderness/swelling Skin: No rashes, No breakdown, No significant lesion Labs LABS Laboratory Tests Test 07/05/19 05:40 White Blood Count 14.2 x10^3/uL (4.0-11.0) Red Blood Count 3.93 x10^6/uL (4.30-5.70) Hemoglobin 11.7 g/dL (13.0-17.5) Hematocrit 35.4 % (39.0-53.0) Mean Corpuscular Volume 90 fL (79-100) Mean Corpuscular Hemoglobin 30 pg (25-35) Mean Corpuscular Hemoglobin Concent 33 g/dL (31-37) Red Cell Distribution Width 14.3 % (11.5-14.5) Platelet Count 625 x10^3/uL (140-400) Neutrophils (%) (Auto) 81 % (31-73) Lymphocytes (%) (Auto) 9 % (24-48) Monocytes (%) (Auto) 9 % (0-9) Eosinophils (%) (Auto) 1 % (0-3) Basophils (%) (Auto) 0 % (0-3) Neutrophils # (Auto) 11.5 x10^3/uL (1.8-7.7) Lymphocytes # (Auto) 1.3 x10^3/uL (1.0-4.8) Monocytes # (Auto) 1.3 x10^3/uL (0.0-1.1) Eosinophils # (Auto) 0.1 x10^3/uL (0.0-0.7) Basophils # (Auto) 0.0 x10^3/uL (0.0-0.2) Sodium Level 139 mmol/L (136-145) Potassium Level 4.4 mmol/L (3.5-5.1) Chloride Level 100 mmol/L (98-107) Carbon Dioxide Level 35 mmol/L (21-32) Anion Gap 4 (6-14) Blood Urea Nitrogen 95 mg/dL (8-26) Creatinine 1.7 mg/dL (0.7-1.3) Estimated GFR (Cockcroft-Gault) 40.7 Glucose Level 131 mg/dL (70-99) Calcium Level 8.5 mg/dL (8.5-10.1) Assessment and Plan Assessmemt and Plan Problems Medical Problems: (1) Acute abdomen Status: Acute (2) Acute renal insufficiency Status: Acute (3) Intra-abdominal abscess Status: Acute (4) Severe sepsis Status: Acute Comment Review of Relevant I have reviewed the following items butch (where applicable) has been applied. Labs Laboratory Tests Test 07/04/19 08:20 07/05/19 05:40 White Blood Count 16.0 x10^3/uL (4.0-11.0) 14.2 x10^3/uL (4.0-11.0) Red Blood Count 4.19 x10^6/uL (4.30-5.70) 3.93 x10^6/uL (4.30-5.70) Hemoglobin 12.3 g/dL (13.0-17.5) 11.7 g/dL (13.0-17.5) Hematocrit 37.3 % (39.0-53.0) 35.4 % (39.0-53.0) Mean Corpuscular Volume 89 fL (79-100) 90 fL (79-100) Mean Corpuscular Hemoglobin 29 pg (25-35) 30 pg (25-35) Mean Corpuscular Hemoglobin Concent 33 g/dL (31-37) 33 g/dL (31-37) Red Cell Distribution Width 14.3 % (11.5-14.5) 14.3 % (11.5-14.5) Platelet Count 662 x10^3/uL (140-400) 625 x10^3/uL (140-400) Neutrophils (%) (Auto) 83 % (31-73) 81 % (31-73) Lymphocytes (%) (Auto) 7 % (24-48) 9 % (24-48) Monocytes (%) (Auto) 9 % (0-9) 9 % (0-9) Eosinophils (%) (Auto) 0 % (0-3) 1 % (0-3) Basophils (%) (Auto) 0 % (0-3) 0 % (0-3) Neutrophils # (Auto) 13.3 x10^3/uL (1.8-7.7) 11.5 x10^3/uL (1.8-7.7) Lymphocytes # (Auto) 1.1 x10^3/uL (1.0-4.8) 1.3 x10^3/uL (1.0-4.8) Monocytes # (Auto) 1.5 x10^3/uL (0.0-1.1) 1.3 x10^3/uL (0.0-1.1) Eosinophils # (Auto) 0.1 x10^3/uL (0.0-0.7) 0.1 x10^3/uL (0.0-0.7) Basophils # (Auto) 0.0 x10^3/uL (0.0-0.2) 0.0 x10^3/uL (0.0-0.2) Sodium Level 139 mmol/L (136-145) 139 mmol/L (136-145) Potassium Level 4.4 mmol/L (3.5-5.1) 4.4 mmol/L (3.5-5.1) Chloride Level 100 mmol/L (98-107) 100 mmol/L (98-107) Carbon Dioxide Level 33 mmol/L (21-32) 35 mmol/L (21-32) Anion Gap 6 (6-14) 4 (6-14) Blood Urea Nitrogen 92 mg/dL (8-26) 95 mg/dL (8-26) Creatinine 1.8 mg/dL (0.7-1.3) 1.7 mg/dL (0.7-1.3) Estimated GFR (Cockcroft-Gault) 38.1 40.7 Glucose Level 155 mg/dL (70-99) 131 mg/dL (70-99) Calcium Level 8.5 mg/dL (8.5-10.1) 8.5 mg/dL (8.5-10.1) Laboratory Tests Test 07/05/19 05:40 White Blood Count 14.2 x10^3/uL (4.0-11.0) Red Blood Count 3.93 x10^6/uL (4.30-5.70) Hemoglobin 11.7 g/dL (13.0-17.5) Hematocrit 35.4 % (39.0-53.0) Mean Corpuscular Volume 90 fL (79-100) Mean Corpuscular Hemoglobin 30 pg (25-35) Mean Corpuscular Hemoglobin Concent 33 g/dL (31-37) Red Cell Distribution Width 14.3 % (11.5-14.5) Platelet Count 625 x10^3/uL (140-400) Neutrophils (%) (Auto) 81 % (31-73) Lymphocytes (%) (Auto) 9 % (24-48) Monocytes (%) (Auto) 9 % (0-9) Eosinophils (%) (Auto) 1 % (0-3) Basophils (%) (Auto) 0 % (0-3) Neutrophils # (Auto) 11.5 x10^3/uL (1.8-7.7) Lymphocytes # (Auto) 1.3 x10^3/uL (1.0-4.8) Monocytes # (Auto) 1.3 x10^3/uL (0.0-1.1) Eosinophils # (Auto) 0.1 x10^3/uL (0.0-0.7) Basophils # (Auto) 0.0 x10^3/uL (0.0-0.2) Sodium Level 139 mmol/L (136-145) Potassium Level 4.4 mmol/L (3.5-5.1) Chloride Level 100 mmol/L (98-107) Carbon Dioxide Level 35 mmol/L (21-32) Anion Gap 4 (6-14) Blood Urea Nitrogen 95 mg/dL (8-26) Creatinine 1.7 mg/dL (0.7-1.3) Estimated GFR (Cockcroft-Gault) 40.7 Glucose Level 131 mg/dL (70-99) Calcium Level 8.5 mg/dL (8.5-10.1) Microbiology 06/28/19 Anaerobic/Aerobic Culture - Final, Complete 06/28/19 Anaerobic Culture Result 1 (JOANN) - Final, Complete 06/28/19 Aerobic Culture - Final, Complete 06/28/19 Aerobic Culture Result 1 (JOANN) - Final, Complete 06/28/19 Gram Stain - Final, Complete 06/28/19 Gram Stain Result 1 (JOANN) - Final, Complete 06/28/19 Gram Stain Result 2 (JOANN) - Final, Complete 06/28/19 Blood Culture - Final, Complete NO GROWTH AFTER 5 DAYS 06/28/19 Urine Culture - Final, Complete 06/28/19 Urine Culture Result 1 (JOANN) - Final, Complete Medications Current Medications Sodium Chloride 1,000 ml @ 1,000 mls/hr 1X ONCE IV Last administered on 06/28/19at 14:59; Start 06/28/19 at 15:00; Stop 06/28/19 at 15:59; Status DC Fentanyl Citrate (Fentanyl 2ml Vial) 50 mcg 1X ONCE IVP Last administered on 06/28/19at 15:00; Start 06/28/19 at 15:00; Stop 06/28/19 at 15:01; Status DC Ondansetron HCl (Zofran) 4 mg 1X ONCE IV Last administered on 06/28/19at 14:59; Start 06/28/19 at 15:00; Stop 06/28/19 at 15:01; Status DC Sodium Chloride 1,000 ml @ 1,000 mls/hr 1X ONCE IV Last administered on 06/28/19at 16:32; Start 06/28/19 at 15:15; Stop 06/28/19 at 16:14; Status DC Piperacillin Sod/ Tazobactam Sod 3.375 gm/Sodium Chloride 50 ml @ 100 mls/hr 1X ONCE IV Last administered on 06/28/19at 15:20; Start 06/28/19 at 15:15; Stop 06/28/19 at 15:44; Status DC Vancomycin HCl 250 ml @ 250 mls/hr 1X ONCE IV Last administered on 06/28/19at 16:29; Start 06/28/19 at 15:15; Stop 06/28/19 at 16:14; Status DC Iohexol (Omnipaque 240 Mg/ml) 50 ml 1X ONCE IV Last administered on 06/28/19at 15:20; Start 06/28/19 at 15:45; Stop 06/28/19 at 15:46; Status DC Info (CONTRAST GIVEN -- Rx MONITORING) 1 each PRN DAILY PRN MC SEE COMMENTS; Start 06/28/19 at 15:45; Stop 06/30/19 at 15:44; Status DC Sodium Chloride 1,000 ml @ 150 mls/hr Q6H40M IV Last administered on 06/29/19at 14:48; Start 06/28/19 at 16:30; Stop 06/29/19 at 16:29; Status DC Propofol 20 ml @ As Directed STK-MED ONCE IV ; Start 06/28/19 at 16:46; Stop 06/28/19 at 16:46; Status DC Lidocaine HCl (Lidocaine Pf 2% Vial) 5 ml STK-MED ONCE .ROUTE ; Start 06/28/19 at 16:46; Stop 06/28/19 at 16:46; Status DC Fentanyl Citrate (Fentanyl 2ml Vial) 100 mcg STK-MED ONCE .ROUTE ; Start 06/28/19 at 16:46; Stop 06/28/19 at 16:46; Status DC Succinylcholine Chloride (Anectine) 200 mg STK-MED ONCE .ROUTE ; Start 06/28/19 at 16:46; Stop 06/28/19 at 16:46; Status DC Rocuronium [place] (Zemuron) 50 mg STK-MED ONCE .ROUTE ; Start 06/28/19 at 16:46; Stop 06/28/19 at 16:46; Status DC Fentanyl Citrate (Fentanyl 2ml Vial) 50 mcg 1X ONCE IVP Last administered on 06/28/19at 16:49; Start 06/28/19 at 17:00; Stop 06/28/19 at 17:01; Status DC Bupivacaine HCl/ Epinephrine Bitart (Sensorcaine-Epi 0.25%-1:998237 Mpf) 30 ml 1X ONCE INJ Last administered on 06/28/19at 17:56; Start 06/28/19 at 18:00; Stop 06/28/19 at 18:01; Status DC Ondansetron HCl (Zofran) 4 mg STK-MED ONCE .ROUTE ; Start 06/28/19 at 17:52; Stop 06/28/19 at 17:53; Status DC Phenylephrine HCl (PHENYLEPHRINE in 0.9% NACL PF) 1 mg STK-MED ONCE IV ; Start 06/28/19 at 17:52; Stop 06/28/19 at 17:53; Status DC Dexamethasone Sodium Phosphate (Decadron) 4 mg STK-MED ONCE .ROUTE ; Start 06/28/19 at 17:52; Stop 06/28/19 at 17:53; Status DC Neostigmine Methylsulfate (Neostigmine Methylsulfate) 5 mg STK-MED ONCE .ROUTE ; Start 06/28/19 at 18:04; Stop 06/28/19 at 18:05; Status DC Glycopyrrolate (Robinul) 1 mg STK-MED ONCE .ROUTE ; Start 06/28/19 at 18:05; Stop 06/28/19 at 18:05; Status DC Ondansetron HCl (Zofran) 4 mg PRN Q6HRS PRN IV NAUSEA/VOMITING Last administered on 06/28/19at 22:40; Start 06/28/19 at 18:30; Stop 06/29/19 at 18:29; Status DC Fentanyl Citrate (Fentanyl 2ml Vial) 25 mcg PRN Q5MIN PRN IV MILD PAIN 1-3; Start 06/28/19 at 18:30; Stop 06/29/19 at 09:27; Status DC Fentanyl Citrate (Fentanyl 2ml Vial) 50 mcg PRN Q5MIN PRN IV MODERATE TO SEVERE PAIN Last administered on 06/28/19at 20:38; Start 06/28/19 at 18:30; Stop 06/29/19 at 09:27; Status DC Morphine Sulfate (Morphine Sulfate) 1 mg PRN Q10MIN PRN IV SEVERE PAIN 7-10; Start 06/28/19 at 18:30; Stop 06/29/19 at 09:27; Status DC Ringer's Solution 1,000 ml @ 30 mls/hr Q24H IV Last administered on 06/28/19at 20:10; Start 06/28/19 at 18:22; Stop 06/29/19 at 06:21; Status DC Hydromorphone HCl (Dilaudid) 0.5 mg PRN Q10MIN PRN IV SEV PAIN, Second choice Last administered on 06/29/19at 04:56; Start 06/28/19 at 18:30; Stop 06/29/19 at 09:27; Status DC Prochlorperazine Edisylate (Compazine) 5 mg PACU PRN PRN IV NAUSEA, MRX1; Start 06/28/19 at 18:30; Stop 06/29/19 at 18:29; Status DC Sodium Chloride (Normal Saline Flush) 3 ml QSHIFT PRN IV AFTER MEDS AND BLOOD DRAWS; Start 06/28/19 at 19:45 Morphine Sulfate (Morphine Sulfate) 2 mg PRN Q3HRS PRN IV MILD PAIN 1-3 Last administered on 07/05/19at 08:00; Start 06/28/19 at 19:45 Oxycodone/ Acetaminophen (Percocet 5/325) 1 tab PRN Q4HRS PRN PO MILD PAIN, 1ST CHOICE Last administered on 07/02/19at 16:49; Start 06/28/19 at 19:45 Oxycodone/ Acetaminophen (Percocet 5/325) 2 tab PRN Q4HRS PRN PO MODERATE PAIN, SEVERE PAIN Last administered on 06/29/19at 08:39; Start 06/28/19 at 19:45 Ondansetron HCl (Zofran) 4 mg PRN Q6HRS PRN IV NAUSEA, 1ST CHOICE Last administered on 07/04/19at 11:25; Start 06/28/19 at 19:45 Dextrose/Lactated Ringer's 1,000 ml @ 150 mls/hr Q6H40M IV Last administered on 06/29/19at 04:56; Start 06/28/19 at 19:45; Stop 06/29/19 at 07:26; Status DC Metronidazole 100 ml @ 100 mls/hr Q8HRS IV Last administered on 07/05/19at 13:36; Start 06/28/19 at 21:00 Fentanyl Citrate (Fentanyl 2ml Vial) 100 mcg STK-MED ONCE .ROUTE ; Start 06/28/19 at 20:02; Stop 06/28/19 at 20:02; Status DC Fentanyl Citrate (Fentanyl 2ml Vial) 100 mcg STK-MED ONCE .ROUTE ; Start 06/28/19 at 20:27; Stop 06/28/19 at 20:27; Status DC Calcium Carbonate/ Glycine (Tums) 500 mg PRN AFTMEALHC PRN PO INDIGESTION; Start 06/29/19 at 07:30 Temazepam (Restoril) 7.5 mg PRN QHS PRN PO INSOMNIA; Start 06/29/19 at 07:30 Ketorolac Tromethamine (Toradol 15mg Vial) 15 mg Q6HRS IVP Last administered on 07/04/19at 06:07; Start 06/29/19 at 10:30; Stop 07/04/19 at 10:29; Status DC Enoxaparin Sodium (Lovenox 40mg Syringe) 40 mg Q24H SQ Last administered on 07/05/19at 13:36; Start 06/30/19 at 12:00 Amino Acids/ Glycerin/ Electrolytes 1,000 ml @ 80 mls/hr [id number] IV Last administered on 07/05/19at 03:30; Start 06/30/19 at 11:00 Sodium Chloride 1,000 ml @ 150 mls/hr 1X ONCE IV Last administered on 07/02/19at 11:42; Start 07/02/19 at 11:00; Stop 07/02/19 at 17:39; Status DC Hydralazine HCl (Apresoline Inj) 10 mg PRN Q4HRS PRN IVP ELEVATED BP, SEE COMM ENTS Last administered on 07/02/19at 21:52; Start 07/02/19 at 21:45 Saliva Substitute (Biotene Moisturizing Mouth) 2 spray PRN Q15MIN PRN PO DRY MOUTH Last administered on 07/03/19at 17:51; Start 07/03/19 at 11:45 Saliva Substitute (Biotene Moisturizing Mouth) 2 spray PRN Q15MIN PRN PO DRY MOUTH; Start 07/03/19 at 11:45; Status UNV Vancomycin HCl 2 gm/Sodium Chloride 500 ml @ 250 mls/hr 1X ONCE IV ; Start 07/03/19 at 15:00; Stop 07/03/19 at 16:59; Status Cancel Ciprofloxacin (Cipro) 500 mg BID PO ; Start 07/04/19 at 21:00 Iohexol (Omnipaque 240 Mg/ml) 50 ml 1X ONCE PO ; Start 07/05/19 at 12:45; Stop 07/05/19 at 12:55; Status DC Info (CONTRAST GIVEN -- Rx MONITORING) 1 each PRN DAILY PRN MC SEE COMMENTS; Start 07/05/19 at 13:00; Stop 07/07/19 at 12:59 Morphine Sulfate (Morphine Sulfate) 4 mg PRN Q3HRS PRN IV MODERATE TO SEVERE PAIN; Start 07/05/19 at 13:30 Fentanyl Citrate (Fentanyl 2ml Vial) 75 mcg 1X ONCE IVP Last administered on 07/05/19at 13:35; Start 07/05/19 at 13:30; Stop 07/05/19 at 13:32; Status DC Active Scripts Active Reported Lisinopril 40 Mg Tablet 1 Tab PO DAILY Vitals/I & O Vital Sign - Last 24 Hours 07/04/19 07/04/19 07/04/19 07/04/19 14:52 15:04 16:35 17:05 Temp 98.1 98.1 Pulse 77 Resp 16 20 20 B/P (MAP) 147/83 (104) Pulse Ox 91 91 O2 Delivery Room Air Room Air Room Air Room Air O2 Flow Rate 2.0 07/04/19 07/04/19 07/04/19 07/04/19 19:30 20:00 20:43 21:15 Temp 97.7 97.7 Pulse 75 Resp 18 20 B/P (MAP) 139/83 (101) Pulse Ox 94 94 O2 Delivery Room Air Room Air Room Air O2 Flow Rate 2.0 2.0 07/04/19 07/05/19 07/05/19 07/05/19 23:27 03:18 07:00 08:00 Temp 97.4 97.8 97.9 97.4 97.8 97.9 Pulse 75 73 71 Resp 18 20 18 B/P (MAP) 134/80 (98) 130/88 (102) 143/76 (98) Pulse Ox 94 99 98 O2 Delivery Room Air Room Air Room Air Room Air 07/05/19 07/05/19 07/05/19 07/05/19 08:00 08:30 11:00 13:35 Temp 97.6 97.6 Pulse 73 Resp 18 B/P (MAP) 154/87 (109) Pulse Ox 94 O2 Delivery Room Air Room Air Room Air Room Air Intake and Output 07/04/19 07/04/19 07/05/19 15:00 23:00 07:00 Intake Total 360 ml Output Total 390 ml 30 ml Balance -390 ml 360 ml -30 ml MIKE BEAL MD Jul 05, 2019 14:37
[2019-07-05 15:00] VITALS: BP 153/83
--- NOTE | 2019-07-05 15:13 | PDOC2 ---
GI CONSULT HPI: HPI: 63 year old with no prior colonoscopy admitted with appendicitis now s/p right hemicolectomy and appendectomy for Acute appendicitis and periappendicitis with two areas of perforation with associated acute abscess. He has had abdominal bloating. he admits to flatus today. CT today with Gastric and small bowel dilatation diffusely most consistent with adynamic ileus. PMH: PMH: PMH/PSH: Appendectomy fr appendicitis - Cecum and terminal ileum with chronic serositis. - Adenomatous polyp, cecum, 0.5 cm. - Foreign body consistent with possible fruit pit. Social History: Smoke: No ALCOHOL: rare Drugs: None ROS: GEN: Denies fevers, chills, sweats HEENT: Denies blurred vision, sore throat CV: Denies chest pain RESP: Denies shortness of air, cough GI: Per HPI : Denies hematuria, dysuria ENDO: Denies weight changes NEURO: Denies confusion, dizziness MSK: Denies weakness, joint pain/swelling SKIN: Denies jaundice, pruritus VItals: Vitals: Vital Signs Date Time Temp Pulse Resp B/P (MAP) Pulse Ox O2 Delivery O2 Flow Rate FiO2 07/05/19 13:35 Room Air 07/05/19 11:00 97.6 73 18 154/87 (109) 94 97.6 07/04/19 21:15 2.0 Labs: Labs: Laboratory Tests Test 07/05/19 05:40 White Blood Count 14.2 x10^3/uL (4.0-11.0) Red Blood Count 3.93 x10^6/uL (4.30-5.70) Hemoglobin 11.7 g/dL (13.0-17.5) Hematocrit 35.4 % (39.0-53.0) Mean Corpuscular Volume 90 fL (79-100) Mean Corpuscular Hemoglobin 30 pg (25-35) Mean Corpuscular Hemoglobin Concent 33 g/dL (31-37) Red Cell Distribution Width 14.3 % (11.5-14.5) Platelet Count 625 x10^3/uL (140-400) Neutrophils (%) (Auto) 81 % (31-73) Lymphocytes (%) (Auto) 9 % (24-48) Monocytes (%) (Auto) 9 % (0-9) Eosinophils (%) (Auto) 1 % (0-3) Basophils (%) (Auto) 0 % (0-3) Neutrophils # (Auto) 11.5 x10^3/uL (1.8-7.7) Lymphocytes # (Auto) 1.3 x10^3/uL (1.0-4.8) Monocytes # (Auto) 1.3 x10^3/uL (0.0-1.1) Eosinophils # (Auto) 0.1 x10^3/uL (0.0-0.7) Basophils # (Auto) 0.0 x10^3/uL (0.0-0.2) Sodium Level 139 mmol/L (136-145) Potassium Level 4.4 mmol/L (3.5-5.1) Chloride Level 100 mmol/L (98-107) Carbon Dioxide Level 35 mmol/L (21-32) Anion Gap 4 (6-14) Blood Urea Nitrogen 95 mg/dL (8-26) Creatinine 1.7 mg/dL (0.7-1.3) Estimated GFR (Cockcroft-Gault) 40.7 Glucose Level 131 mg/dL (70-99) Calcium Level 8.5 mg/dL (8.5-10.1) Imaging: Imaging: PROCEDURE: CT ABD PEL W/ORAL CONTRST ONLY Noncontrast CT scan of the abdomen and pelvis compared to similar exam dated June 28, 2019 for bloating, status post right colon pathology. TECHNIQUE: Contiguous helical 5 mm axial images are obtained from the apex of diaphragm to the pelvic floor. Sagittal and coronal reformations are evaluated. FINDINGS: There is a tiny stable pleural effusion on the right, and there is a new small effusion on the left. Atelectasis or infiltrate in the left lung base is new as well. There is contrast within the distal esophagus. The stomach is markedly distended and there are air and fluid-filled loops of small bowel diffusely, with no transition point to suggest bowel obstruction. This likely represents adynamic ileus. There is contrast within a decompressed cecum and ascending colon, and there is some air distributed throughout the remainder of the colon to the level the rectum. There are postsurgical changes of an open laparotomy, and there is a new drain in the right lower quadrant of the abdomen. The previously seen. Cecal fluid collection is resolved, with only a trace residual fluid pocket measuring 1.5 x 2.4 cm. The urinary bladder is fluid distended and grossly unremarkable. No abdominal ascites is seen. No suspicious pelvic, retroperitoneal, or mesenteric adenopathy is evident. The gallbladder is fluid distended and there is at least one small dependent gallstone identified. No pericholecystic fluid. Evaluation of the solid organs of the abdomen is limited by lack of IV contrast, however no morphologic anomalies of the liver, pancreas, bilateral adrenal glands, spleen, or left kidney are identified. There is a partially exophytic cystic abnormality involving the inferior pole the right kidney which is incompletely evaluated on this noncontrast exam. Consider renal ultrasound on elective basis for further evaluation. There is straightening of the normal lumbar lordosis and there is grade 1 anterolisthesis of L4 and L5. There are bilateral pars defects at this level. There is been posterior decompression at L5 as well. No suspicious osteoblastic or osteolytic bone lesions are identified. IMPRESSION: 1. New small left pleural effusion and new atelectasis or infiltrate in the left lung base. 2. Gastric and small bowel dilatation diffusely most consistent with adynamic ileus. This patient may benefit from gastric decompression with an NG tube. 3. Interval laparotomy with evacuation of a right lower quadrant abscess, and placement of a percutaneous drain. There is a trace residual fluid pocket measuring 1.5 x 2.4 cm, lying immediately adjacent to the percutaneous drain. 4. Cholelithiasis without CT evidence of acute cholecystitis. 5. Exophytic right renal cyst, incompletely evaluated on this noncontrast exam. Consider further evaluation with elective renal ultrasound for definitive assessment. 6. 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 PQRS Compliance Statement: One or more of the following individualized dose reduction techniques were utilized for this examination: 1. Automated exposure control 2. Adjustment of the mA and/or kV according to patient size 3. Use of iterative reconstruction technique Electronically signed by: Den Billings MD (07/05/2019 2:06 PM) [facility] DICTATED and SIGNED BY: DEN BILLINGS MD DATE: 07/05/19 140 PE: GEN: NAD HEENT: Atraumatic, PERRLA LUNGS: CTAB HEART: RRR, no murmurs ABD:distended. No bowel sounds. NT EXTREMITY: No edema SKIN: No rashes, no jaundice NEURO/PSYCH: A & O 3 A/P: A/P: A) 1) Abd bloating 2) Adynamic ileus 3) Perforated appendicitis s/p rigth hemicolectomy and appendectomy 4) Anemia 5) Tubular adenoma of cecum 6) chronic serositis in cecum and terminal ielum P) 1) Place NGT to IS 2) Relistor given multiple narcotics 3) Check KUB 4) Monitor SANDRA Torres MD Jul 05, 2019 15:13
[2019-07-05] MEDS ORDERED: METHYLNALTREXONE 12 MG/0.6 ML VIAL. SQ ONE (15:15)
[2019-07-05] MEDS: MORPHINE SULFATE 4 MG/ML VIAL. IV PRN ×2 (16:04→20:08)
--- NOTE | 2019-07-05 16:47 | RAD ---
KUB compared to similar examination from earlier the same day for NG tube placement. FINDINGS: There is an NG tube in the distal esophagus. Repositioning is recommended. Stomach is distended with gas and fluid. Gas-filled loops of small bowel are again noted. IMPRESSION: 1. Malpositioned enteric tube in the distal esophagus. Repositioning is recommended. Electronically signed by: Yaniv Mccann MD (07/05/2019 4:44 PM) [id number]
[2019-07-05 19:00] VITALS: BP 146/88
--- NOTE | 2019-07-05 19:54 | RAD ---
Examination: KUB History: NG tube placement reevaluation Comparison/Correlation: 07/05/2019 KUB exam performed at 4:27 PM Findings: Upright portable frontal view of the abdomen was obtained. Enteric tube is present within the left upper quadrant. Fluid level within the stomach is noted. Contrast within colon is noted. Gaseous distention of small bowel loops is identified. [place] are present involving the right lower midline region. Impression: Enteric tube terminates in the gastric fundal region. Distention of small bowel again seen. This probably represent ileus. Continued follow-up should be considered to exclude possibility of obstruction. Electronically signed by: Wolfgang Lowry MD (07/05/2019 7:50 PM) [id number]
[2019-07-05 23:00] VITALS: BP 122/69
[2019-07-05] MEDS: CIPROFLOXACIN 400MG PREMIX 200 ML IV SCH (23:17)
[2019-07-06 03:00] VITALS: BP 132/69
--- NOTE | 2019-07-06 05:43 | RAD ---
KUB INDICATION: NG tube placement. COMPARISON: 07/05/2019. FINDINGS: Enteric tube terminates within the stomach Persistent mildly distended small bowel. Oral contrast within the colon. No free air on this limited supine image. Limited view of the lower chest demonstrates no acute abnormality. No acute osseous abnormality. IMPRESSION: Enteric tube terminates within the stomach Electronically signed by: Andrea Garces MD (07/06/2019 5:40 AM) [facility]
[2019-07-06] MEDS: MORPHINE SULFATE 2 MG/ML VIAL. IV PRN (05:48)
[2019-07-06 06:31] LABS: BASO % 0 % (0-3); EOS # 0.1 x10^3/uL (0.0-0.7); EOS % 1 % (0-3); HEMATOCRIT 35.1 % (39.0-53.0); HEMOGLOBIN 11.8 g/dL (13.0-17.5); LYMPH # 1.2 x10^3/uL (1.0-4.8); LYMPH % 9 % (24-48); MEAN CORPUSCULAR HEMOGLOBIN 30 pg (25-35); MEAN CORPUSCULAR HGB CONC 34 g/dL (31-37); MEAN CORPUSCULAR VOLUME 89 fL (79-100); MONO # 1.1 x10^3/uL (0.0-1.1); MONO % 8 % (0-9); NEUT # 10.4 x10^3/uL (1.8-7.7); NEUT % 81 % (31-73); PLATELET COUNT 653 x10^3/uL (140-400); RED BLOOD COUNT 3.95 x10^6/uL (4.30-5.70); RED CELL DISTRIBUTION WIDTH 14.4 % (11.5-14.5); WHITE BLOOD COUNT 12.8 x10^3/uL (4.0-11.0)
[2019-07-06 06:51] LABS: CALCIUM 8.2 mg/dL (8.5-10.1); CREATININE 1.2 mg/dL (0.7-1.3); GFR 60.8; POTASSIUM 4.3 mmol/L (3.5-5.1)
[2019-07-06 07:00] VITALS: BP 138/82
[2019-07-06] MEDS: CIPROFLOXACIN 400MG PREMIX 200 ML IV SCH ×2 (08:32→20:16)
--- NOTE | 2019-07-06 09:51 | PDOC ---
SURGICAL PROGRESS NOTE Subjective feels better with NG asking for ice Vital Signs Vital Signs Date Time Temp Pulse Resp B/P (MAP) Pulse Ox O2 Delivery O2 Flow Rate FiO2 07/06/19 08:00 Room Air 07/06/19 07:00 97.6 78 16 138/82 (100) 93 97.6 I&O Intake and Output 07/06/19 07:00 Intake Total 20 ml Output Total 3125 ml Balance -3105 ml Intake Oral 20 ml Output Urine Total 0 ml Gastric Drainage Total 3100 ml Drainage Total 25 ml General: Alert, Oriented X3, Cooperative HEENT: Other (ng in place) Abdomen: Soft, Other (incision c/d/i, no erythema ) Labs Laboratory Tests Test 07/05/19 05:40 07/06/19 06:15 White Blood Count 14.2 x10^3/uL (4.0-11.0) 12.8 x10^3/uL (4.0-11.0) Red Blood Count 3.93 x10^6/uL (4.30-5.70) 3.95 x10^6/uL (4.30-5.70) Hemoglobin 11.7 g/dL (13.0-17.5) 11.8 g/dL (13.0-17.5) Hematocrit 35.4 % (39.0-53.0) 35.1 % (39.0-53.0) Mean Corpuscular Volume 90 fL (79-100) 89 fL (79-100) Mean Corpuscular Hemoglobin 30 pg (25-35) 30 pg (25-35) Mean Corpuscular Hemoglobin Concent 33 g/dL (31-37) 34 g/dL (31-37) Red Cell Distribution Width 14.3 % (11.5-14.5) 14.4 % (11.5-14.5) Platelet Count 625 x10^3/uL (140-400) 653 x10^3/uL (140-400) Neutrophils (%) (Auto) 81 % (31-73) 81 % (31-73) Lymphocytes (%) (Auto) 9 % (24-48) 9 % (24-48) Monocytes (%) (Auto) 9 % (0-9) 8 % (0-9) Eosinophils (%) (Auto) 1 % (0-3) 1 % (0-3) Basophils (%) (Auto) 0 % (0-3) 0 % (0-3) Neutrophils # (Auto) 11.5 x10^3/uL (1.8-7.7) 10.4 x10^3/uL (1.8-7.7) Lymphocytes # (Auto) 1.3 x10^3/uL (1.0-4.8) 1.2 x10^3/uL (1.0-4.8) Monocytes # (Auto) 1.3 x10^3/uL (0.0-1.1) 1.1 x10^3/uL (0.0-1.1) Eosinophils # (Auto) 0.1 x10^3/uL (0.0-0.7) 0.1 x10^3/uL (0.0-0.7) Basophils # (Auto) 0.0 x10^3/uL (0.0-0.2) 0.0 x10^3/uL (0.0-0.2) Sodium Level 139 mmol/L (136-145) 139 mmol/L (136-145) Potassium Level 4.4 mmol/L (3.5-5.1) 4.3 mmol/L (3.5-5.1) Chloride Level 100 mmol/L (98-107) 102 mmol/L (98-107) Carbon Dioxide Level 35 mmol/L (21-32) 33 mmol/L (21-32) Anion Gap 4 (6-14) 4 (6-14) Blood Urea Nitrogen 95 mg/dL (8-26) 58 mg/dL (8-26) Creatinine 1.7 mg/dL (0.7-1.3) 1.2 mg/dL (0.7-1.3) Estimated GFR (Cockcroft-Gault) 40.7 60.8 Glucose Level 131 mg/dL (70-99) 124 mg/dL (70-99) Calcium Level 8.5 mg/dL (8.5-10.1) 8.2 mg/dL (8.5-10.1) Laboratory Tests Test 07/06/19 06:15 White Blood Count 12.8 x10^3/uL (4.0-11.0) Red Blood Count 3.95 x10^6/uL (4.30-5.70) Hemoglobin 11.8 g/dL (13.0-17.5) Hematocrit 35.1 % (39.0-53.0) Mean Corpuscular Volume 89 fL (79-100) Mean Corpuscular Hemoglobin 30 pg (25-35) Mean Corpuscular Hemoglobin Concent 34 g/dL (31-37) Red Cell Distribution Width 14.4 % (11.5-14.5) Platelet Count 653 x10^3/uL (140-400) Neutrophils (%) (Auto) 81 % (31-73) Lymphocytes (%) (Auto) 9 % (24-48) Monocytes (%) (Auto) 8 % (0-9) Eosinophils (%) (Auto) 1 % (0-3) Basophils (%) (Auto) 0 % (0-3) Neutrophils # (Auto) 10.4 x10^3/uL (1.8-7.7) Lymphocytes # (Auto) 1.2 x10^3/uL (1.0-4.8) Monocytes # (Auto) 1.1 x10^3/uL (0.0-1.1) Eosinophils # (Auto) 0.1 x10^3/uL (0.0-0.7) Basophils # (Auto) 0.0 x10^3/uL (0.0-0.2) Sodium Level 139 mmol/L (136-145) Potassium Level 4.3 mmol/L (3.5-5.1) Chloride Level 102 mmol/L (98-107) Carbon Dioxide Level 33 mmol/L (21-32) Anion Gap 4 (6-14) Blood Urea Nitrogen 58 mg/dL (8-26) Creatinine 1.2 mg/dL (0.7-1.3) Estimated GFR (Cockcroft-Gault) 60.8 Glucose Level 124 mg/dL (70-99) Calcium Level 8.2 mg/dL (8.5-10.1) Problem List Problems Medical Problems: (1) Acute abdomen Status: Acute (2) Acute renal insufficiency Status: Acute (3) Intra-abdominal abscess Status: Acute (4) Severe sepsis Status: Acute Assessment/Plan ileus continue ng today SONIA PEACE APRN Jul 06, 2019 09:51
[2019-07-06 11:00] VITALS: BP 140/74
--- NOTE | 2019-07-06 14:14 | PDOC ---
Subjective: Subjective: 4 liters out once NGT placed Objective: Vital Signs: Vital Signs Date Time Temp Pulse Resp B/P (MAP) Pulse Ox O2 Delivery O2 Flow Rate FiO2 07/06/19 08:00 Room Air 07/06/19 07:00 97.6 78 16 138/82 (100) 93 97.6 Labs: Laboratory Tests Test 07/06/19 06:15 White Blood Count 12.8 x10^3/uL (4.0-11.0) Red Blood Count 3.95 x10^6/uL (4.30-5.70) Hemoglobin 11.8 g/dL (13.0-17.5) Hematocrit 35.1 % (39.0-53.0) Mean Corpuscular Volume 89 fL (79-100) Mean Corpuscular Hemoglobin 30 pg (25-35) Mean Corpuscular Hemoglobin Concent 34 g/dL (31-37) Red Cell Distribution Width 14.4 % (11.5-14.5) Platelet Count 653 x10^3/uL (140-400) Neutrophils (%) (Auto) 81 % (31-73) Lymphocytes (%) (Auto) 9 % (24-48) Monocytes (%) (Auto) 8 % (0-9) Eosinophils (%) (Auto) 1 % (0-3) Basophils (%) (Auto) 0 % (0-3) Neutrophils # (Auto) 10.4 x10^3/uL (1.8-7.7) Lymphocytes # (Auto) 1.2 x10^3/uL (1.0-4.8) Monocytes # (Auto) 1.1 x10^3/uL (0.0-1.1) Eosinophils # (Auto) 0.1 x10^3/uL (0.0-0.7) Basophils # (Auto) 0.0 x10^3/uL (0.0-0.2) Sodium Level 139 mmol/L (136-145) Potassium Level 4.3 mmol/L (3.5-5.1) Chloride Level 102 mmol/L (98-107) Carbon Dioxide Level 33 mmol/L (21-32) Anion Gap 4 (6-14) Blood Urea Nitrogen 58 mg/dL (8-26) Creatinine 1.2 mg/dL (0.7-1.3) Estimated GFR (Cockcroft-Gault) 60.8 Glucose Level 124 mg/dL (70-99) Calcium Level 8.2 mg/dL (8.5-10.1) Physical Exam: Physical Exam: GEN: NAD HEENT: NGT in place CV: S1S2 without murmurs, rubs, or gallops RESP: CTAB without wheezing, rhonchi, or crackles ABD: Soft. Nontender. 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
[2019-07-06] MEDS: AMINO AC 3%/ELECTROLYTE/GLYCER 1,000 ML IV SCH ×2 (14:20→21:03)
[2019-07-06] MEDS: ENOXAPARIN 40 MG/0.4 ML SYRINGE. SQ SCH (14:22)
[2019-07-06 15:00] VITALS: BP 129/72
[2019-07-06 19:00] VITALS: BP 124/77
--- NOTE | 2019-07-06 19:10 | RAD ---
Single view abdomen dated 07/06/2019. Comparison made to 07/06/2019. Clinical indication: Follow-up ileus. FINDINGS: 2 supine portable images submitted. There are mildly dilated loops of small bowel with contrast material throughout the colon, unchanged from prior study. NG tube tip coiled at the gastric fundus, unchanged. There are midline surgical kojo. No apparent pneumoperitoneum on this supine exam. There is a surgical drain of the right abdomen. IMPRESSION: Mildly dilated loops of small bowel, not significantly changed from prior study, likely postoperative ileus. Electronically signed by: Karl Mart MD (07/06/2019 7:07 PM) [facility]
[2019-07-06 23:00] VITALS: BP 105/69
[2019-07-07 03:00] VITALS: BP 150/77
[2019-07-07 06:59] LABS: BASO % 0 % (0-3); EOS # 0.1 x10^3/uL (0.0-0.7); EOS % 1 % (0-3); HEMATOCRIT 34.9 % (39.0-53.0); HEMOGLOBIN 11.5 g/dL (13.0-17.5); LYMPH # 1.2 x10^3/uL (1.0-4.8); LYMPH % 9 % (24-48); MEAN CORPUSCULAR HEMOGLOBIN 30 pg (25-35); MEAN CORPUSCULAR HGB CONC 33 g/dL (31-37); MEAN CORPUSCULAR VOLUME 90 fL (79-100); MONO # 0.8 x10^3/uL (0.0-1.1); MONO % 6 % (0-9); NEUT # 11.2 x10^3/uL (1.8-7.7); NEUT % 84 % (31-73); PLATELET COUNT 624 x10^3/uL (140-400); RED BLOOD COUNT 3.88 x10^6/uL (4.30-5.70); RED CELL DISTRIBUTION WIDTH 14.2 % (11.5-14.5); WHITE BLOOD COUNT 13.4 x10^3/uL (4.0-11.0)
[2019-07-07 07:00] VITALS: BP 142/64
[2019-07-07] MEDS: CIPROFLOXACIN 400MG PREMIX 200 ML IV SCH ×2 (08:24→21:45)
[2019-07-07 08:53] LABS: ALBUMIN 1.7 g/dL (3.4-5.0); CALCIUM 7.9 mg/dL (8.5-10.1); CREATININE 0.9 mg/dL (0.7-1.3); DIRECT BILIRUBIN 0.1 mg/dL (0.0-0.2); GFR 84.7; POTASSIUM 4.1 mmol/L (3.5-5.1); TOTAL BILIRUBIN 0.3 mg/dL (0.2-1.0); TOTAL PROTEIN 5.9 g/dL (6.4-8.2)
--- NOTE | 2019-07-07 09:31 | PDOC ---
PROGRESS NOTES Chief Complaint Chief Complaint Post-op laparotomy for perforated appendix and cecum Sepsis, resolving DEDRICK Abd pain and distention, post op ileus History of Present Illness History of Present Illness 4 L NGT output weekend HUNGRY VS stable and belly soft PLAN: \ Await GS and GI rounds BElly is soft, if minimal NGT to IS< might be able to start some diet NPO and iVF and PPI till the above round Dw him Vitals Vitals Vital Signs Date Time Temp Pulse Resp B/P (MAP) Pulse Ox O2 Delivery O2 Flow Rate FiO2 07/07/19 07:00 97.6 68 20 142/64 (90) 96 Room Air 97.6 Physical Exam General: Alert, Oriented X3, Cooperative Heart: Regular rate, Normal S1, Normal S2, No murmurs Lungs: Clear Abdomen: Soft, Other (incision c/d/i, no erythema ) Extremities: No clubbing, No cyanosis, No edema, Normal pulses, No tenderness/swelling Skin: No rashes, No breakdown, No significant lesion Labs LABS Laboratory Tests Test 07/07/19 06:30 White Blood Count 13.4 x10^3/uL (4.0-11.0) Red Blood Count 3.88 x10^6/uL (4.30-5.70) Hemoglobin 11.5 g/dL (13.0-17.5) Hematocrit 34.9 % (39.0-53.0) Mean Corpuscular Volume 90 fL (79-100) Mean Corpuscular Hemoglobin 30 pg (25-35) Mean Corpuscular Hemoglobin Concent 33 g/dL (31-37) Red Cell Distribution Width 14.2 % (11.5-14.5) Platelet Count 624 x10^3/uL (140-400) Neutrophils (%) (Auto) 84 % (31-73) Lymphocytes (%) (Auto) 9 % (24-48) Monocytes (%) (Auto) 6 % (0-9) Eosinophils (%) (Auto) 1 % (0-3) Basophils (%) (Auto) 0 % (0-3) Neutrophils # (Auto) 11.2 x10^3/uL (1.8-7.7) Lymphocytes # (Auto) 1.2 x10^3/uL (1.0-4.8) Monocytes # (Auto) 0.8 x10^3/uL (0.0-1.1) Eosinophils # (Auto) 0.1 x10^3/uL (0.0-0.7) Basophils # (Auto) 0.0 x10^3/uL (0.0-0.2) Sodium Level 137 mmol/L (136-145) Potassium Level 4.1 mmol/L (3.5-5.1) Chloride Level 102 mmol/L (98-107) Carbon Dioxide Level 29 mmol/L (21-32) Anion Gap 6 (6-14) Blood Urea Nitrogen 32 mg/dL (8-26) Creatinine 0.9 mg/dL (0.7-1.3) Estimated GFR (Cockcroft-Gault) 84.7 Glucose Level 107 mg/dL (70-99) Calcium Level 7.9 mg/dL (8.5-10.1) Total Bilirubin 0.3 mg/dL (0.2-1.0) Direct Bilirubin 0.1 mg/dL (0.0-0.2) Aspartate Amino Transf (AST/SGOT) 17 U/L (15-37) Alanine Aminotransferase (ALT/SGPT) 11 U/L (16-63) Alkaline Phosphatase 114 U/L (46-116) Total Protein 5.9 g/dL (6.4-8.2) Albumin 1.7 g/dL (3.4-5.0) Review of Systems Review of Systems neg 14 pt, hungry Assessment and Plan Assessmemt and Plan Problems Medical Problems: (1) Acute abdomen Status: Acute (2) Acute renal insufficiency Status: Acute (3) Intra-abdominal abscess Status: Acute (4) Severe sepsis Status: Acute Comment Review of Relevant I have reviewed the following items butch (where applicable) has been applied. Labs Laboratory Tests Test 07/06/19 06:15 07/07/19 06:30 White Blood Count 12.8 x10^3/uL (4.0-11.0) 13.4 x10^3/uL (4.0-11.0) Red Blood Count 3.95 x10^6/uL (4.30-5.70) 3.88 x10^6/uL (4.30-5.70) Hemoglobin 11.8 g/dL (13.0-17.5) 11.5 g/dL (13.0-17.5) Hematocrit 35.1 % (39.0-53.0) 34.9 % (39.0-53.0) Mean Corpuscular Volume 89 fL (79-100) 90 fL (79-100) Mean Corpuscular Hemoglobin 30 pg (25-35) 30 pg (25-35) Mean Corpuscular Hemoglobin Concent 34 g/dL (31-37) 33 g/dL (31-37) Red Cell Distribution Width 14.4 % (11.5-14.5) 14.2 % (11.5-14.5) Platelet Count 653 x10^3/uL (140-400) 624 x10^3/uL (140-400) Neutrophils (%) (Auto) 81 % (31-73) 84 % (31-73) Lymphocytes (%) (Auto) 9 % (24-48) 9 % (24-48) Monocytes (%) (Auto) 8 % (0-9) 6 % (0-9) Eosinophils (%) (Auto) 1 % (0-3) 1 % (0-3) Basophils (%) (Auto) 0 % (0-3) 0 % (0-3) Neutrophils # (Auto) 10.4 x10^3/uL (1.8-7.7) 11.2 x10^3/uL (1.8-7.7) Lymphocytes # (Auto) 1.2 x10^3/uL (1.0-4.8) 1.2 x10^3/uL (1.0-4.8) Monocytes # (Auto) 1.1 x10^3/uL (0.0-1.1) 0.8 x10^3/uL (0.0-1.1) Eosinophils # (Auto) 0.1 x10^3/uL (0.0-0.7) 0.1 x10^3/uL (0.0-0.7) Basophils # (Auto) 0.0 x10^3/uL (0.0-0.2) 0.0 x10^3/uL (0.0-0.2) Sodium Level 139 mmol/L (136-145) 137 mmol/L (136-145) Potassium Level 4.3 mmol/L (3.5-5.1) 4.1 mmol/L (3.5-5.1) Chloride Level 102 mmol/L (98-107) 102 mmol/L (98-107) Carbon Dioxide Level 33 mmol/L (21-32) 29 mmol/L (21-32) Anion Gap 4 (6-14) 6 (6-14) Blood Urea Nitrogen 58 mg/dL (8-26) 32 mg/dL (8-26) Creatinine 1.2 mg/dL (0.7-1.3) 0.9 mg/dL (0.7-1.3) Estimated GFR (Cockcroft-Gault) 60.8 84.7 Glucose Level 124 mg/dL (70-99) 107 mg/dL (70-99) Calcium Level 8.2 mg/dL (8.5-10.1) 7.9 mg/dL (8.5-10.1) Total Bilirubin 0.3 mg/dL (0.2-1.0) Direct Bilirubin 0.1 mg/dL (0.0-0.2) Aspartate Amino Transf (AST/SGOT) 17 U/L (15-37) Alanine Aminotransferase (ALT/SGPT) 11 U/L (16-63) Alkaline Phosphatase 114 U/L (46-116) Total Protein 5.9 g/dL (6.4-8.2) Albumin 1.7 g/dL (3.4-5.0) Laboratory Tests Test 07/07/19 06:30 White Blood Count 13.4 x10^3/uL (4.0-11.0) Red Blood Count 3.88 x10^6/uL (4.30-5.70) Hemoglobin 11.5 g/dL (13.0-17.5) Hematocrit 34.9 % (39.0-53.0) Mean Corpuscular Volume 90 fL (79-100) Mean Corpuscular Hemoglobin 30 pg (25-35) Mean Corpuscular Hemoglobin Concent 33 g/dL (31-37) Red Cell Distribution Width 14.2 % (11.5-14.5) Platelet Count 624 x10^3/uL (140-400) Neutrophils (%) (Auto) 84 % (31-73) Lymphocytes (%) (Auto) 9 % (24-48) Monocytes (%) (Auto) 6 % (0-9) Eosinophils (%) (Auto) 1 % (0-3) Basophils (%) (Auto) 0 % (0-3) Neutrophils # (Auto) 11.2 x10^3/uL (1.8-7.7) Lymphocytes # (Auto) 1.2 x10^3/uL (1.0-4.8) Monocytes # (Auto) 0.8 x10^3/uL (0.0-1.1) Eosinophils # (Auto) 0.1 x10^3/uL (0.0-0.7) Basophils # (Auto) 0.0 x10^3/uL (0.0-0.2) Sodium Level 137 mmol/L (136-145) Potassium Level 4.1 mmol/L (3.5-5.1) Chloride Level 102 mmol/L (98-107) Carbon Dioxide Level 29 mmol/L (21-32) Anion Gap 6 (6-14) Blood Urea Nitrogen 32 mg/dL (8-26) Creatinine 0.9 mg/dL (0.7-1.3) Estimated GFR (Cockcroft-Gault) 84.7 Glucose Level 107 mg/dL (70-99) Calcium Level 7.9 mg/dL (8.5-10.1) Total Bilirubin 0.3 mg/dL (0.2-1.0) Direct Bilirubin 0.1 mg/dL (0.0-0.2) Aspartate Amino Transf (AST/SGOT) 17 U/L (15-37) Alanine Aminotransferase (ALT/SGPT) 11 U/L (16-63) Alkaline Phosphatase 114 U/L (46-116) Total Protein 5.9 g/dL (6.4-8.2) Albumin 1.7 g/dL (3.4-5.0) Microbiology 06/28/19 Anaerobic/Aerobic Culture - Final, Complete 06/28/19 Anaerobic Culture Result 1 (JOANN) - Final, Complete 06/28/19 Aerobic Culture - Final, Complete 06/28/19 Aerobic Culture Result 1 (JOANN) - Final, Complete 06/28/19 Gram Stain - Final, Complete 06/28/19 Gram Stain Result 1 (JOANN) - Final, Complete 06/28/19 Gram Stain Result 2 (JOANN) - Final, Complete 06/28/19 Blood Culture - Final, Complete NO GROWTH AFTER 5 DAYS 06/28/19 Urine Culture - Final, Complete 06/28/19 Urine Culture Result 1 (JOANN) - Final, Complete Medications Current Medications Sodium Chloride 1,000 ml @ 1,000 mls/hr 1X ONCE IV Last administered on 06/28/19at 14:59; Start 06/28/19 at 15:00; Stop 06/28/19 at 15:59; Status DC Fentanyl Citrate (Fentanyl 2ml Vial) 50 mcg 1X ONCE IVP Last administered on 06/28/19at 15:00; Start 06/28/19 at 15:00; Stop 06/28/19 at 15:01; Status DC Ondansetron HCl (Zofran) 4 mg 1X ONCE IV Last administered on 06/28/19 14:59; Start 06/28/19 at 15:00; Stop 06/28/19 at 15:01; Status DC Sodium Chloride 1,000 ml @ 1,000 mls/hr 1X ONCE IV Last administered on 06/28/19at 16:32; Start 06/28/19 at 15:15; Stop 06/28/19 at 16:14; Status DC Piperacillin Sod/ Tazobactam Sod 3.375 gm/Sodium Chloride 50 ml @ 100 mls/hr 1X ONCE IV Last administered on 06/28/19at 15:20; Start 06/28/19 at 15:15; Stop 06/28/19 at 15:44; Status DC Vancomycin HCl 250 ml @ 250 mls/hr 1X ONCE IV Last administered on 06/28/19at 16:29; Start 06/28/19 at 15:15; Stop 06/28/19 at 16:14; Status DC Iohexol (Omnipaque 240 Mg/ml) 50 ml 1X ONCE IV Last administered on 06/28/19at 15:20; Start 06/28/19 at 15:45; Stop 06/28/19 at 15:46; Status DC Info (CONTRAST GIVEN -- Rx MONITORING) 1 each PRN DAILY PRN MC SEE COMMENTS; Start 06/28/19 at 15:45; Stop 06/30/19 at 15:44; Status DC Sodium Chloride 1,000 ml @ 150 mls/hr Q6H40M IV Last administered on 06/29/19at 14:48; Start 06/28/19 at 16:30; Stop 06/29/19 at 16:29; Status DC Propofol 20 ml @ As Directed STK-MED ONCE IV ; Start 06/28/19 at 16:46; Stop 06/28/19 at 16:46; Status DC Lidocaine HCl (Lidocaine Pf 2% Vial) 5 ml STK-MED ONCE .ROUTE ; Start 06/28/19 at 16:46; Stop 06/28/19 at 16:46; Status DC Fentanyl Citrate (Fentanyl 2ml Vial) 100 mcg STK-MED ONCE .ROUTE ; Start 06/28/19 at 16:46; Stop 06/28/19 at 16:46; Status DC Succinylcholine Chloride (Anectine) 200 mg STK-MED ONCE .ROUTE ; Start 06/28/19 at 16:46; Stop 06/28/19 at 16:46; Status DC Rocuronium Marty (Zemuron) 50 mg STK-MED ONCE .ROUTE ; Start 06/28/19 at 16:46; Stop 06/28/19 at 16:46; Status DC Fentanyl Citrate (Fentanyl 2ml Vial) 50 mcg 1X ONCE IVP Last administered on 06/28/19at 16:49; Start 06/28/19 at 17:00; Stop 06/28/19 at 17:01; Status DC Bupivacaine HCl/ Epinephrine Bitart (Sensorcaine-Epi 0.25%-1:[id number] Mpf) 30 ml 1X ONCE INJ Last administered on 06/28/19at 17:56; Start 06/28/19 at 18:00; Stop 06/28/19 at 18:01; Status DC Ondansetron HCl (Zofran) 4 mg STK-MED ONCE .ROUTE ; Start 06/28/19 at 17:52; Stop 06/28/19 at 17:53; Status DC Phenylephrine HCl (PHENYLEPHRINE in 0.9% NACL PF) 1 mg STK-MED ONCE IV ; Start 06/28/19 at 17:52; Stop 06/28/19 at 17:53; Status DC Dexamethasone Sodium Phosphate (Decadron) 4 mg STK-MED ONCE .ROUTE ; Start 06/28/19 at 17:52; Stop 06/28/19 at 17:53; Status DC Neostigmine Methylsulfate (Neostigmine Methylsulfate) 5 mg STK-MED ONCE .ROUTE ; Start 06/28/19 at 18:04; Stop 06/28/19 at 18:05; Status DC Glycopyrrolate (Robinul) 1 mg STK-MED ONCE .ROUTE ; Start 06/28/19 at 18:05; Stop 06/28/19 at 18:05; Status DC Ondansetron HCl (Zofran) 4 mg PRN Q6HRS PRN IV NAUSEA/VOMITING Last administered on 06/28/19at 22:40; Start 06/28/19 at 18:30; Stop 06/29/19 at 18:29; Status DC Fentanyl Citrate (Fentanyl 2ml Vial) 25 mcg PRN Q5MIN PRN IV MILD PAIN 1-3; Start 06/28/19 at 18:30; Stop 06/29/19 at 09:27; Status DC Fentanyl Citrate (Fentanyl 2ml Vial) 50 mcg PRN Q5MIN PRN IV MODERATE TO SEVERE PAIN Last administered on 06/28/19at 20:38; Start 06/28/19 at 18:30; Stop 06/29/19 at 09:27; Status DC Morphine Sulfate (Morphine Sulfate) 1 mg PRN Q10MIN PRN IV SEVERE PAIN 7-10; Start 06/28/19 at 18:30; Stop 06/29/19 at 09:27; Status DC Ringer's Solution 1,000 ml @ 30 mls/hr Q24H IV Last administered on 06/28/19at 20:10; Start 06/28/19 at 18:22; Stop 06/29/19 at 06:21; Status DC Hydromorphone HCl (Dilaudid) 0.5 mg PRN Q10MIN PRN IV SEV PAIN, Second choice Last administered on 06/29/19at 04:56; Start 06/28/19 at 18:30; Stop 06/29/19 at 09:27; Status DC Prochlorperazine Edisylate (Compazine) 5 mg PACU PRN PRN IV NAUSEA, MRX1; Start 06/28/19 at 18:30; Stop 06/29/19 at 18:29; Status DC Sodium Chloride (Normal Saline Flush) 3 ml QSHIFT PRN IV AFTER MEDS AND BLOOD DRAWS; Start 06/28/19 at 19:45 Morphine Sulfate (Morphine Sulfate) 2 mg PRN Q3HRS PRN IV MILD PAIN 1-3 Last ad ministered on 07/06/19at 05:48; Start 06/28/19 at 19:45 Oxycodone/ Acetaminophen (Percocet 5/325) 1 tab PRN Q4HRS PRN PO MILD PAIN, 1ST CHOICE Last administered on 07/02/19at 16:49; Start 06/28/19 at 19:45 Oxycodone/ Acetaminophen (Percocet 5/325) 2 tab PRN Q4HRS PRN PO MODERATE PAIN, SEVERE PAIN Last administered on 06/29/19at 08:39; Start 06/28/19 at 19:45 Ondansetron HCl (Zofran) 4 mg PRN Q6HRS PRN IV NAUSEA, 1ST CHOICE Last administered on 07/04/19 11:25; Start 06/28/19 at 19:45 Dextrose/Lactated Ringer's 1,000 ml @ 150 mls/hr Q6H40M IV Last administered on 06/29/19at 04:56; Start 06/28/19 at 19:45; Stop 06/29/19 at 07:26; Status DC Metronidazole 100 ml @ 100 mls/hr Q8HRS IV Last administered on 07/07/19 06:15; Start 06/28/19 at 21:00 Fentanyl Citrate (Fentanyl 2ml Vial) 100 mcg STK-MED ONCE .ROUTE ; Start 06/28/19 at 20:02; Stop 06/28/19 at 20:02; Status DC Fentanyl Citrate (Fentanyl 2ml Vial) 100 mcg STK-MED ONCE .ROUTE ; Start 06/28/19 at 20:27; Stop 06/28/19 at 20:27; Status DC Calcium Carbonate/ Glycine (Tums) 500 mg PRN AFTMEALHC PRN PO INDIGESTION; Start 06/29/19 at 07:30 Temazepam (Restoril) 7.5 mg PRN QHS PRN PO INSOMNIA; Start 06/29/19 at 07:30 Ketorolac Tromethamine (Toradol 15mg Vial) 15 mg Q6HRS IVP Last administered on 07/04/19 06:07; Start 06/29/19 at 10:30; Stop 07/04/19 at 10:29; Status DC Enoxaparin Sodium (Lovenox 40mg Syringe) 40 mg Q24H SQ Last administered on 07/06/19at 14:22; Start 06/30/19 at 12:00 Amino Acids/ Glycerin/ Electrolytes 1,000 ml @ 80 mls/hr [id number] IV Last administered on 07/06/19at 21:03; Start 06/30/19 at 11:00 Sodium Chloride 1,000 ml @ 150 mls/hr 1X ONCE IV Last administered on 07/02/19at 11:42; Start 07/02/19 at 11:00; Stop 07/02/19 at 17:39; Status DC Hydralazine HCl (Apresoline Inj) 10 mg PRN Q4HRS PRN IVP ELEVATED BP, SEE COMMENTS Last administered on 07/02/19at 21:52; Start 07/02/19 at 21:45 Saliva Substitute (Biotene Moisturizing Mouth) 2 spray PRN Q15MIN PRN PO DRY MOUTH Last administered on 07/03/19at 17:51; Start 07/03/19 at 11:45 Saliva Substitute (Biotene Moisturizing Mouth) 2 spray PRN Q15MIN PRN PO DRY MOUTH; Start 07/03/19 at 11:45; Status UNV Vancomycin HCl 2 gm/Sodium Chloride 500 ml @ 250 mls/hr 1X ONCE IV ; Start 07/03/19 at 15:00; Stop 07/03/19 at 16:59; Status Cancel Ciprofloxacin (Cipro) 500 mg BID PO ; Start 07/04/19 at 21:00; Stop 07/05/19 at 23:11; Status DC Iohexol (Omnipaque 240 Mg/ml) 50 ml 1X ONCE PO Last administered on 07/05/19at 10:40; Start 07/05/19 at 12:45; Stop 07/05/19 at 12:55; Status DC Info (CONTRAST GIVEN -- Rx MONITORING) 1 each PRN DAILY PRN MC SEE COMMENTS; Start 07/05/19 at 13:00; Stop 07/07/19 at 12:59 Morphine Sulfate (Morphine Sulfate) 4 mg PRN Q3HRS PRN IV MODERATE TO SEVERE PAIN Last administered on 07/05/19at 20:08; Start 07/05/19 at 13:30 Fentanyl Citrate (Fentanyl 2ml Vial) 75 mcg 1X ONCE IVP Last administered on 07/05/19at 13:35; Start 07/05/19 at 13:30; Stop 07/05/19 at 13:32; Status DC Methylnaltrexone Marty (Relistor) 12 mg 1X ONCE SQ Last administered on 07/05/19at 16:04; Start 07/05/19 at 15:15; Stop 07/05/19 at 15:16; Status DC Ciprofloxacin/ Dextrose 200 ml @ 200 mls/hr Q12HR IV Last administered on 07/07/19at 08:24; Start 07/05/19 at 23:30 Active Scripts Active Reported Lisinopril 40 Mg Tablet 1 Tab PO DAILY Vitals/I & O Vital Sign - Last 24 Hours 07/06/19 07/06/19 07/06/19 07/06/19 11:00 15:00 19:00 20:15 Temp 97.8 97.6 97.3 97.8 97.6 97.3 Pulse 76 92 83 Resp 18 18 16 B/P (MAP) 140/74 (96) 129/72 (91) 124/77 (93) Pulse Ox 96 96 95 O2 Delivery Room Air Room Air Room Air 07/06/19 07/07/19 07/07/19 23:00 03:00 07:00 Temp 97.9 97.7 97.6 97.9 97.7 97.6 Pulse 71 69 68 Resp 16 16 20 B/P (MAP) 105/69 (81) 150/77 (101) 142/64 (90) Pulse Ox 97 95 96 O2 Delivery Room Air Room Air Room Air l Intake and Output 07/06/19 07/06/19 07/07/19 15:00 23:00 07:00 Intake Total 0 ml Output Total 600 ml 800 ml 1340 ml Balance -600 ml -800 ml -1340 ml EILEEN PETTY MD Jul 07, 2019 09:31
[2019-07-07 11:00] VITALS: BP 138/65
--- NOTE | 2019-07-07 11:07 | PDOC ---
SONIA PEACE [employer] LEGAL ASSISTANT 07/07/19 1107: SURGICAL PROGRESS NOTE Subjective resting some flatus hungry Vital Signs Vital Signs Date Time Temp Pulse Resp B/P (MAP) Pulse Ox O2 Delivery O2 Flow Rate FiO2 07/07/19 08:00 Room Air 07/07/19 07:00 97.6 68 20 142/64 (90) 96 97.6 I&O Intake and Output 07/07/19 06:59 Intake Total 0 ml Output Total 2740 ml Balance -2740 ml Intake Oral 0 ml Output Urine Total 400 ml Gastric Drainage Total 1700 ml Drainage Total 40 ml Other 600 ml # Voids 1 General: Alert, Oriented X3, Cooperative HEENT: Other (NG in place) Abdomen: Soft, Other (incision c/d/i, no erythema ) Labs Laboratory Tests Test 07/06/19 06:15 07/07/19 06:30 White Blood Count 12.8 x10^3/uL (4.0-11.0) 13.4 x10^3/uL (4.0-11.0) Red Blood Count 3.95 x10^6/uL (4.30-5.70) 3.88 x10^6/uL (4.30-5.70) Hemoglobin 11.8 g/dL (13.0-17.5) 11.5 g/dL (13.0-17.5) Hematocrit 35.1 % (39.0-53.0) 34.9 % (39.0-53.0) Mean Corpuscular Volume 89 fL (79-100) 90 fL (79-100) Mean Corpuscular Hemoglobin 30 pg (25-35) 30 pg (25-35) Mean Corpuscular Hemoglobin Concent 34 g/dL (31-37) 33 g/dL (31-37) Red Cell Distribution Width 14.4 % (11.5-14.5) 14.2 % (11.5-14.5) Platelet Count 653 x10^3/uL (140-400) 624 x10^3/uL (140-400) Neutrophils (%) (Auto) 81 % (31-73) 84 % (31-73) Lymphocytes (%) (Auto) 9 % (24-48) 9 % (24-48) Monocytes (%) (Auto) 8 % (0-9) 6 % (0-9) Eosinophils (%) (Auto) 1 % (0-3) 1 % (0-3) Basophils (%) (Auto) 0 % (0-3) 0 % (0-3) Neutrophils # (Auto) 10.4 x10^3/uL (1.8-7.7) 11.2 x10^3/uL (1.8-7.7) Lymphocytes # (Auto) 1.2 x10^3/uL (1.0-4.8) 1.2 x10^3/uL (1.0-4.8) Monocytes # (Auto) 1.1 x10^3/uL (0.0-1.1) 0.8 x10^3/uL (0.0-1.1) Eosinophils # (Auto) 0.1 x10^3/uL (0.0-0.7) 0.1 x10^3/uL (0.0-0.7) Basophils # (Auto) 0.0 x10^3/uL (0.0-0.2) 0.0 x10^3/uL (0.0-0.2) Sodium Level 139 mmol/L (136-145) 137 mmol/L (136-145) Potassium Level 4.3 mmol/L (3.5-5.1) 4.1 mmol/L (3.5-5.1) Chloride Level 102 mmol/L (98-107) 102 mmol/L (98-107) Carbon Dioxide Level 33 mmol/L (21-32) 29 mmol/L (21-32) Anion Gap 4 (6-14) 6 (6-14) Blood Urea Nitrogen 58 mg/dL (8-26) 32 mg/dL (8-26) Creatinine 1.2 mg/dL (0.7-1.3) 0.9 mg/dL (0.7-1.3) Estimated GFR (Cockcroft-Gault) 60.8 84.7 Glucose Level 124 mg/dL (70-99) 107 mg/dL (70-99) Calcium Level 8.2 mg/dL (8.5-10.1) 7.9 mg/dL (8.5-10.1) Total Bilirubin 0.3 mg/dL (0.2-1.0) Direct Bilirubin 0.1 mg/dL (0.0-0.2) Aspartate Amino Transf (AST/SGOT) 17 U/L (15-37) Alanine Aminotransferase (ALT/SGPT) 11 U/L (16-63) Alkaline Phosphatase 114 U/L (46-116) Total Protein 5.9 g/dL (6.4-8.2) Albumin 1.7 g/dL (3.4-5.0) Laboratory Tests Test 07/07/19 06:30 White Blood Count 13.4 x10^3/uL (4.0-11.0) Red Blood Count 3.88 x10^6/uL (4.30-5.70) Hemoglobin 11.5 g/dL (13.0-17.5) Hematocrit 34.9 % (39.0-53.0) Mean Corpuscular Volume 90 fL (79-100) Mean Corpuscular Hemoglobin 30 pg (25-35) Mean Corpuscular Hemoglobin Concent 33 g/dL (31-37) Red Cell Distribution Width 14.2 % (11.5-14.5) Platelet Count 624 x10^3/uL (140-400) Neutrophils (%) (Auto) 84 % (31-73) Lymphocytes (%) (Auto) 9 % (24-48) Monocytes (%) (Auto) 6 % (0-9) Eosinophils (%) (Auto) 1 % (0-3) Basophils (%) (Auto) 0 % (0-3) Neutrophils # (Auto) 11.2 x10^3/uL (1.8-7.7) Lymphocytes # (Auto) 1.2 x10^3/uL (1.0-4.8) Monocytes # (Auto) 0.8 x10^3/uL (0.0-1.1) Eosinophils # (Auto) 0.1 x10^3/uL (0.0-0.7) Basophils # (Auto) 0.0 x10^3/uL (0.0-0.2) Sodium Level 137 mmol/L (136-145) Potassium Level 4.1 mmol/L (3.5-5.1) Chloride Level 102 mmol/L (98-107) Carbon Dioxide Level 29 mmol/L (21-32) Anion Gap 6 (6-14) Blood Urea Nitrogen 32 mg/dL (8-26) Creatinine 0.9 mg/dL (0.7-1.3) Estimated GFR (Cockcroft-Gault) 84.7 Glucose Level 107 mg/dL (70-99) Calcium Level 7.9 mg/dL (8.5-10.1) Total Bilirubin 0.3 mg/dL (0.2-1.0) Direct Bilirubin 0.1 mg/dL (0.0-0.2) Aspartate Amino Transf (AST/SGOT) 17 U/L (15-37) Alanine Aminotransferase (ALT/SGPT) 11 U/L (16-63) Alkaline Phosphatase 114 U/L (46-116) Total Protein 5.9 g/dL (6.4-8.2) Albumin 1.7 g/dL (3.4-5.0) Problem List Problems Medical Problems: (1) Acute abdomen Status: Acute (2) Acute renal insufficiency Status: Acute (3) Intra-abdominal abscess Status: Acute (4) Severe sepsis Status: Acute Assessment/Plan ng output still high--will continue for now until improved bowel function ARELI OBRIEN MD 07/07/19 1850: SURGICAL PROGRESS NOTE Assessment/Plan Agree with Benita's assessment and plan. SONIA PEACE APRN Jul 07, 2019 11:07 ARELI OBRIEN MD Jul 07, 2019 18:50
--- NOTE | 2019-07-07 11:47 | PDOC ---
Subjective: Subjective: Denies pain, says passing gas. Objective: Objective: D/w nurse - significant NG output, pt report passing a little stool w/ flatus. Vital Signs: Vital Signs Date Time Temp Pulse Resp B/P (MAP) Pulse Ox O2 Delivery O2 Flow Rate FiO2 07/07/19 08:00 Room Air 07/07/19 07:00 97.6 68 20 142/64 (90) 96 97.6 Labs: Laboratory Tests Test 07/07/19 06:30 White Blood Count 13.4 x10^3/uL Red Blood Count 3.88 x10^6/uL Hemoglobin 11.5 g/dL Hematocrit 34.9 % Mean Corpuscular Volume 90 fL Mean Corpuscular Hemoglobin 30 pg Mean Corpuscular Hemoglobin Concent 33 g/dL Red Cell Distribution Width 14.2 % Platelet Count 624 x10^3/uL Neutrophils (%) (Auto) 84 % Lymphocytes (%) (Auto) 9 % Monocytes (%) (Auto) 6 % Eosinophils (%) (Auto) 1 % Basophils (%) (Auto) 0 % Neutrophils # (Auto) 11.2 x10^3/uL Lymphocytes # (Auto) 1.2 x10^3/uL Monocytes # (Auto) 0.8 x10^3/uL Eosinophils # (Auto) 0.1 x10^3/uL Basophils # (Auto) 0.0 x10^3/uL Sodium Level 137 mmol/L Potassium Level 4.1 mmol/L Chloride Level 102 mmol/L Carbon Dioxide Level 29 mmol/L Anion Gap 6 Blood Urea Nitrogen 32 mg/dL Creatinine 0.9 mg/dL Estimated GFR (Cockcroft-Gault) 84.7 Glucose Level 107 mg/dL Calcium Level 7.9 mg/dL Total Bilirubin 0.3 mg/dL Direct Bilirubin 0.1 mg/dL Aspartate Amino Transf (AST/SGOT) 17 U/L Alanine Aminotransferase (ALT/SGPT) 11 U/L Alkaline Phosphatase 114 U/L Total Protein 5.9 g/dL Albumin 1.7 g/dL Imaging: KUB 07/06 IMPRESSION: Mildly dilated loops of small bowel, not significantly changed from prior study, likely postoperative ileus. PE: GEN: NAD HEENT: NG dark. bilious ABD: S/ND/NT NEURO/PSYCH: A & O 3 A/P: Perforated appendix s/p right hemicolectomy and appendectomy Ileus TA of cecum - no previous colonoscopy Cholelithiasis -- Continue NG per surgery. Outpt colonoscopy. NICCI ROLON Jul 07, 2019 11:47
[2019-07-07] MEDS: ENOXAPARIN 40 MG/0.4 ML SYRINGE. SQ SCH (14:22)
--- NOTE | 2019-07-07 14:45 | NUR ---
SW following. Discussed with RN, NG tube placed again. Pt not ready to discharge. SW will continue to follow.
[2019-07-07 15:00] VITALS: BP 146/77
[2019-07-07] MEDS: AMINO AC 3%/ELECTROLYTE/GLYCER 1,000 ML IV SCH (17:40)
[2019-07-07 19:00] VITALS: BP 128/69
[2019-07-07] MEDS: MORPHINE SULFATE 4 MG/ML VIAL. IV PRN ×2 (19:07→22:52)
[2019-07-07 23:00] VITALS: BP 130/81
[2019-07-08 03:00] VITALS: BP 134/70
[2019-07-08] MEDS: AMINO AC 3%/ELECTROLYTE/GLYCER 1,000 ML IV SCH ×2 (05:49→21:58)
[2019-07-08] MEDS: MORPHINE SULFATE 4 MG/ML VIAL. IV PRN ×3 (05:50→21:59)
[2019-07-08 07:15] VITALS: BP 144/88
[2019-07-08] MEDS: CIPROFLOXACIN 400MG PREMIX 200 ML IV SCH ×2 (08:31→21:58)
--- NOTE | 2019-07-08 09:51 | PDOC ---
SONIA PEACE KRAFT DIGESTER OPERATOR 07/08/19 0951: SURGICAL PROGRESS NOTE Subjective + flatus NG still with high out put no stool Vital Signs Vital Signs Date Time Temp Pulse Resp B/P (MAP) Pulse Ox O2 Delivery O2 Flow Rate FiO2 07/08/19 07:15 97.7 69 18 144/88 (106) 95 Room Air 97.7 07/08/19 03:00 97.0 I&O Intake and Output 07/08/19 07:00 Output Total 1250 ml Balance -1250 ml Output Urine Total 1250 ml General: Alert, Cooperative HEENT: Other (ng in place) Abdomen: Soft, Other (nd, dressing dry) Labs Laboratory Tests Test 07/07/19 06:30 White Blood Count 13.4 x10^3/uL (4.0-11.0) Red Blood Count 3.88 x10^6/uL (4.30-5.70) Hemoglobin 11.5 g/dL (13.0-17.5) Hematocrit 34.9 % (39.0-53.0) Mean Corpuscular Volume 90 fL (79-100) Mean Corpuscular Hemoglobin 30 pg (25-35) Mean Corpuscular Hemoglobin Concent 33 g/dL (31-37) Red Cell Distribution Width 14.2 % (11.5-14.5) Platelet Count 624 x10^3/uL (140-400) Neutrophils (%) (Auto) 84 % (31-73) Lymphocytes (%) (Auto) 9 % (24-48) Monocytes (%) (Auto) 6 % (0-9) Eosinophils (%) (Auto) 1 % (0-3) Basophils (%) (Auto) 0 % (0-3) Neutrophils # (Auto) 11.2 x10^3/uL (1.8-7.7) Lymphocytes # (Auto) 1.2 x10^3/uL (1.0-4.8) Monocytes # (Auto) 0.8 x10^3/uL (0.0-1.1) Eosinophils # (Auto) 0.1 x10^3/uL (0.0-0.7) Basophils # (Auto) 0.0 x10^3/uL (0.0-0.2) Sodium Level 137 mmol/L (136-145) Potassium Level 4.1 mmol/L (3.5-5.1) Chloride Level 102 mmol/L (98-107) Carbon Dioxide Level 29 mmol/L (21-32) Anion Gap 6 (6-14) Blood Urea Nitrogen 32 mg/dL (8-26) Creatinine 0.9 mg/dL (0.7-1.3) Estimated GFR (Cockcroft-Gault) 84.7 Glucose Level 107 mg/dL (70-99) Calcium Level 7.9 mg/dL (8.5-10.1) Total Bilirubin 0.3 mg/dL (0.2-1.0) Direct Bilirubin 0.1 mg/dL (0.0-0.2) Aspartate Amino Transf (AST/SGOT) 17 U/L (15-37) Alanine Aminotransferase (ALT/SGPT) 11 U/L (16-63) Alkaline Phosphatase 114 U/L (46-116) Total Protein 5.9 g/dL (6.4-8.2) Albumin 1.7 g/dL (3.4-5.0) Problem List Problems Medical Problems: (1) Acute abdomen Status: Acute (2) Acute renal insufficiency Status: Acute (3) Intra-abdominal abscess Status: Acute (4) Severe sepsis Status: Acute Assessment/Plan will check xray--if improved, clamp NG ARELI OBRIEN MD 07/08/19 1442: SURGICAL PROGRESS NOTE Assessment/Plan Abdominal films show some improvement and is gaseous distention no evidence of obstruction we'll leave NG tube suction tonight plan on clamping in the a.m. agree with Jazmin assessment and plan SONAI PEACE APRN Jul 08, 2019 09:51 ARELI OBRIEN MD Jul 08, 2019 14:42
--- NOTE | 2019-07-08 10:32 | RAD ---
Acute abdominal series. 07/08/2019 9:50 AM Indication: Ileus Comparison Study: Abdominal radiograph, July 06, 2019 Discussion: Low lung volumes are noted. Mild right basilar atelectasis is seen. No pneumothorax or effusion is identified. Heart size is within normal limits. There is an enteric tube extending into the stomach. Enteric contrast is noted in the colon. Surgical drain in the right lower quadrant is seen. Staple line noted in the inferior abdominal midline with associated probable Caney drain. The bowel gas pattern is nonspecific and nonobstructive. Gaseous distention of the bowel has decreased in the interim. No acute osseous changes are seen. Extensive degenerative change and postsurgical change of the lumbosacral junction noted. IMPRESSION: 1. Enteric tube tip in the stomach 2. Surgical drainage, right abdomen. 3. Nonspecific nonobstructive bowel gas pattern. Less gaseous distention of the yesterday's exam. Electronically signed by: Kevon Sierra MD (07/08/2019 10:28 AM) [id number]
--- NOTE | 2019-07-08 10:52 | PDOC ---
PROGRESS NOTES Chief Complaint Chief Complaint Post-op laparotomy for perforated appendix and cecum Sepsis, resolving DEDRICK Abd pain and distention, post op ileus History of Present Illness History of Present Illness still draining signif amt NGT on IS BELly soft HUngry Otherwise he has no complaints ELytes good despite NPO for days bec of procalamine PLAN: NPO till NGT output decreases KEep PPN Doing fairly well BElly is soft, Vitals Vitals Vital Signs Date Time Temp Pulse Resp B/P (MAP) Pulse Ox O2 Delivery O2 Flow Rate FiO2 07/08/19 07:15 97.7 69 18 144/88 (106) 95 Room Air 97.7 07/08/19 03:00 97.0 Physical Exam General: Alert, Cooperative Heart: Regular rate, Normal S1, Normal S2, No murmurs Lungs: Clear Abdomen: Soft, Other (nd, dressing dry) Extremities: No clubbing, No cyanosis, No edema, Normal pulses, No tenderness/swelling Skin: No rashes, No breakdown, No significant lesion Review of Systems Review of Systems neg 14 pt system, hungry Assessment and Plan Assessmemt and Plan Problems Medical Problems: (1) Acute abdomen Status: Acute (2) Acute renal insufficiency Status: Acute (3) Intra-abdominal abscess Status: Acute (4) Severe sepsis Status: Acute Comment Review of Relevant I have reviewed the following items butch (where applicable) has been applied. Labs Laboratory Tests Test 07/07/19 06:30 White Blood Count 13.4 x10^3/uL (4.0-11.0) Red Blood Count 3.88 x10^6/uL (4.30-5.70) Hemoglobin 11.5 g/dL (13.0-17.5) Hematocrit 34.9 % (39.0-53.0) Mean Corpuscular Volume 90 fL (79-100) Mean Corpuscular Hemoglobin 30 pg (25-35) Mean Corpuscular Hemoglobin Concent 33 g/dL (31-37) Red Cell Distribution Width 14.2 % (11.5-14.5) Platelet Count 624 x10^3/uL (140-400) Neutrophils (%) (Auto) 84 % (31-73) Lymphocytes (%) (Auto) 9 % (24-48) Monocytes (%) (Auto) 6 % (0-9) Eosinophils (%) (Auto) 1 % (0-3) Basophils (%) (Auto) 0 % (0-3) Neutrophils # (Auto) 11.2 x10^3/uL (1.8-7.7) Lymphocytes # (Auto) 1.2 x10^3/uL (1.0-4.8) Monocytes # (Auto) 0.8 x10^3/uL (0.0-1.1) Eosinophils # (Auto) 0.1 x10^3/uL (0.0-0.7) Basophils # (Auto) 0.0 x10^3/uL (0.0-0.2) Sodium Level 137 mmol/L (136-145) Potassium Level 4.1 mmol/L (3.5-5.1) Chloride Level 102 mmol/L (98-107) Carbon Dioxide Level 29 mmol/L (21-32) Anion Gap 6 (6-14) Blood Urea Nitrogen 32 mg/dL (8-26) Creatinine 0.9 mg/dL (0.7-1.3) Estimated GFR (Cockcroft-Gault) 84.7 Glucose Level 107 mg/dL (70-99) Calcium Level 7.9 mg/dL (8.5-10.1) Total Bilirubin 0.3 mg/dL (0.2-1.0) Direct Bilirubin 0.1 mg/dL (0.0-0.2) Aspartate Amino Transf (AST/SGOT) 17 U/L (15-37) Alanine Aminotransferase (ALT/SGPT) 11 U/L (16-63) Alkaline Phosphatase 114 U/L (46-116) Total Protein 5.9 g/dL (6.4-8.2) Albumin 1.7 g/dL (3.4-5.0) Microbiology 06/28/19 Anaerobic/Aerobic Culture - Final, Complete 06/28/19 Anaerobic Culture Result 1 (JOANN) - Final, Complete 06/28/19 Aerobic Culture - Final, Complete 06/28/19 Aerobic Culture Result 1 (JOANN) - Final, Complete 06/28/19 Gram Stain - Final, Complete 06/28/19 Gram Stain Result 1 (JOANN) - Final, Complete 06/28/19 Gram Stain Result 2 (JOANN) - Final, Complete 06/28/19 Blood Culture - Final, Complete NO GROWTH AFTER 5 DAYS 06/28/19 Urine Culture - Final, Complete 06/28/19 Urine Culture Result 1 (JOANN) - Final, Complete Medications Current Medications Sodium Chloride 1,000 ml @ 1,000 mls/hr 1X ONCE IV Last administered on 06/28/19at 14:59; Start 06/28/19 at 15:00; Stop 06/28/19 at 15:59; Status DC Fentanyl Citrate (Fentanyl 2ml Vial) 50 mcg 1X ONCE IVP Last administered on 06/28/19at 15:00; Start 06/28/19 at 15:00; Stop 06/28/19 at 15:01; Status DC Ondansetron HCl (Zofran) 4 mg 1X ONCE IV Last administered on 06/28/19at 14:59; Start 06/28/19 at 15:00; Stop 06/28/19 at 15:01; Status DC Sodium Chloride 1,000 ml @ 1,000 mls/hr 1X ONCE IV Last administered on 06/28/19at 16:32; Start 06/28/19 at 15:15; Stop 06/28/19 at 16:14; Status DC Piperacillin Sod/ Tazobactam Sod 3.375 gm/Sodium Chloride 50 ml @ 100 mls/hr 1X ONCE IV Last administered on 06/28/19at 15:20; Start 06/28/19 at 15:15; Stop 06/28/19 at 15:44; Status DC Vancomycin HCl 250 ml @ 250 mls/hr 1X ONCE IV Last administered on 06/28/19at 16:29; Start 06/28/19 at 15:15; Stop 06/28/19 at 16:14; Status DC Iohexol (Omnipaque 240 Mg/ml) 50 ml 1X ONCE IV Last administered on 06/28/19at 15:20; Start 06/28/19 at 15:45; Stop 06/28/19 at 15:46; Status DC Info (CONTRAST GIVEN -- Rx MONITORING) 1 each PRN DAILY PRN MC SEE COMMENTS; Start 06/28/19 at 15:45; Stop 06/30/19 at 15:44; Status DC Sodium Chloride 1,000 ml @ 150 mls/hr Q6H40M IV Last administered on 06/29/19at 14:48; Start 06/28/19 at 16:30; Stop 06/29/19 at 16:29; Status DC Propofol 20 ml @ As Directed STK-MED ONCE IV ; Start 06/28/19 at 16:46; Stop 06/28/19 at 16:46; Status DC Lidocaine HCl (Lidocaine Pf 2% Vial) 5 ml STK-MED ONCE .ROUTE ; Start 06/28/19 at 16:46; Stop 06/28/19 at 16:46; Status DC Fentanyl Citrate (Fentanyl 2ml Vial) 100 mcg STK-MED ONCE .ROUTE ; Start 06/28/19 at 16:46; Stop 06/28/19 at 16:46; Status DC Succinylcholine Chloride (Anectine) 200 mg STK-MED ONCE .ROUTE ; Start 06/28/19 at 16:46; Stop 06/28/19 at 16:46; Status DC Rocuronium [place] (Zemuron) 50 mg STK-MED ONCE .ROUTE ; Start 06/28/19 at 1 6:46; Stop 06/28/19 at 16:46; Status DC Fentanyl Citrate (Fentanyl 2ml Vial) 50 mcg 1X ONCE IVP Last administered on 06/28/19at 16:49; Start 06/28/19 at 17:00; Stop 06/28/19 at 17:01; Status DC Bupivacaine HCl/ Epinephrine Bitart (Sensorcaine-Epi 0.25%-1:[id number] Mpf) 30 ml 1X ONCE INJ Last administered on 06/28/19at 17:56; Start 06/28/19 at 18:00; Stop 06/28/19 at 18:01; Status DC Ondansetron HCl (Zofran) 4 mg STK-MED ONCE .ROUTE ; Start 06/28/19 at 17:52; Stop 06/28/19 at 17:53; Status DC Phenylephrine HCl (PHENYLEPHRINE in 0.9% NACL PF) 1 mg STK-MED ONCE IV ; Start 06/28/19 at 17:52; Stop 06/28/19 at 17:53; Status DC Dexamethasone Sodium Phosphate (Decadron) 4 mg STK-MED ONCE .ROUTE ; Start 06/28/19 at 17:52; Stop 06/28/19 at 17:53; Status DC Neostigmine Methylsulfate (Neostigmine Methylsulfate) 5 mg STK-MED ONCE .ROUTE ; Start 06/28/19 at 18:04; Stop 06/28/19 at 18:05; Status DC Glycopyrrolate (Robinul) 1 mg STK-MED ONCE .ROUTE ; Start 06/28/19 at 18:05; Stop 06/28/19 at 18:05; Status DC Ondansetron HCl (Zofran) 4 mg PRN Q6HRS PRN IV NAUSEA/VOMITING Last administered on 06/28/19at 22:40; Start 06/28/19 at 18:30; Stop 06/29/19 at 18:29; Status DC Fentanyl Citrate (Fentanyl 2ml Vial) 25 mcg PRN Q5MIN PRN IV MILD PAIN 1-3; Start 06/28/19 at 18:30; Stop 06/29/19 at 09:27; Status DC Fentanyl Citrate (Fentanyl 2ml Vial) 50 mcg PRN Q5MIN PRN IV MODERATE TO SEVERE PAIN Last administered on 06/28/19at 20:38; Start 06/28/19 at 18:30; Stop 06/29/19 at 09:27; Status DC Morphine Sulfate (Morphine Sulfate) 1 mg PRN Q10MIN PRN IV SEVERE PAIN 7-10; Start 06/28/19 at 18:30; Stop 06/29/19 at 09:27; Status DC Ringer's Solution 1,000 ml @ 30 mls/hr Q24H IV Last administered on 06/28/19at 20:10; Start 06/28/19 at 18:22; Stop 06/29/19 at 06:21; Status DC Hydromorphone HCl (Dilaudid) 0.5 mg PRN Q10MIN PRN IV SEV PAIN, Second choice Last administered on 06/29/19at 04:56; Start 06/28/19 at 18:30; Stop 06/29/19 at 09:27; Status DC Prochlorperazine Edisylate (Compazine) 5 mg PACU PRN PRN IV NAUSEA, MRX1; Start 06/28/19 at 18:30; Stop 06/29/19 at 18:29; Status DC Sodium Chloride (Normal Saline Flush) 3 ml QSHIFT PRN IV AFTER MEDS AND BLOOD DRAWS; Start 06/28/19 at 19:45 Morphine Sulfate (Morphine Sulfate) 2 mg PRN Q3HRS PRN IV MILD PAIN 1-3 Last administered on 07/06/19 05:48; Start 06/28/19 at 19:45 Oxycodone/ Acetaminophen (Percocet 5/325) 1 tab PRN Q4HRS PRN PO MILD PAIN, 1ST CHOICE Last administered on 07/02/19at 16:49; Start 06/28/19 at 19:45 Oxycodone/ Acetaminophen (Percocet 5/325) 2 tab PRN Q4HRS PRN PO MODERATE PAIN, SEVERE PAIN Last administered on 06/29/19 08:39; Start 06/28/19 at 19:45 Ondansetron HCl (Zofran) 4 mg PRN Q6HRS PRN IV NAUSEA, 1ST CHOICE Last administered on 07/04/19 11:25; Start 06/28/19 at 19:45 Dextrose/Lactated Ringer's 1,000 ml @ 150 mls/hr Q6H40M IV Last administered on 06/29/19 04:56; Start 06/28/19 at 19:45; Stop 06/29/19 at 07:26; Status DC Metronidazole 100 ml @ 100 mls/hr Q8HRS IV Last administered on 07/08/19at 05:50; Start 06/28/19 at 21:00 Fentanyl Citrate (Fentanyl 2ml Vial) 100 mcg STK-MED ONCE .ROUTE ; Start 06/28/19 at 20:02; Stop 06/28/19 at 20:02; Status DC Fentanyl Citrate (Fentanyl 2ml Vial) 100 mcg STK-MED ONCE .ROUTE ; Start 06/28/19 at 20:27; Stop 06/28/19 at 20:27; Status DC Calcium Carbonate/ Glycine (Tums) 500 mg PRN AFTMEALHC PRN PO INDIGESTION; Start 06/29/19 at 07:30 Temazepam (Restoril) 7.5 mg PRN QHS PRN PO INSOMNIA; Start 06/29/19 at 07:30 Ketorolac Tromethamine (Toradol 15mg Vial) 15 mg Q6HRS IVP Last administered on 07/04/19at 06:07; Start 06/29/19 at 10:30; Stop 07/04/19 at 10:29; Status DC Enoxaparin Sodium (Lovenox 40mg Syringe) 40 mg Q24H SQ Last administered on 07/07/19at 14:22; Start 06/30/19 at 12:00 Amino Acids/ Glycerin/ Electrolytes 1,000 ml @ 80 mls/hr [id number] IV Last administered on 07/08/19at 05:49; Start 06/30/19 at 11:00 Sodium Chloride 1,000 ml @ 150 mls/hr 1X ONCE IV Last administered on 9at 11:42; Start 07/02/19 at 11:00; Stop 07/02/19 at 17:39; Status DC Hydralazine HCl (Apresoline Inj) 10 mg PRN Q4HRS PRN IVP ELEVATED BP, SEE COMMENTS Last administered on 07/02/19at 21:52; Start 07/02/19 at 21:45 Saliva Substitute (Biotene Moisturizing Mouth) 2 spray PRN Q15MIN PRN PO DRY MOUTH Last administered on 07/03/19at 17:51; Start 07/03/19 at 11:45 Saliva Substitute (Biotene Moisturizing Mouth) 2 spray PRN Q15MIN PRN PO DRY MOUTH; Start 07/03/19 at 11:45; Status UNV Vancomycin HCl 2 gm/Sodium Chloride 500 ml @ 250 mls/hr 1X ONCE IV ; Start 07/03/19 at 15:00; Stop 07/03/19 at 16:59; Status Cancel Ciprofloxacin (Cipro) 500 mg BID PO ; Start 07/04/19 at 21:00; Stop 07/05/19 at 23:11; Status DC Iohexol (Omnipaque 240 Mg/ml) 50 ml 1X ONCE PO Last administered on 07/05/19at 10:40; Start 07/05/19 at 12:45; Stop 07/05/19 at 12:55; Status DC Info (CONTRAST GIVEN -- Rx MONITORING) 1 each PRN DAILY PRN MC SEE COMMENTS; Start 07/05/19 at 13:00; Stop 07/07/19 at 12:59; Status DC Morphine Sulfate (Morphine Sulfate) 4 mg PRN Q3HRS PRN IV MODERATE TO SEVERE PAIN Last administered on 07/08/19at 05:50; Start 07/05/19 at 13:30 Fentanyl Citrate (Fentanyl 2ml Vial) 75 mcg 1X ONCE IVP Last administered on 07/05/19at 13:35; Start 07/05/19 at 13:30; Stop 07/05/19 at 13:32; Status DC Methylnaltrexone [place] (Relistor) 12 mg 1X ONCE SQ Last administered on 07/05/19at 16:04; Start 07/05/19 at 15:15; Stop 07/05/19 at 15:16; Status DC Ciprofloxacin/ Dextrose 200 ml @ 200 mls/hr Q12HR IV Last administered on 07/08/19at 08:31; Start 07/05/19 at 23:30 Active Scripts Active Reported Lisinopril 40 Mg Tablet 1 Tab PO DAILY Vitals/I & O Vital Sign - Last 24 Hours 07/07/19 07/07/19 07/07/19 07/07/19 11:00 15:00 19:00 19:07 Temp 97.8 97.6 97.8 97.8 97.6 97.8 Pulse 70 72 73 Resp 18 18 16 B/P (MAP) 138/65 (89) 146/77 (100) 128/69 (88) Pulse Ox 95 72 98 O2 Delivery Room Air Room Air Room Air Room Air 07/07/19 07/07/19 07/07/19 07/07/19 19:37 20:00 22:52 23:00 Temp 97.9 97.9 Pulse 66 Resp 16 B/P (MAP) 130/81 (97) O2 Delivery Room Air Room Air Room Air Room Air O2 Flow Rate 96.0 07/07/19 07/08/19 07/08/19 07/08/19 23:22 03:00 05:50 06:20 Temp 98.0 98.0 Pulse 68 Resp 16 B/P (MAP) 134/70 (91) O2 Delivery Room Air Room Air Room Air Room Air O2 Flow Rate 97.0 07/08/19 07:15 Temp 97.7 97.7 Pulse 69 Resp 18 B/P (MAP) 144/88 (106) Pulse Ox 95 O2 Delivery Room Air Intake and Output 07/07/19 07/07/19 07/08/19 15:00 23:00 07:00 Output Total 500 ml 750 ml Balance -500 ml -750 ml EILEEN PETTY MD Jul 08, 2019 10:52
[2019-07-08 11:15] VITALS: BP 136/70
--- NOTE | 2019-07-08 11:46 | PDOC ---
Subjective: Subjective: No stool. Passing, gas, no n/v, no abd pain. Objective: Vital Signs: Vital Signs Date Time Temp Pulse Resp B/P (MAP) Pulse Ox O2 Delivery O2 Flow Rate FiO2 07/08/19 07:15 97.7 69 18 144/88 (106) 95 Room Air 97.7 07/08/19 03:00 97.0 Imaging: [facility] 07/08 IMPRESSION: 1. Enteric tube tip in the stomach 2. Surgical drainage, right abdomen. 3. Nonspecific nonobstructive bowel gas pattern. Less gaseous distention of the yesterday's exam. PE: GEN: NAD LUNGS: CTAB HEART: RRR ABD: NABS, S/ND/NT NEURO/PSYCH: A & O 3 A/P: Perforated appendix s/p right hemicolectomy and appendectomy, post-op ileus -- X-ray w/ improvement, NG clamped, observe. NICCI ROLON Jul 08, 2019 11:46
[2019-07-08] MEDS: ENOXAPARIN 40 MG/0.4 ML SYRINGE. SQ SCH (13:10)
[2019-07-08 15:15] VITALS: BP 128/69
[2019-07-08 19:35] VITALS: BP 148/77
[2019-07-08 23:59] VITALS: BP 133/81
[2019-07-09 03:38] VITALS: BP 148/73
[2019-07-09 07:00] VITALS: BP 156/82
--- NOTE | 2019-07-09 08:45 | PDOC ---
PROGRESS NOTES Chief Complaint Chief Complaint Post-op laparotomy for perforated appendix s/p RT hemicolectomy Post op ieus Sepsis, resolved DEDRICK reoslved History of Present Illness History of Present Illness NGT clamped and no nausea. emesis or abd pain Eager to eat PRocalamine runninmg and elytes are great! PLAN: IM OPtimitistic we can dc ngt today and start some liquid diet Will await GI GS rounds dw fam too at bedside Vitals Vitals Vital Signs Date Time Temp Pulse Resp B/P (MAP) Pulse Ox O2 Delivery O2 Flow Rate FiO2 07/09/19 07:00 98.3 70 16 156/82 (106) 100 Room Air 98.3 Physical Exam General: Alert, Cooperative Heart: Regular rate, Normal S1, Normal S2, No murmurs Lungs: Clear Abdomen: Soft, Other (nd, dressing dry) Extremities: No clubbing, No cyanosis, No edema, Normal pulses, No tenderness/swelling Skin: No rashes, No breakdown, No significant lesion Review of Systems Review of Systems neg abd pain, n,v. diarrhea, fevers, cp, or soa Assessment and Plan Assessmemt and Plan Problems Medical Problems: (1) Acute abdomen Status: Acute (2) Acute renal insufficiency Status: Acute (3) Intra-abdominal abscess Status: Acute (4) Severe sepsis Status: Acute Comment Review of Relevant I have reviewed the following items butch (where applicable) has been applied. Labs Microbiology 06/28/19 Anaerobic/Aerobic Culture - Final, Complete 06/28/19 Anaerobic Culture Result 1 (JOANN) - Final, Complete 06/28/19 Aerobic Culture - Final, Complete 06/28/19 Aerobic Culture Result 1 (JOANN) - Final, Complete 06/28/19 Gram Stain - Final, Complete 06/28/19 Gram Stain Result 1 (JOANN) - Final, Complete 06/28/19 Gram Stain Result 2 (JOANN) - Final, Complete 06/28/19 Blood Culture - Final, Complete NO GROWTH AFTER 5 DAYS 06/28/19 Urine Culture - Final, Complete 06/28/19 Urine Culture Result 1 (JOANN) - Final, Complete Medications Current Medications Sodium Chloride 1,000 ml @ 1,000 mls/hr 1X ONCE IV Last administered on 06/28/19at 14:59; Start 06/28/19 at 15:00; Stop 06/28/19 at 15:59; Status DC Fentanyl Citrate (Fentanyl 2ml Vial) 50 mcg 1X ONCE IVP Last administered on 06/28/19at 15:00; Start 06/28/19 at 15:00; Stop 06/28/19 at 15:01; Status DC Ondansetron HCl (Zofran) 4 mg 1X ONCE IV Last administered on 06/28/19at 14:59; Start 06/28/19 at 15:00; Stop 06/28/19 at 15:01; Status DC Sodium Chloride 1,000 ml @ 1,000 mls/hr 1X ONCE IV Last administered on 06/28/19at 16:32; Start 06/28/19 at 15:15; Stop 06/28/19 at 16:14; Status DC Piperacillin Sod/ Tazobactam Sod 3.375 gm/Sodium Chloride 50 ml @ 100 mls/hr 1X ONCE IV Last administered on 06/28/19at 15:20; Start 06/28/19 at 15:15; Stop 06/28/19 at 15:44; Status DC Vancomycin HCl 250 ml @ 250 mls/hr 1X ONCE IV Last administered on 06/28/19at 16:29; Start 06/28/19 at 15:15; Stop 06/28/19 at 16:14; Status DC Iohexol (Omnipaque 240 Mg/ml) 50 ml 1X ONCE IV Last administered on 06/28/19at 15:20; Start 06/28/19 at 15:45; Stop 06/28/19 at 15:46; Status DC Info (CONTRAST GIVEN -- Rx MONITORING) 1 each PRN DAILY PRN MC SEE COMMENTS; Start 06/28/19 at 15:45; Stop 06/30/19 at 15:44; Status DC Sodium Chloride 1,000 ml @ 150 mls/hr Q6H40M IV Last administered on 06/29/19at 14:48; Start 06/28/19 at 16:30; Stop 06/29/19 at 16:29; Status DC Propofol 20 ml @ As Directed STK-MED ONCE IV ; Start 06/28/19 at 16:46; Stop 06/28/19 at 16:46; Status DC Lidocaine HCl (Lidocaine Pf 2% Vial) 5 ml STK-MED ONCE .ROUTE ; Start 06/28/19 at 16:46; Stop 06/28/19 at 16:46; Status DC Fentanyl Citrate (Fentanyl 2ml Vial) 100 mcg STK-MED ONCE .ROUTE ; Start 06/28/19 at 16:46; Stop 06/28/19 at 16:46; Status DC Succinylcholine Chloride (Anectine) 200 mg STK-MED ONCE .ROUTE ; Start 06/28/19 at 16:46; Stop 06/28/19 at 16:46; Status DC Rocuronium [place] (Zemuron) 50 mg STK-MED ONCE .ROUTE ; Start 06/28/19 at 16:46; Stop 06/28/19 at 16:46; Status DC Fentanyl Citrate (Fentanyl 2ml Vial) 50 mcg 1X ONCE IVP Last administered on 06/28/19at 16:49; Start 06/28/19 at 17:00; Stop 06/28/19 at 17:01; Status DC Bupivacaine HCl/ Epinephrine Bitart (Sensorcaine-Epi 0.25%-1:[id number] Mpf) 30 ml 1X ONCE INJ Last administered on 06/28/19at 17:56; Start 06/28/19 at 18:00; S top 06/28/19 at 18:01; Status DC Ondansetron HCl (Zofran) 4 mg STK-MED ONCE .ROUTE ; Start 06/28/19 at 17:52; Stop 06/28/19 at 17:53; Status DC Phenylephrine HCl (PHENYLEPHRINE in 0.9% NACL PF) 1 mg STK-MED ONCE IV ; Start 06/28/19 at 17:52; Stop 06/28/19 at 17:53; Status DC Dexamethasone Sodium Phosphate (Decadron) 4 mg STK-MED ONCE .ROUTE ; Start 06/28/19 at 17:52; Stop 06/28/19 at 17:53; Status DC Neostigmine Methylsulfate (Neostigmine Methylsulfate) 5 mg STK-MED ONCE .ROUTE ; Start 06/28/19 at 18:04; Stop 06/28/19 at 18:05; Status DC Glycopyrrolate (Robinul) 1 mg STK-MED ONCE .ROUTE ; Start 06/28/19 at 18:05; Stop 06/28/19 at 18:05; Status DC Ondansetron HCl (Zofran) 4 mg PRN Q6HRS PRN IV NAUSEA/VOMITING Last administered on 06/28/19 22:40; Start 06/28/19 at 18:30; Stop 06/29/19 at 18:29; Status DC Fentanyl Citrate (Fentanyl 2ml Vial) 25 mcg PRN Q5MIN PRN IV MILD PAIN 1-3; Start 06/28/19 at 18:30; Stop 06/29/19 at 09:27; Status DC Fentanyl Citrate (Fentanyl 2ml Vial) 50 mcg PRN Q5MIN PRN IV MODERATE TO SEVERE PAIN Last administered on 06/28/19at 20:38; Start 06/28/19 at 18:30; Stop 06/29/19 at 09:27; Status DC Morphine Sulfate (Morphine Sulfate) 1 mg PRN Q10MIN PRN IV SEVERE PAIN 7-10; Start 06/28/19 at 18:30; Stop 06/29/19 at 09:27; Status DC Ringer's Solution 1,000 ml @ 30 mls/hr Q24H IV Last administered on 06/28/19at 20:10; Start 06/28/19 at 18:22; Stop 06/29/19 at 06:21; Status DC Hydromorphone HCl (Dilaudid) 0.5 mg PRN Q10MIN PRN IV SEV PAIN, Second choice Last administered on 06/29/19 04:56; Start 06/28/19 at 18:30; Stop 06/29/19 at 09:27; Status DC Prochlorperazine Edisylate (Compazine) 5 mg PACU PRN PRN IV NAUSEA, MRX1; Start 06/28/19 at 18:30; Stop 06/29/19 at 18:29; Status DC Sodium Chloride (Normal Saline Flush) 3 ml QSHIFT PRN IV AFTER MEDS AND BLOOD DRAWS; Start 06/28/19 at 19:45 Morphine Sulfate (Morphine Sulfate) 2 mg PRN Q3HRS PRN IV MILD PAIN 1-3 Last administered on 07/06/19at 05:48; Start 06/28/19 at 19:45 Oxycodone/ Acetaminophen (Percocet 5/325) 1 tab PRN Q4HRS PRN PO MILD PAIN, 1ST CHOICE Last administered on 07/02/19at 16:49; Start 06/28/19 at 19:45 Oxycodone/ Acetaminophen (Percocet 5/325) 2 tab PRN Q4HRS PRN PO MODERATE PAIN, SEVERE PAIN Last administered on 06/29/19at 08:39; Start 06/28/19 at 19:45 Ondansetron HCl (Zofran) 4 mg PRN Q6HRS PRN IV NAUSEA, 1ST CHOICE Last administered on 07/04/19at 11:25; Start 06/28/19 at 19:45 Dextrose/Lactated Ringer's 1,000 ml @ 150 mls/hr Q6H40M IV Last administered on 06/29/19at 04:56; Start 06/28/19 at 19:45; Stop 06/29/19 at 07:26; Status DC Metronidazole 100 ml @ 100 mls/hr Q8HRS IV Last administered on 07/09/19at 05:50; Start 06/28/19 at 21:00 Fentanyl Citrate (Fentanyl 2ml Vial) 100 mcg STK-MED ONCE .ROUTE ; Start 06/28/19 at 20:02; Stop 06/28/19 at 20:02; Status DC Fentanyl Citrate (Fentanyl 2ml Vial) 100 mcg STK-MED ONCE .ROUTE ; Start 06/28/19 at 20:27; Stop 06/28/19 at 20:27; Status DC Calcium Carbonate/ Glycine (Tums) 500 mg PRN AFTMEALHC PRN PO INDIGESTION; Start 06/29/19 at 07:30 Temazepam (Restoril) 7.5 mg PRN QHS PRN PO INSOMNIA; Start 06/29/19 at 07:30 Ketorolac Tromethamine (Toradol 15mg Vial) 15 mg Q6HRS IVP Last administered on 07/04/19at 06:07; Start 06/29/19 at 10:30; Stop 07/04/19 at 10:29; Status DC Enoxaparin Sodium (Lovenox 40mg Syringe) 40 mg Q24H SQ Last administered on 07/08/19at 13:10; Start 06/30/19 at 12:00 Amino Acids/ Glycerin/ Electrolytes 1,000 ml @ 80 mls/hr [id number] IV Last administered on 07/08/19at 21:58; Start 06/30/19 at 11:00 Sodium Chloride 1,000 ml @ 150 mls/hr 1X ONCE IV Last administered on 07/02/19at 11:42; Start 07/02/19 at 11:00; Stop 07/02/19 at 17:39; Status DC Hydralazine HCl (Apresoline Inj) 10 mg PRN Q4HRS PRN IVP ELEVATED BP, SEE COMMENTS Last administered on 07/02/19at 21:52; Start 07/02/19 at 21:45 Saliva Substitute (Biotene Moisturizing Mouth) 2 spray PRN Q15MIN PRN PO DRY MOUTH Last administered on 07/03/19at 17:51; Start 07/03/19 at 11:45 Saliva Substitute (Biotene Moisturizing Mouth) 2 spray PRN Q15MIN PRN PO DRY MOUTH; Start 07/03/19 at 11:45; Status UNV Vancomycin HCl 2 gm/Sodium Chloride 500 ml @ 250 mls/hr 1X ONCE IV ; Start 07/03/19 at 15:00; Stop 07/03/19 at 16:59; Status Cancel Ciprofloxacin (Cipro) 500 mg BID PO ; Start 07/04/19 at 21:00; Stop 07/05/19 at 23:11; Status DC Iohexol (Omnipaque 240 Mg/ml) 50 ml 1X ONCE PO Last administered on 07/05/19at 10:40; Start 07/05/19 at 12:45; Stop 07/05/19 at 12:55; Status DC Info (CONTRAST GIVEN -- Rx MONITORING) 1 each PRN DAILY PRN MC SEE COMMENTS; Start 07/05/19 at 13:00; Stop 07/07/19 at 12:59; Status DC Morphine Sulfate (Morphine Sulfate) 4 mg PRN Q3HRS PRN IV MODERATE TO SEVERE PAIN Last administered on 07/08/19at 21:59; Start 07/05/19 at 13:30 Fentanyl Citrate (Fentanyl 2ml Vial) 75 mcg 1X ONCE IVP Last administered on 07/05/19at 13:35; Start 07/05/19 at 13:30; Stop 07/05/19 at 13:32; Status DC Methylnaltrexone [place] (Relistor) 12 mg 1X ONCE SQ Last administered on 07/05/19at 16:04; Start 07/05/19 at 15:15; Stop 07/05/19 at 15:16; Status DC Ciprofloxacin/ Dextrose 200 ml @ 200 mls/hr Q12HR IV Last administered on 07/08/19at 21:58; Start 07/05/19 at 23:30 Active Scripts Active Reported Lisinopril 40 Mg Tablet 1 Tab PO DAILY Vitals/I & O Vital Sign - Last 24 Hours 07/08/19 07/08/19 07/08/19 07/08/19 11:15 13:11 13:41 15:15 Temp 97.9 98.1 97.9 98.1 Pulse 76 73 Resp 20 20 16 18 B/P (MAP) 136/70 (92) 128/69 (88) Pulse Ox 96 97 O2 Delivery Room Air Room Air Room Air Room Air 07/08/19 07/08/19 07/08/19 07/08/19 19:35 20:00 21:59 22:29 Temp 97.7 97.7 Pulse 70 Resp 18 B/P (MAP) 148/77 (100) Pulse Ox 96 O2 Delivery Room Air Room Air Room Air Room Air 07/08/19 07/09/19 07/09/19 23:59 03:38 07:00 Temp 98.5 97.5 98.3 98.5 97.5 98.3 Pulse 77 70 70 Resp 18 18 16 B/P (MAP) 133/81 (98) 148/73 (98) 156/82 (106) Pulse Ox 95 100 100 O2 Delivery Room Air Room Air Room Air Intake and Output 07/08/19 07/08/19 07/09/19 15:00 23:00 07:00 Output Total 400 ml 450 ml Balance -400 ml -450 ml EILEEN PETTY MD Jul 09, 2019 08:45
[2019-07-09] MEDS: AMINO AC 3%/ELECTROLYTE/GLYCER 1,000 ML IV SCH ×2 (09:43→20:50)
[2019-07-09] MEDS: CIPROFLOXACIN 400MG PREMIX 200 ML IV SCH ×2 (09:43→20:50)
[2019-07-09] MEDS: MORPHINE SULFATE 2 MG/ML VIAL. IV PRN (09:46)
--- NOTE | 2019-07-09 10:34 | PDOC ---
SURGICAL PROGRESS NOTE Subjective Doing well passing flatus no BM no nausea Vital Signs Vital Signs Date Time Temp Pulse Resp B/P (MAP) Pulse Ox O2 Delivery O2 Flow Rate FiO2 07/09/19 09:46 16 Room Air 07/09/19 07:00 98.3 70 156/82 (106) 100 98.3 I&O Intake and Output 07/09/19 07:00 Output Total 850 ml Balance -850 ml Output Urine Total 450 ml Gastric Drainage Total 400 ml PATIENT HAS A MENON: No General: Alert, Oriented X3, Cooperative, mild distress Abdomen: Normal bowel sounds, Soft, No tenderness, Other (KATHRYN with serous output) Problem List Problems Medical Problems: (1) Acute abdomen Status: Acute (2) Acute renal insufficiency Status: Acute (3) Intra-abdominal abscess Status: Acute (4) Severe sepsis Status: Acute Assessment/Plan s/p right colon resection slow return of bowel function Has tolerated clamping the NGT will remove ARELI OBRIEN MD Jul 09, 2019 10:34
[2019-07-09 11:00] VITALS: BP 127/64
--- NOTE | 2019-07-09 12:09 | PDOC ---
Subjective: Subjective: "A little" pain, denies nausea. Says felt bloated last night but not much came from NG when suctioned. Thinks he needs to eat to have any stool. Objective: Objective: D/w nurse earlier - has some nausea last night and was hooked back up to suction, getting morphine for abd pain, no stool. Vital Signs: Vital Signs Date Time Temp Pulse Resp B/P (MAP) Pulse Ox O2 Delivery O2 Flow Rate FiO2 07/09/19 10:16 16 Room Air 07/09/19 07:00 98.3 70 156/82 (106) 100 98.3 PE: GEN: NAD, NG clamped LUNGS: CTAB HEART: RRR ABD: quiet, soft NEURO/PSYCH: A & O 3 A/P: Perforated appendix s/p right hemicolectomy and appendectomy Post-op ileus -- Plans to remove NG per surgery. Hemodynamically unstable?: No Is patient in severe pain?: No Is NPO status required?: Yes NICCI ROLON Jul 09, 2019 12:09
[2019-07-09 15:00] VITALS: BP 135/71
[2019-07-09] MEDS: ENOXAPARIN 40 MG/0.4 ML SYRINGE. SQ SCH (15:38)
--- NOTE | 2019-07-09 15:43 | NUR ---
SW following. Discussed with RN, possibly having NG tube removed, possible to advance diet to clears. SW will continue to follow.
[2019-07-09 19:00] VITALS: BP 158/88
[2019-07-09 23:00] VITALS: BP 149/74
[2019-07-10 03:00] VITALS: BP 149/85
[2019-07-10 03:13] LABS: BASO % 0 % (0-3); EOS # 0.1 x10^3/uL (0.0-0.7); EOS % 1 % (0-3); HEMATOCRIT 31.3 % (39.0-53.0); HEMOGLOBIN 10.5 g/dL (13.0-17.5); LYMPH # 1.3 x10^3/uL (1.0-4.8); LYMPH % 9 % (24-48); MEAN CORPUSCULAR HEMOGLOBIN 30 pg (25-35); MEAN CORPUSCULAR HGB CONC 33 g/dL (31-37); MEAN CORPUSCULAR VOLUME 89 fL (79-100); MONO # 1.2 x10^3/uL (0.0-1.1); MONO % 9 % (0-9); NEUT # 11.6 x10^3/uL (1.8-7.7); NEUT % 82 % (31-73); PLATELET COUNT 639 x10^3/uL (140-400); RED CELL DISTRIBUTION WIDTH 14.4 % (11.5-14.5); WHITE BLOOD COUNT 14.1 x10^3/uL (4.0-11.0)
[2019-07-10 03:49] LABS: % BANDS 2 % (0-9); % LYMPHS 7 % (24-48); % METAS 2 % (0-0); % MONOS 4 % (0-10); % SEGS 85 % (35-66); PLT ESTIMATE INCREASED (ADEQUATE)
[2019-07-10 07:00] VITALS: BP 130/67
[2019-07-10] MEDS: AMINO AC 3%/ELECTROLYTE/GLYCER 1,000 ML IV SCH (08:25)
[2019-07-10] MEDS: CIPROFLOXACIN 400MG PREMIX 200 ML IV SCH ×2 (08:26→20:54)
--- NOTE | 2019-07-10 08:59 | PDOC ---
SURGICAL PROGRESS NOTE Subjective Patient feeling much better this morning is had 2 bowel movements tolerating clear liquid diet Vital Signs Vital Signs Date Time Temp Pulse Resp B/P (MAP) Pulse Ox O2 Delivery O2 Flow Rate FiO2 07/10/19 07:00 97.7 65 16 130/67 (88) 98 Room Air 97.7 I&O Intake and Output 07/10/19 07:00 Intake Total 2830 ml Output Total 400 ml Balance 2430 ml Intake Oral 650 ml IV Total 2180 ml Gastric Drainage Total 400 ml # Voids 6 PATIENT HAS A MENON: No General: Alert, Oriented X3, Cooperative, No acute distress Abdomen: Normal bowel sounds, Soft, No tenderness, Other (wounds clean dry and intact KATHRYN drain was serous drainage) Labs Laboratory Tests Test 07/10/19 02:55 White Blood Count 14.1 x10^3/uL (4.0-11.0) Red Blood Count 3.50 x10^6/uL (4.30-5.70) Hemoglobin 10.5 g/dL (13.0-17.5) Hematocrit 31.3 % (39.0-53.0) Mean Corpuscular Volume 89 fL (79-100) Mean Corpuscular Hemoglobin 30 pg (25-35) Mean Corpuscular Hemoglobin Concent 33 g/dL (31-37) Red Cell Distribution Width 14.4 % (11.5-14.5) Platelet Count 639 x10^3/uL (140-400) Neutrophils (%) (Auto) 82 % (31-73) Lymphocytes (%) (Auto) 9 % (24-48) Monocytes (%) (Auto) 9 % (0-9) Eosinophils (%) (Auto) 1 % (0-3) Basophils (%) (Auto) 0 % (0-3) Neutrophils # (Auto) 11.6 x10^3/uL (1.8-7.7) Lymphocytes # (Auto) 1.3 x10^3/uL (1.0-4.8) Monocytes # (Auto) 1.2 x10^3/uL (0.0-1.1) Eosinophils # (Auto) 0.1 x10^3/uL (0.0-0.7) Basophils # (Auto) 0.0 x10^3/uL (0.0-0.2) Segmented Neutrophils % 85 % (35-66) Band Neutrophils % 2 % (0-9) Lymphocytes % 7 % (24-48) Monocytes % 4 % (0-10) Metamyelocytes % 2 % (0-0) Platelet Estimate Increased (ADEQUATE) Laboratory Tests Test 07/10/19 02:55 White Blood Count 14.1 x10^3/uL (4.0-11.0) Red Blood Count 3.50 x10^6/uL (4.30-5.70) Hemoglobin 10.5 g/dL (13.0-17.5) Hematocrit 31.3 % (39.0-53.0) Mean Corpuscular Volume 89 fL (79-100) Mean Corpuscular Hemoglobin 30 pg (25-35) Mean Corpuscular Hemoglobin Concent 33 g/dL (31-37) Red Cell Distribution Width 14.4 % (11.5-14.5) Platelet Count 639 x10^3/uL (140-400) Neutrophils (%) (Auto) 82 % (31-73) Lymphocytes (%) (Auto) 9 % (24-48) Monocytes (%) (Auto) 9 % (0-9) Eosinophils (%) (Auto) 1 % (0-3) Basophils (%) (Auto) 0 % (0-3) Neutrophils # (Auto) 11.6 x10^3/uL (1.8-7.7) Lymphocytes # (Auto) 1.3 x10^3/uL (1.0-4.8) Monocytes # (Auto) 1.2 x10^3/uL (0.0-1.1) Eosinophils # (Auto) 0.1 x10^3/uL (0.0-0.7) Basophils # (Auto) 0.0 x10^3/uL (0.0-0.2) Segmented Neutrophils % 85 % (35-66) Band Neutrophils % 2 % (0-9) Lymphocytes % 7 % (24-48) Monocytes % 4 % (0-10) Metamyelocytes % 2 % (0-0) Platelet Estimate Increased (ADEQUATE) Problem List Problems Medical Problems: (1) Acute abdomen Status: Acute (2) Acute renal insufficiency Status: Acute (3) Intra-abdominal abscess Status: Acute (4) Severe sepsis Status: Acute Assessment/Plan That is post-right colectomy for perforated cecum and appendix. Doing much better has had 2 bowel movements tolerating clear liquid diet will advance diet Mild leukocytosis afebrile continue antibiotics ARELI OBRIEN MD Jul 10, 2019 08:59
--- NOTE | 2019-07-10 09:19 | PDOC ---
SURGICAL PROGRESS NOTE Subjective tolerating diet + stools Vital Signs Vital Signs Date Time Temp Pulse Resp B/P (MAP) Pulse Ox O2 Delivery O2 Flow Rate FiO2 07/10/19 07:00 97.7 65 16 130/67 (88) 98 Room Air 97.7 I&O Intake and Output 07/10/19 07:00 Intake Total 2830 ml Output Total 400 ml Balance 2430 ml Intake Oral 650 ml IV Total 2180 ml Gastric Drainage Total 400 ml # Voids 6 General: Alert, Oriented X3, Cooperative Abdomen: Soft, Other (incision c/d/i, no erythema, ivan serous ) Labs Laboratory Tests Test 07/10/19 02:55 White Blood Count 14.1 x10^3/uL (4.0-11.0) Red Blood Count 3.50 x10^6/uL (4.30-5.70) Hemoglobin 10.5 g/dL (13.0-17.5) Hematocrit 31.3 % (39.0-53.0) Mean Corpuscular Volume 89 fL (79-100) Mean Corpuscular Hemoglobin 30 pg (25-35) Mean Corpuscular Hemoglobin Concent 33 g/dL (31-37) Red Cell Distribution Width 14.4 % (11.5-14.5) Platelet Count 639 x10^3/uL (140-400) Neutrophils (%) (Auto) 82 % (31-73) Lymphocytes (%) (Auto) 9 % (24-48) Monocytes (%) (Auto) 9 % (0-9) Eosinophils (%) (Auto) 1 % (0-3) Basophils (%) (Auto) 0 % (0-3) Neutrophils # (Auto) 11.6 x10^3/uL (1.8-7.7) Lymphocytes # (Auto) 1.3 x10^3/uL (1.0-4.8) Monocytes # (Auto) 1.2 x10^3/uL (0.0-1.1) Eosinophils # (Auto) 0.1 x10^3/uL (0.0-0.7) Basophils # (Auto) 0.0 x10^3/uL (0.0-0.2) Segmented Neutrophils % 85 % (35-66) Band Neutrophils % 2 % (0-9) Lymphocytes % 7 % (24-48) Monocytes % 4 % (0-10) Metamyelocytes % 2 % (0-0) Platelet Estimate Increased (ADEQUATE) Laboratory Tests Test 07/10/19 02:55 White Blood Count 14.1 x10^3/uL (4.0-11.0) Red Blood Count 3.50 x10^6/uL (4.30-5.70) Hemoglobin 10.5 g/dL (13.0-17.5) Hematocrit 31.3 % (39.0-53.0) Mean Corpuscular Volume 89 fL (79-100) Mean Corpuscular Hemoglobin 30 pg (25-35) Mean Corpuscular Hemoglobin Concent 33 g/dL (31-37) Red Cell Distribution Width 14.4 % (11.5-14.5) Platelet Count 639 x10^3/uL (140-400) Neutrophils (%) (Auto) 82 % (31-73) Lymphocytes (%) (Auto) 9 % (24-48) Monocytes (%) (Auto) 9 % (0-9) Eosinophils (%) (Auto) 1 % (0-3) Basophils (%) (Auto) 0 % (0-3) Neutrophils # (Auto) 11.6 x10^3/uL (1.8-7.7) Lymphocytes # (Auto) 1.3 x10^3/uL (1.0-4.8) Monocytes # (Auto) 1.2 x10^3/uL (0.0-1.1) Eosinophils # (Auto) 0.1 x10^3/uL (0.0-0.7) Basophils # (Auto) 0.0 x10^3/uL (0.0-0.2) Segmented Neutrophils % 85 % (35-66) Band Neutrophils % 2 % (0-9) Lymphocytes % 7 % (24-48) Monocytes % 4 % (0-10) Metamyelocytes % 2 % (0-0) Platelet Estimate Increased (ADEQUATE) Problem List Problems Medical Problems: (1) Acute abdomen Status: Acute (2) Acute renal insufficiency Status: Acute (3) Intra-abdominal abscess Status: Acute (4) Severe sepsis Status: Acute Assessment/Plan advance diet remove mariam cbc in bola PEACESONIA Jasmeet VICE PRESIDENT OF ADVERTISING Jul 10, 2019 09:19
--- NOTE | 2019-07-10 09:38 | PDOC ---
Subjective: Subjective: Stooled last ngiht and this morning, doing okay w/ clears, RLQ pain stable, no n/v. Objective: Vital Signs: Vital Signs Date Time Temp Pulse Resp B/P (MAP) Pulse Ox O2 Delivery O2 Flow Rate FiO2 07/10/19 07:00 97.7 65 16 130/67 (88) 98 Room Air 97.7 Labs: Laboratory Tests Test 07/10/19 02:55 White Blood Count 14.1 x10^3/uL Red Blood Count 3.50 x10^6/uL Hemoglobin 10.5 g/dL Hematocrit 31.3 % Mean Corpuscular Volume 89 fL Mean Corpuscular Hemoglobin 30 pg Mean Corpuscular Hemoglobin Concent 33 g/dL Red Cell Distribution Width 14.4 % Platelet Count 639 x10^3/uL Neutrophils (%) (Auto) 82 % Lymphocytes (%) (Auto) 9 % Monocytes (%) (Auto) 9 % Eosinophils (%) (Auto) 1 % Basophils (%) (Auto) 0 % Neutrophils # (Auto) 11.6 x10^3/uL Lymphocytes # (Auto) 1.3 x10^3/uL Monocytes # (Auto) 1.2 x10^3/uL Eosinophils # (Auto) 0.1 x10^3/uL Basophils # (Auto) 0.0 x10^3/uL Segmented Neutrophils % 85 % Band Neutrophils % 2 % Lymphocytes % 7 % Monocytes % 4 % Metamyelocytes % 2 % Platelet Estimate Increased PE: GEN: NAD - up in chair, NG out LUNGS: CTAB HEART: RRR ABD: quiet BS, soft NEURO/PSYCH: A & O 3 A/P: Perforated appendix s/p right hemicolectomy and appendectomy Post-op ileus - resolving -- Plans to advance diet per surgery. Hemodynamically unstable?: No Is patient in severe pain?: No Is NPO status required?: No NICCI ROLON Jul 10, 2019 09:38
[2019-07-10 11:00] VITALS: BP 125/73
--- NOTE | 2019-07-10 12:17 | PDOC ---
PROGRESS NOTES Chief Complaint Chief Complaint Post-op laparotomy for perforated appendix s/p RT hemicolectomy Post op ieus Sepsis, resolved DEDRICK reoslved History of Present Illness History of Present Illness NGT out and tolerating liquid and no nausea or abd pain PAssing gas HAppy bec he is now eating PLAN: Possible dc tmr home with fam if he tolerates diet today CUrrent iVF to consume Vitals Vitals Vital Signs Date Time Temp Pulse Resp B/P (MAP) Pulse Ox O2 Delivery O2 Flow Rate FiO2 07/10/19 11:00 98.1 78 18 125/73 (90) 96 Room Air 98.1 Physical Exam General: Alert, Oriented X3, Cooperative Heart: Regular rate, Normal S1, Normal S2, No murmurs Lungs: Clear Abdomen: Soft, Other (incision c/d/i, no erythema, ivan serous ) Extremities: No clubbing, No cyanosis, No edema, Normal pulses, No tenderness/swelling Skin: No rashes, No breakdown, No significant lesion Labs LABS Laboratory Tests Test 07/10/19 02:55 White Blood Count 14.1 x10^3/uL (4.0-11.0) Red Blood Count 3.50 x10^6/uL (4.30-5.70) Hemoglobin 10.5 g/dL (13.0-17.5) Hematocrit 31.3 % (39.0-53.0) Mean Corpuscular Volume 89 fL (79-100) Mean Corpuscular Hemoglobin 30 pg (25-35) Mean Corpuscular Hemoglobin Concent 33 g/dL (31-37) Red Cell Distribution Width 14.4 % (11.5-14.5) Platelet Count 639 x10^3/uL (140-400) Neutrophils (%) (Auto) 82 % (31-73) Lymphocytes (%) (Auto) 9 % (24-48) Monocytes (%) (Auto) 9 % (0-9) Eosinophils (%) (Auto) 1 % (0-3) Basophils (%) (Auto) 0 % (0-3) Neutrophils # (Auto) 11.6 x10^3/uL (1.8-7.7) Lymphocytes # (Auto) 1.3 x10^3/uL (1.0-4.8) Monocytes # (Auto) 1.2 x10^3/uL (0.0-1.1) Eosinophils # (Auto) 0.1 x10^3/uL (0.0-0.7) Basophils # (Auto) 0.0 x10^3/uL (0.0-0.2) Segmented Neutrophils % 85 % (35-66) Band Neutrophils % 2 % (0-9) Lymphocytes % 7 % (24-48) Monocytes % 4 % (0-10) Metamyelocytes % 2 % (0-0) Platelet Estimate Increased (ADEQUATE) Review of Systems Review of Systems happy, all else is neg Assessment and Plan Assessmemt and Plan Problems Medical Problems: (1) Acute abdomen Status: Acute (2) Acute renal insufficiency Status: Acute (3) Intra-abdominal abscess Status: Acute (4) Severe sepsis Status: Acute Comment Review of Relevant I have reviewed the following items butch (where applicable) has been applied. Labs Laboratory Tests Test 07/10/19 02:55 White Blood Count 14.1 x10^3/uL (4.0-11.0) Red Blood Count 3.50 x10^6/uL (4.30-5.70) Hemoglobin 10.5 g/dL (13.0-17.5) Hematocrit 31.3 % (39.0-53.0) Mean Corpuscular Volume 89 fL (79-100) Mean Corpuscular Hemoglobin 30 pg (25-35) Mean Corpuscular Hemoglobin Concent 33 g/dL (31-37) Red Cell Distribution Width 14.4 % (11.5-14.5) Platelet Count 639 x10^3/uL (140-400) Neutrophils (%) (Auto) 82 % (31-73) Lymphocytes (%) (Auto) 9 % (24-48) Monocytes (%) (Auto) 9 % (0-9) Eosinophils (%) (Auto) 1 % (0-3) Basophils (%) (Auto) 0 % (0-3) Neutrophils # (Auto) 11.6 x10^3/uL (1.8-7.7) Lymphocytes # (Auto) 1.3 x10^3/uL (1.0-4.8) Monocytes # (Auto) 1.2 x10^3/uL (0.0-1.1) Eosinophils # (Auto) 0.1 x10^3/uL (0.0-0.7) Basophils # (Auto) 0.0 x10^3/uL (0.0-0.2) Segmented Neutrophils % 85 % (35-66) Band Neutrophils % 2 % (0-9) Lymphocytes % 7 % (24-48) Monocytes % 4 % (0-10) Metamyelocytes % 2 % (0-0) Platelet Estimate Increased (ADEQUATE) Laboratory Tests Test 07/10/19 02:55 White Blood Count 14.1 x10^3/uL (4.0-11.0) Red Blood Count 3.50 x10^6/uL (4.30-5.70) Hemoglobin 10.5 g/dL (13.0-17.5) Hematocrit 31.3 % (39.0-53.0) Mean Corpuscular Volume 89 fL (79-100) Mean Corpuscular Hemoglobin 30 pg (25-35) Mean Corpuscular Hemoglobin Concent 33 g/dL (31-37) Red Cell Distribution Width 14.4 % (11.5-14.5) Platelet Count 639 x10^3/uL (140-400) Neutrophils (%) (Auto) 82 % (31-73) Lymphocytes (%) (Auto) 9 % (24-48) Monocytes (%) (Auto) 9 % (0-9) Eosinophils (%) (Auto) 1 % (0-3) Basophils (%) (Auto) 0 % (0-3) Neutrophils # (Auto) 11.6 x10^3/uL (1.8-7.7) Lymphocytes # (Auto) 1.3 x10^3/uL (1.0-4.8) Monocytes # (Auto) 1.2 x10^3/uL (0.0-1.1) Eosinophils # (Auto) 0.1 x10^3/uL (0.0-0.7) Basophils # (Auto) 0.0 x10^3/uL (0.0-0.2) Segmented Neutrophils % 85 % (35-66) Band Neutrophils % 2 % (0-9) Lymphocytes % 7 % (24-48) Monocytes % 4 % (0-10) Metamyelocytes % 2 % (0-0) Platelet Estimate Increased (ADEQUATE) Microbiology 06/28/19 Anaerobic/Aerobic Culture - Final, Complete 06/28/19 Anaerobic Culture Result 1 (JOANN) - Final, Complete 06/28/19 Aerobic Culture - Final, Complete 06/28/19 Aerobic Culture Result 1 (JOANN) - Final, Complete 06/28/19 Gram Stain - Final, Complete 06/28/19 Gram Stain Result 1 (JOANN) - Final, Complete 06/28/19 Gram Stain Result 2 (JOANN) - Final, Complete 06/28/19 Blood Culture - Final, Complete NO GROWTH AFTER 5 DAYS 06/28/19 Urine Culture - Final, Complete 06/28/19 Urine Culture Result 1 (JOANN) - Final, Complete Medications Current Medications Sodium Chloride 1,000 ml @ 1,000 mls/hr 1X ONCE IV Last administered on 06/28/19at 14:59; Start 06/28/19 at 15:00; Stop 06/28/19 at 15:59; Status DC Fentanyl Citrate (Fentanyl 2ml Vial) 50 mcg 1X ONCE IVP Last administered on 06/28/19at 15:00; Start 06/28/19 at 15:00; Stop 06/28/19 at 15:01; Status DC Ondansetron HCl (Zofran) 4 mg 1X ONCE IV Last administered on 06/28/19 14:59; Start 06/28/19 at 15:00; Stop 06/28/19 at 15:01; Status DC Sodium Chloride 1,000 ml @ 1,000 mls/hr 1X ONCE IV Last administered on 06/28/19at 16:32; Start 06/28/19 at 15:15; Stop 06/28/19 at 16:14; Status DC Piperacillin Sod/ Tazobactam Sod 3.375 gm/Sodium Chloride 50 ml @ 100 mls/hr 1X ONCE IV Last administered on 06/28/19at 15:20; Start 06/28/19 at 15:15; Stop 06/28/19 at 15:44; Status DC Vancomycin HCl 250 ml @ 250 mls/hr 1X ONCE IV Last administered on 06/28/19at 16:29; Start 06/28/19 at 15:15; Stop 06/28/19 at 16:14; Status DC Iohexol (Omnipaque 240 Mg/ml) 50 ml 1X ONCE IV Last administered on 06/28/19at 15:20; Start 06/28/19 at 15:45; Stop 06/28/19 at 15:46; Status DC Info (CONTRAST GIVEN -- Rx MONITORING) 1 each PRN DAILY PRN MC SEE COMMENTS; Start 06/28/19 at 15:45; Stop 06/30/19 at 15:44; Status DC Sodium Chloride 1,000 ml @ 150 mls/hr Q6H40M IV Last administered on 06/29/19at 14:48; Start 06/28/19 at 16:30; Stop 06/29/19 at 16:29; Status DC Propofol 20 ml @ As Directed STK-MED ONCE IV ; Start 06/28/19 at 16:46; Stop 06/28/19 at 16:46; Status DC Lidocaine HCl (Lidocaine Pf 2% Vial) 5 ml STK-MED ONCE .ROUTE ; Start 06/28/19 at 16:46; Stop 06/28/19 at 16:46; Status DC Fentanyl Citrate (Fentanyl 2ml Vial) 100 mcg STK-MED ONCE .ROUTE ; Start 06/28/19 at 16:46; Stop 06/28/19 at 16:46; Status DC Succinylcholine Chloride (Anectine) 200 mg STK-MED ONCE .ROUTE ; Start 06/28/19 at 16:46; Stop 06/28/19 at 16:46; Status DC Rocuronium [place] (Zemuron) 50 mg STK-MED ONCE .ROUTE ; Start 06/28/19 at 16:46; Stop 06/28/19 at 16:46; Status DC Fentanyl Citrate (Fentanyl 2ml Vial) 50 mcg 1X ONCE IVP Last administered on 06/28/19at 16:49; Start 06/28/19 at 17:00; Stop 06/28/19 at 17:01; Status DC Bupivacaine HCl/ Epinephrine Bitart (Sensorcaine-Epi 0.25%-1:[id number] Mpf) 30 ml 1X ONCE INJ Last administered on 06/28/19at 17:56; Start 06/28/19 at 18:00; Stop 06/28/19 at 18:01; Status DC Ondansetron HCl (Zofran) 4 mg STK-MED ONCE .ROUTE ; Start 06/28/19 at 17:52; Stop 06/28/19 at 17:53; Status DC Phenylephrine HCl (PHENYLEPHRINE in 0.9% NACL PF) 1 mg STK-MED ONCE IV ; Start 06/28/19 at 17:52; Stop 06/28/19 at 17:53; Status DC Dexamethasone Sodium Phosphate (Decadron) 4 mg STK-MED ONCE .ROUTE ; Start 06/28/19 at 17:52; Stop 06/28/19 at 17:53; Status DC Neostigmine Methylsulfate (Neostigmine Methylsulfate) 5 mg STK-MED ONCE .ROUTE ; Start 06/28/19 at 18:04; Stop 06/28/19 at 18:05; Status DC Glycopyrrolate (Robinul) 1 mg STK-MED ONCE .ROUTE ; Start 06/28/19 at 18:05; Stop 06/28/19 at 18:05; Status DC Ondansetron HCl (Zofran) 4 mg PRN Q6HRS PRN IV NAUSEA/VOMITING Last administered on 06/28/19at 22:40; Start 06/28/19 at 18:30; Stop 06/29/19 at 18:29; Status DC Fentanyl Citrate (Fentanyl 2ml Vial) 25 mcg PRN Q5MIN PRN IV MILD PAIN 1-3; Start 06/28/19 at 18:30; Stop 06/29/19 at 09:27; Status DC Fentanyl Citrate (Fentanyl 2ml Vial) 50 mcg PRN Q5MIN PRN IV MODERATE TO SEVERE PAIN Last administered on 06/28/19at 20:38; Start 06/28/19 at 18:30; Stop 06/29/19 at 09:27; Status DC Morphine Sulfate (Morphine Sulfate) 1 mg PRN Q10MIN PRN IV SEVERE PAIN 7-10; Start 06/28/19 at 18:30; Stop 06/29/19 at 09:27; Status DC Ringer's Solution 1,000 ml @ 30 mls/hr Q24H IV Last administered on 06/28/19at 20:10; Start 06/28/19 at 18:22; Stop 06/29/19 at 06:21; Status DC Hydromorphone HCl (Dilaudid) 0.5 mg PRN Q10MIN PRN IV SEV PAIN, Second choice Last administered on 06/29/19at 04:56; Start 06/28/19 at 18:30; Stop 06/29/19 at 09:27; Status DC Prochlorperazine Edisylate (Compazine) 5 mg PACU PRN PRN IV NAUSEA, MRX1; Start 06/28/19 at 18:30; Stop 06/29/19 at 18:29; Status DC Sodium Chloride (Normal Saline Flush) 3 ml QSHIFT PRN IV AFTER MEDS AND BLOOD DRAWS; Start 06/28/19 at 19:45 Morphine Sulfate (Morphine Sulfate) 2 mg PRN Q3HRS PRN IV MILD PAIN 1-3 Last administered on 07/09/19at 09:46; Start 06/28/19 at 19:45 Oxycodone/ Acetaminophen (Percocet 5/325) 1 tab PRN Q4HRS PRN PO MILD PAIN, 1ST CHOICE Last administered on 07/02/19at 16:49; Start 06/28/19 at 19:45 Oxycodone/ Acetaminophen (Percocet 5/325) 2 tab PRN Q4HRS PRN PO MODERATE PAIN, SEVERE PAIN Last administered on 06/29/19at 08:39; Start 06/28/19 at 19:45 Ondansetron HCl (Zofran) 4 mg PRN Q6HRS PRN IV NAUSEA, 1ST CHOICE Last administered on 07/04/19at 11:25; Start 06/28/19 at 19:45 Dextrose/Lactated Ringer's 1,000 ml @ 150 mls/hr Q6H40M IV Last administered on 06/29/19at 04:56; Start 06/28/19 at 19:45; Stop 06/29/19 at 07:26; Status DC Metronidazole 100 ml @ 100 mls/hr Q8HRS IV Last administered on 07/10/19at 05:59; Start 06/28/19 at 21:00 Fentanyl Citrate (Fentanyl 2ml Vial) 100 mcg STK-MED ONCE .ROUTE ; Start 06/28/19 at 20:02; Stop 06/28/19 at 20:02; Status DC Fentanyl Citrate (Fentanyl 2ml Vial) 100 mcg STK-MED ONCE .ROUTE ; Start 06/28/19 at 20:27; Stop 06/28/19 at 20:27; Status DC Calcium Carbonate/ Glycine (Tums) 500 mg PRN AFTMEALHC PRN PO INDIGESTION; Start 06/29/19 at 07:30 Temazepam (Restoril) 7.5 mg PRN QHS PRN PO INSOMNIA; Start 06/29/19 at 07:30 Ketorolac Tromethamine (Toradol 15mg Vial) 15 mg Q6HRS IVP Last administered on 07/04/19at 06:07; Start 06/29/19 at 10:30; Stop 07/04/19 at 10:29; Status DC Enoxaparin Sodium (Lovenox 40mg Syringe) 40 mg Q24H SQ Last administered on 07/09/19at 15:38; Start 06/30/19 at 12:00; Stop 07/10/19 at 09:15; Status DC Amino Acids/ Glycerin/ Electrolytes 1,000 ml @ 80 mls/hr [id number] IV Last administered on 07/10/19at 08:25; Start 06/30/19 at 11:00; Stop 07/10/19 at 09:15; Status DC Sodium Chloride 1,000 ml @ 150 mls/hr 1X ONCE IV Last administered on 07/02/19at 11:42; Start 07/02/19 at 11:00; Stop 07/02/19 at 17:39; Status DC Hydralazine HCl (Apresoline Inj) 10 mg PRN Q4HRS PRN IVP ELEVATED BP, SEE COMMENTS Last administered on 07/02/19at 21:52; Start 07/02/19 at 21:45 Saliva Substitute (Biotene Moisturizing Mouth) 2 spray PRN Q15MIN PRN PO DRY MOUTH Last administered on 07/03/19at 17:51; Start 07/03/19 at 11:45 Saliva Substitute (Biotene Moisturizing Mouth) 2 spray PRN Q15MIN PRN PO DRY MOUTH; Start 07/03/19 at 11:45; Status UNV Vancomycin HCl 2 gm/Sodium Chloride 500 ml @ 250 mls/hr 1X ONCE IV ; Start 07/03/19 at 15:00; Stop 07/03/19 at 16:59; Status Cancel Ciprofloxacin (Cipro) 500 mg BID PO ; Start 07/04/19 at 21:00; Stop 07/05/19 at 23:11; Status DC Iohexol (Omnipaque 240 Mg/ml) 50 ml 1X ONCE PO Last administered on 07/05/19at 10:40; Start 07/05/19 at 12:45; Stop 07/05/19 at 12:55; Status DC Info (CONTRAST GIVEN -- Rx MONITORING) 1 each PRN DAILY PRN MC SEE COMMENTS; Start 07/05/19 at 13:00; Stop 07/07/19 at 12:59; Status DC Morphine Sulfate (Morphine Sulfate) 4 mg PRN Q3HRS PRN IV MODERATE TO SEVERE PAIN Last administered on 07/08/19at 21:59; Start 07/05/19 at 13:30 Fentanyl Citrate (Fentanyl 2ml Vial) 75 mcg 1X ONCE IVP Last administered on 07/05/19at 13:35; Start 07/05/19 at 13:30; Stop 07/05/19 at 13:32; Status DC Methylnaltrexone [place] (Relistor) 12 mg 1X ONCE SQ Last administered on 07/05/19at 16:04; Start 07/05/19 at 15:15; Stop 07/05/19 at 15:16; Status DC Ciprofloxacin/ Dextrose 200 ml @ 200 mls/hr Q12HR IV Last administered on 07/10/19at 08:26; Start 07/05/19 at 23:30 Active Scripts Active Reported Lisinopril 40 Mg Tablet 1 Tab PO DAILY Vitals/I & O Vital Sign - Last 24 Hours 07/09/19 07/09/19 07/09/19 07/09/19 15:00 19:00 20:00 23:00 Temp 97.9 98.3 98.4 97.9 98.3 98.4 Pulse 82 80 82 Resp B/P (MAP) 135/71 (92) 158/88 (111) 149/74 (99) Pulse Ox 98 100 97 O2 Delivery Room Air Room Air Room Air Room Air 07/10/19 07/10/19 07/10/19 07/10/19 03:00 07:00 08:00 11:00 Temp 98.5 97.7 98.1 98.5 97.7 98.1 Pulse 76 65 78 Resp 18 16 18 B/P (MAP) 149/85 (106) 130/67 (88) 125/73 (90) Pulse Ox 99 98 96 O2 Delivery Room Air Room Air Room Air Room Air Intake and Output 07/09/19 07/09/19 07/10/19 15:00 23:00 07:00 Intake Total 200 ml 1490 ml 1140 ml Output Total 400 ml Balance -200 ml 1490 ml 1140 ml Hemodynamically unstable?: No Is patient in severe pain?: No Is NPO status required?: No EILEEN PETTY MD Jul 10, 2019 12:17
--- NOTE | 2019-07-10 12:57 | NUR ---
SSW following. Discussed with RN. Pt has had 3xBM, tolerated clear liquid diet, advancing to GI soft. RN anticipate possible discharge home with family tomorrow (07/11/19). SW will continue to follow.
[2019-07-10 15:00] VITALS: BP 125/77
[2019-07-10 19:30] VITALS: BP 119/62
[2019-07-10] MEDS: LACTOBACILLUS RHAMNOSUS GG 1 CAPSULE. PO SCH (20:54)
[2019-07-10] MEDS: oxyCODONE/APAP 5/325 1 TAB TABLET PO PRN (20:55)
[2019-07-10 23:38] VITALS: BP 126/69
[2019-07-11 03:25] VITALS: BP 140/75
[2019-07-11 04:36] LABS: BASO % 0 % (0-3); EOS # 0.1 x10^3/uL (0.0-0.7); EOS % 2 % (0-3); HEMATOCRIT 28.8 % (39.0-53.0); HEMOGLOBIN 9.7 g/dL (13.0-17.5); LYMPH # 1.5 x10^3/uL (1.0-4.8); LYMPH % 18 % (24-48); MEAN CORPUSCULAR HEMOGLOBIN 30 pg (25-35); MEAN CORPUSCULAR HGB CONC 34 g/dL (31-37); MEAN CORPUSCULAR VOLUME 90 fL (79-100); MONO % 12 % (0-9); NEUT # 5.8 x10^3/uL (1.8-7.7); NEUT % 69 % (31-73); PLATELET COUNT 609 x10^3/uL (140-400); RED BLOOD COUNT 3.21 x10^6/uL (4.30-5.70); RED CELL DISTRIBUTION WIDTH 14.4 % (11.5-14.5); WHITE BLOOD COUNT 8.5 x10^3/uL (4.0-11.0)
[2019-07-11 07:00] VITALS: BP 151/71
--- NOTE | 2019-07-11 08:26 | PDOC ---
SURGICAL PROGRESS NOTE Subjective tolerating diet, low appetite had stool yesterday, + flatus today no n/v Vital Signs Vital Signs Date Time Temp Pulse Resp B/P (MAP) Pulse Ox O2 Delivery O2 Flow Rate FiO2 07/11/19 07:00 98.1 68 18 151/71 (97) 99 Room Air 98.1 I&O Intake and Output 07/11/19 07:00 Intake Total 1140 ml Output Total 370 ml Balance 770 ml Intake Oral 440 ml IV Total 700 ml Output Urine Total 300 ml Drainage Total 70 ml # Voids 4 # Bowel Movements 1 General: Alert, Oriented X3, Cooperative Abdomen: Soft, Other (ND, drain in place, kojo in place) Labs Laboratory Tests Test 07/10/19 02:55 07/11/19 04:05 White Blood Count 14.1 x10^3/uL (4.0-11.0) 8.5 x10^3/uL (4.0-11.0) Red Blood Count 3.50 x10^6/uL (4.30-5.70) 3.21 x10^6/uL (4.30-5.70) Hemoglobin 10.5 g/dL (13.0-17.5) 9.7 g/dL (13.0-17.5) Hematocrit 31.3 % (39.0-53.0) 28.8 % (39.0-53.0) Mean Corpuscular Volume 89 fL (79-100) 90 fL (79-100) Mean Corpuscular Hemoglobin 30 pg (25-35) 30 pg (25-35) Mean Corpuscular Hemoglobin Concent 33 g/dL (31-37) 34 g/dL (31-37) Red Cell Distribution Width 14.4 % (11.5-14.5) 14.4 % (11.5-14.5) Platelet Count 639 x10^3/uL (140-400) 609 x10^3/uL (140-400) Neutrophils (%) (Auto) 82 % (31-73) 69 % (31-73) Lymphocytes (%) (Auto) 9 % (24-48) 18 % (24-48) Monocytes (%) (Auto) 9 % (0-9) 12 % (0-9) Eosinophils (%) (Auto) 1 % (0-3) 2 % (0-3) Basophils (%) (Auto) 0 % (0-3) 0 % (0-3) Neutrophils # (Auto) 11.6 x10^3/uL (1.8-7.7) 5.8 x10^3/uL (1.8-7.7) Lymphocytes # (Auto) 1.3 x10^3/uL (1.0-4.8) 1.5 x10^3/uL (1.0-4.8) Monocytes # (Auto) 1.2 x10^3/uL (0.0-1.1) 1.0 x10^3/uL (0.0-1.1) Eosinophils # (Auto) 0.1 x10^3/uL (0.0-0.7) 0.1 x10^3/uL (0.0-0.7) Basophils # (Auto) 0.0 x10^3/uL (0.0-0.2) 0.0 x10^3/uL (0.0-0.2) Segmented Neutrophils % 85 % (35-66) Band Neutrophils % 2 % (0-9) Lymphocytes % 7 % (24-48) Monocytes % 4 % (0-10) Metamyelocytes % 2 % (0-0) Platelet Estimate Increased (ADEQUATE) Laboratory Tests Test 07/11/19 04:05 White Blood Count 8.5 x10^3/uL (4.0-11.0) Red Blood Count 3.21 x10^6/uL (4.30-5.70) Hemoglobin 9.7 g/dL (13.0-17.5) Hematocrit 28.8 % (39.0-53.0) Mean Corpuscular Volume 90 fL (79-100) Mean Corpuscular Hemoglobin 30 pg (25-35) Mean Corpuscular Hemoglobin Concent 34 g/dL (31-37) Red Cell Distribution Width 14.4 % (11.5-14.5) Platelet Count 609 x10^3/uL (140-400) Neutrophils (%) (Auto) 69 % (31-73) Lymphocytes (%) (Auto) 18 % (24-48) Monocytes (%) (Auto) 12 % (0-9) Eosinophils (%) (Auto) 2 % (0-3) Basophils (%) (Auto) 0 % (0-3) Neutrophils # (Auto) 5.8 x10^3/uL (1.8-7.7) Lymphocytes # (Auto) 1.5 x10^3/uL (1.0-4.8) Monocytes # (Auto) 1.0 x10^3/uL (0.0-1.1) Eosinophils # (Auto) 0.1 x10^3/uL (0.0-0.7) Basophils # (Auto) 0.0 x10^3/uL (0.0-0.2) Problem List Problems Medical Problems: (1) Acute abdomen Status: Acute (2) Acute renal insufficiency Status: Acute (3) Intra-abdominal abscess Status: Acute (4) Severe sepsis Status: Acute Assessment/Plan wbc 8.5 bowels functioning dc kojo and drain ok from surgical pov to dc home SONIA PEACE APRN Jul 11, 2019 08:26
[2019-07-11] MEDS ORDERED: LEVO500T59 PO (08:28)
[2019-07-11] MEDS ORDERED: OXYC1TAB15 PO (08:28)
[2019-07-11] MEDS: LACTOBACILLUS RHAMNOSUS GG 1 CAPSULE. PO SCH (09:00)
--- NOTE | 2019-07-11 09:32 | PDOC ---
Subjective: Subjective: Eating okay. Some abd pain - better overall. Stooled yesterday. Might get to go home today. Says he needs paperwork filled out. A little tired. Objective: Vital Signs: Vital Signs Date Time Temp Pulse Resp B/P (MAP) Pulse Ox O2 Delivery O2 Flow Rate FiO2 07/11/19 08:00 Room Air 07/11/19 07:00 98.1 68 18 151/71 (97) 99 98.1 Labs: Laboratory Tests Test 07/11/19 04:05 White Blood Count 8.5 x10^3/uL Red Blood Count 3.21 x10^6/uL Hemoglobin 9.7 g/dL Hematocrit 28.8 % Mean Corpuscular Volume 90 fL Mean Corpuscular Hemoglobin 30 pg Mean Corpuscular Hemoglobin Concent 34 g/dL Red Cell Distribution Width 14.4 % Platelet Count 609 x10^3/uL Neutrophils (%) (Auto) 69 % Lymphocytes (%) (Auto) 18 % Monocytes (%) (Auto) 12 % Eosinophils (%) (Auto) 2 % Basophils (%) (Auto) 0 % Neutrophils # (Auto) 5.8 x10^3/uL Lymphocytes # (Auto) 1.5 x10^3/uL Monocytes # (Auto) 1.0 x10^3/uL Eosinophils # (Auto) 0.1 x10^3/uL Basophils # (Auto) 0.0 x10^3/uL PE: GEN: NAD LUNGS: CTAB HEART: RRR ABD: soft, quiet BS NEURO/PSYCH: A & O 3 A/P: Perforated appendix s/p right hemicolectomy and appendectomy Post-op ileus - resolved -- DC per primary. Outpt screening colonoscopy. Hemodynamically unstable?: No Is patient in severe pain?: No Is NPO status required?: No NICCI ROLON Jul 11, 2019 09:32
--- NOTE | 2019-07-11 10:28 | PDOC3 ---
Discharge Summary Visit Information Date of Admission: Jun 28, 2019 Date of Discharge: Jul 11, 2019 Admitting Diagnosis Comment: Post-op laparotomy for perforated appendix s/p RT hemicolectomy Post op ieus Sepsis, resolved DEDRICK reoslved Final Diagnosis Problems Medical Problems: (1) Acute abdomen Status: Acute (2) Acute renal insufficiency Status: Acute (3) Intra-abdominal abscess Status: Acute (4) Severe sepsis Status: Acute Brief Hospital Course Allergies Allergies Coded Allergies Type Severity Reaction Last Updated Verified No Known Drug Allergies 06/28/19 No Vital Signs Vital Signs Date Time Temp Pulse Resp B/P (MAP) Pulse Ox O2 Delivery O2 Flow Rate FiO2 07/11/19 08:00 Room Air 07/11/19 07:00 98.1 68 18 151/71 (97) 99 98.1 Lab Results Laboratory Tests Test 07/10/19 02:55 07/11/19 04:05 White Blood Count 14.1 x10^3/uL (4.0-11.0) 8.5 x10^3/uL (4.0-11.0) Red Blood Count 3.50 x10^6/uL (4.30-5.70) 3.21 x10^6/uL (4.30-5.70) Hemoglobin 10.5 g/dL (13.0-17.5) 9.7 g/dL (13.0-17.5) Hematocrit 31.3 % (39.0-53.0) 28.8 % (39.0-53.0) Mean Corpuscular Volume 89 fL (79-100) 90 fL (79-100) Mean Corpuscular Hemoglobin 30 pg (25-35) 30 pg (25-35) Mean Corpuscular Hemoglobin Concent 33 g/dL (31-37) 34 g/dL (31-37) Red Cell Distribution Width 14.4 % (11.5-14.5) 14.4 % (11.5-14.5) Platelet Count 639 x10^3/uL (140-400) 609 x10^3/uL (140-400) Neutrophils (%) (Auto) 82 % (31-73) 69 % (31-73) Lymphocytes (%) (Auto) 9 % (24-48) 18 % (24-48) Monocytes (%) (Auto) 9 % (0-9) 12 % (0-9) Eosinophils (%) (Auto) 1 % (0-3) 2 % (0-3) Basophils (%) (Auto) 0 % (0-3) 0 % (0-3) Neutrophils # (Auto) 11.6 x10^3/uL (1.8-7.7) 5.8 x10^3/uL (1.8-7.7) Lymphocytes # (Auto) 1.3 x10^3/uL (1.0-4.8) 1.5 x10^3/uL (1.0-4.8) Monocytes # (Auto) 1.2 x10^3/uL (0.0-1.1) 1.0 x10^3/uL (0.0-1.1) Eosinophils # (Auto) 0.1 x10^3/uL (0.0-0.7) 0.1 x10^3/uL (0.0-0.7) Basophils # (Auto) 0.0 x10^3/uL (0.0-0.2) 0.0 x10^3/uL (0.0-0.2) Segmented Neutrophils % 85 % (35-66) Band Neutrophils % 2 % (0-9) Lymphocytes % 7 % (24-48) Monocytes % 4 % (0-10) Metamyelocytes % 2 % (0-0) Platelet Estimate Increased (ADEQUATE) Laboratory Tests Test 07/11/19 04:05 White Blood Count 8.5 x10^3/uL (4.0-11.0) Red Blood Count 3.21 x10^6/uL (4.30-5.70) Hemoglobin 9.7 g/dL (13.0-17.5) Hematocrit 28.8 % (39.0-53.0) Mean Corpuscular Volume 90 fL (79-100) Mean Corpuscular Hemoglobin 30 pg (25-35) Mean Corpuscular Hemoglobin Concent 34 g/dL (31-37) Red Cell Distribution Width 14.4 % (11.5-14.5) Platelet Count 609 x10^3/uL (140-400) Neutrophils (%) (Auto) 69 % (31-73) Lymphocytes (%) (Auto) 18 % (24-48) Monocytes (%) (Auto) 12 % (0-9) Eosinophils (%) (Auto) 2 % (0-3) Basophils (%) (Auto) 0 % (0-3) Neutrophils # (Auto) 5.8 x10^3/uL (1.8-7.7) Lymphocytes # (Auto) 1.5 x10^3/uL (1.0-4.8) Monocytes # (Auto) 1.0 x10^3/uL (0.0-1.1) Eosinophils # (Auto) 0.1 x10^3/uL (0.0-0.7) Basophils # (Auto) 0.0 x10^3/uL (0.0-0.2) Brief Hospital Course Mr. Diez is a 63 old male who came for perf appy ended up needing rt hemicolectomy and course remarkable for post op ileus needing NGT and NPO for few days, NOw succesfully off nGT, no external drains, eating well with no pT needs,. 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, I Advised no heavy liftingy > 20 lbs in the next 2 weeks at least and ff up DR Adame GS 2 weeks Dw at [place], dc 34 mins > 50% dc educn and counselling Discharge Information Condition at Discharge: Improved, Stable Follow Up: Weeks (2 weeks ) Disposition/Orders: D/C to Home Scheduled Levofloxacin (Levaquin) 500 Mg Tablet, 1 TAB PO DAILY for post lap appy perf for 7 Days, #7 Ref 0 Prescribed by: EILEEN PETTY on 07/11/19 0828 Lisinopril (Lisinopril) 40 Mg Tablet, 1 TAB PO DAILY for HTN, #30 Ref 5 (Reported) Entered as Reported by: ARELI TRIVEDI on 06/29/19 0000 Last Taken: Unknown Dose on 06/28/19 0900 Last Action: New Order on 06/29 by ARELI TRIVEDI Scheduled PRN Oxycodone/Apap 5-325 (Percocet 5-325 Mg Tablet ) 1 Each Tablet, 2 TAB PO PRN Q4HRS PRN for MODERATE PAIN, SEVERE PAIN, #20 Prescribed by: EILEEN PETTY on 07/11/19 0828 Hemodynamically unstable?: No Is patient in severe pain?: No Is NPO status required?: No EILEEN PETTY MD Jul 11, 2019 10:28
--- NOTE | 2019-07-11 10:58 | NUR ---
Discharge instructions and belongings reviewed with patient, verbalized understanding. Patient was escorted out via wheelchair by Christie YEUNG
--- NOTE | 2019-07-11 11:15 | NUR ---
SW following. Discussed with RN, pt is discharging home today with self care. No SW needs.
== END 2019-07-11 11:20 | disposition home or self-care (01) | DRG 853 ==
LOC: ER 13:25 → 5 SOUTH 14:47 → 2 NORTH 17:02 → 4 NORTH 06-29 18:09
PROVIDERS: ADMIT Internal Medicine; ATTEND Internal Medicine
PROC: 0DTH0ZZ Resection of Cecum, Open Approach (ICD-10-PCS; principal; 2019-06-28 17:07)
DX: A41.9 Sepsis, unspecified organism (principal); K35.33 Acute appendicitis with perforation, localized peritonitis, and gangrene, with abscess; J98.11 Atelectasis; K56.0 Paralytic ileus; N17.9 Acute kidney failure, unspecified; D12.0 Benign neoplasm of cecum; I10 Essential (primary) hypertension; K80.20 Calculus of gallbladder without cholecystitis without obstruction; N28.1 Cyst of kidney, acquired; Z53.31 Laparoscopic surgical procedure converted to open procedure
CPT/HCPCS: 36415; 74018; 74022; 74176; 80048; 80053; 80076; 81001; 82962; 83605; 83690; 83880; 84484; 85007; 85025; 85610; 85730; 87040; 87071; 87075; 87086; 88307; 93005; 96361; 96365; 96367; 96375; A7015; C1769; J0330; J0360; J0744; J1100; J1170; J1650; J1885; J2001; J2212; J2270; J2370; J2405; J2543; J2704; J2710; J3010; J3370; J3490; J7030; J7120; Q9966; 97110; 97116; 97530; 99285-25; G0378